=== PATIENT | female | born 1955 | race Caucasian/White ===

== ENCOUNTER 2019-07-09 10:30 | Outpatient (RCR) | payer OTHER, SELFPAY ==
[2019-06-11 14:01] VITALS: BMI 32.9
--- NOTE | 2019-06-24 12:50 | HP.PTEVAL ---
Patient's Visit Information SUNDAR DOWNEY is a 63 year old F referred to Physical Therapy by Galdino Angulo MD with a diagnosis of R achilles tendonitis. Date of Evaluation: 06/24/19 Physical Therapist: Dominik Frey DPT, OCS, CSCS - Visit Plan Frequency: 2x /Week Duration: 2 Months Plan: 2x/week for 4-8 weeks for. 1. US nonthermal to R achilles, rollout gastroc soelus and stretch same. 2. Eccentric strength R gastroc-soleus to tolerance. 3. strengthen R ankle. 4. pt using a heel lift so monitor this effectiveness for need to go to boot or crutch. 5. ES if needed for pain. - Subjective Findings: Achilles tendon bothering her since January vacationa dn worsening. Worse wehn on it. Was walking in sand at beach more than usual. Painful when got home. Pain is R achilles and swollen. Pain is to 4/10 after walking, lessens at rest but is constant. Tender to the touch. Went to family doctor recently and sent for PT. didnt think it was ruptured. No meds for this. No x ray. Sleep is sometimes interrupted by waking her up. 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 Drives up to [place] and it hurts ot drive. Morngings are tough as she has RA also. Basic ADLs are OK. Can't walk for fitness. Normally 30 minutes on TM and has stopped due to pain. - Pain R achilles Pain Intensity (Out of 10): 1 Pain Intensity Range: 1, 4 - Objective R antalgia slightly with gait today and more noticeable descending steps with initial plant. Trasnfers, walks and steps I today. Tender to palpation midsubstance of R achilles tendon2 inches above insertion. Palpable nodule medially on tendon. R ankle 0 DF knee straight and bent vs 5 degrees on L, tight is gastroc and soleus. Knee adn hip aROM WFL and withotu pain. Sensation LE WNL to gross light touch. Ankle strength 4 PF R, 4+ L and painful to walk on R toe. inv and ev and DF 4+ L and 4 R, No pain. - Goals Goal 1:: Sleep and walk at home without increased pain Goal Time Frame: 4-6 Weeks Goal 2:: Pt feel 90% better in achilles pain at 1/10 and intermittent. Goal Time Frame: 6-8 Weeks Goal 3:: I HEP to minimize future problems Goal Time Frame: 6-8 Weeks Goal 4:: LEFS <20% disability Goal Time Frame: 6-8 Weeks Goal 5:: Steps reciprocally without pain. Goal Time Frame: 6-8 Weeks - Rehabilitation Potential Physical Therapy Diagnosis: R achilles tendonitis Rehabilitation Potential: Fair - Anticipated Interventions Patient/Client Instruction: Educate patient on: Condition, Plan of Care For the Purpose of:: To decrease pain, To increase ROM, To improve muscle performance and motor function, To increase tolerance to activity/condition/position, To improve ability of physical actions for home/community/work/leisure, To improve gait and locomotor functions Therapeutic Exercise to Include: Strength training, Flexibilty training, Gait and locomotor training, Passive ROM, Active ROM For the Purpose of:: To decrease pain, To increase ROM, To improve muscle performance and motor function, To increase tolerance to activity/condition/position, To improve ability of physical actions for home/community/work/leisure Manual Therapy Techniques to Include: Passive ROM, Soft tissue mobilization For the Purpose of:: To decrease pain, To improve nutrient delivery to tissue, To increase tolerance to activity/condition/position Orthotics: Shoe insert Comment: heel lift For the Purpose of:: To improve ability of physical actions for home/community/work/leisure TENS: Yes Ultrasound (thermal/non thermal): Yes - nonthermal R achilles For the Purpose of:: To decrease pain, To decrease swelling/inflammation Thank you for the opportunity to evaluate your patient. For Medicare and Medicare HMO plans, please review the plan of care and approve it. It will need to be FAXED BACK to us at [phone] for Medicare purposes. For Medicare only, by signing this I certify the plan of care. Please let me know if there are questions or concerns regarding this plan of care. Physician Signature: Date:
--- NOTE | 2019-09-05 09:17 | HP.PT.NRP ---
HP - Discharge Summary (1) - Patient Information SUNDAR DOWNEY was seen in my office for initial evaluation on 06/24/19. The following Plan of Care was established for this patient: Initial Frequency: 2x /Week Initial Duration: 2 Months - Anticipated Interventions Patient/Client Instruction: Educate patient on: Condition, Plan of Care For the Purpose of:: To decrease pain, To increase ROM, To improve muscle performance and motor function, To increase tolerance to activity/condition/position, To improve ability of physical actions for home/community/work/leisure, To improve gait and locomotor functions Therapeutic Exercise to Include: Strength training, Flexibilty training, Gait and locomotor training, Passive ROM, Active ROM For the Purpose of:: To decrease pain, To increase ROM, To improve muscle performance and motor function, To increase tolerance to activity/condition/position, To improve ability of physical actions for home/community/work/leisure Manual Therapy Techniques to Include: Passive ROM, Soft tissue mobilization For the Purpose of:: To decrease pain, To improve nutrient delivery to tissue, To increase tolerance to activity/condition/position Orthotics: Shoe insert Comment: heel lift For the Purpose of:: To improve ability of physical actions for home/community/work/leisure TENS: Yes Ultrasound (thermal/non thermal): Yes - nonthermal R achilles For the Purpose of:: To decrease pain, To decrease swelling/inflammation This patient was last seen in our office 07/09/19. Pertinent comments regarding their Physical therapy will appear below: Pt seen four visits of POC adn was feelign much better. she cancelled the remaining visits including final recheck. at this point, it has been over 6 weeks adn I will discontinue her due to nonattendance. At this point I will be discontinuing this patient from physical therapy. I would be happy to see this patient again in the future if found appropriate by the physician. Thank you! Dominik Frey, DPT, OCS, CSCS
== END 2019-07-09 19:00 | disposition home or self-care (01) ==
LOC: PT 10:30
PROVIDERS: Family Provider Family Medicine; PCP Family Medicine; Referring Provider Family Medicine; Visit Provider Family Medicine
DX: M76.61 Achilles tendinitis, right leg (principal)
CPT/HCPCS: 97110; 97161; 97530

== ENCOUNTER → 2020-09-23 | Outpatient (CLI) | payer BC, SELFPAY ==
[2020-06-16 13:33] VITALS: BMI 32.6
== END | disposition home or self-care (01) ==
LOC: MFPLAB 14:29 → LABSPEC 14:30
PROVIDERS: PCP Family Medicine; Referring Provider Family Medicine; Visit Provider Family Medicine
DX: Z20.822 Contact with and (suspected) exposure to COVID-19 (principal)
CPT/HCPCS: 87635; U0005; U0003

== ENCOUNTER → 2021-01-03 13:46 | Outpatient (CLI) | payer MEDICARE, BC, SELFPAY ==
[2020-06-16 13:33] VITALS: BMI 32.6
--- NOTE | 2021-01-03 13:53 | RAD_ITS ---
STUDY: X-RAY CHEST REASON FOR EXAM: Female, 65 years old. NON CARDIAC CP TECHNIQUE: PA and lateral views of the chest. COMPARISON: Comparison is made with prior study dated 01/07/2012. FINDINGS: Stable elevation of the right hemidiaphragm. There is no demonstrated pleural abnormality. Normal size heart. Normal mediastinum and trino. Normal visualized pulmonary arteries. There is atherosclerotic calcification of the aortic arch with tortuosity. There is demineralization of the osseous structures. Normal visualized ribs, clavicles, and shoulders. There is no demonstrated abnormality of the visualized soft tissue structures of the upper abdomen. RAD/Chest PA and Lateral IMPRESSION: Stable examination. No acute abnormality is seen. Electronically Signed: Sachin Mensah MD at 13:57 EDT , Service support ,
== END ==
PROVIDERS: PCP Family Medicine; Referring Provider Family Medicine; Visit Provider Family Medicine
DX: R07.89 Other chest pain (principal)
CPT/HCPCS: 71046

== ENCOUNTER → 2021-02-18 09:43 | Outpatient (CLI) | payer MEDICARE, BC, SELFPAY ==
[2021-02-18 09:13] VITALS: BMI 32.9
[2021-02-18 12:42] LABS: AST(SGOT) 31 U/L (15-37); Alanine Aminotransfer ALT/SGPT 58 U/L (13-56); Albumin, Serum 3.9 g/dL (3.2-5.0); Alkaline Phosphatase 87 U/L (45-117); Bilirubin, Direct 0.09 mg/dL (0.00-0.30); Cholesterol 207 mg/dL (200); Globulin 3.9 g/dL (2.2-4.2); High Density Lipoprotein 74 mg/dL; Protein, Total 7.8 g/dL (6.4-8.2); Triglycerides 95 mg/dL; Very Low Density Lipoprotein 19 mg/dL (5-40)
[2021-02-18 14:10] LABS: Vitamin D,25 Hydroxy 37.6 ng/mL
== END ==
PROVIDERS: Nurse Practitioner Family; PCP Internal Medicine; Referring Provider Internal Medicine; Visit Provider Internal Medicine
DX: E78.2 Mixed hyperlipidemia (principal); E78.00 Pure hypercholesterolemia, unspecified; M85.80 Other specified disorders of bone density and structure, unspecified site
CPT/HCPCS: 36415; 80061; 80076; 82306

== ENCOUNTER → 2021-06-01 09:10 | Outpatient (CLI) | payer MEDICARE, BC, SELFPAY ==
[2021-06-01 12:41] LABS: AST(SGOT) 38 U/L (15-37); Alanine Aminotransfer ALT/SGPT 66 U/L (13-56); Albumin, Serum 3.6 g/dL (3.2-5.0); Alkaline Phosphatase 88 U/L (45-117); Bilirubin, Direct 0.16 mg/dL (0.00-0.30); Cholesterol 189 mg/dL (200); Globulin 3.9 g/dL (2.2-4.2); High Density Lipoprotein 66 mg/dL; Protein, Total 7.5 g/dL (6.4-8.2); Triglycerides 138 mg/dL; Very Low Density Lipoprotein 28 mg/dL (5-40)
== END ==
PROVIDERS: PCP Internal Medicine; Referring Provider Nurse Practitioner Family; Visit Provider Nurse Practitioner Family
DX: E78.2 Mixed hyperlipidemia (principal); I25.10 Atherosclerotic heart disease of native coronary artery without angina pectoris
CPT/HCPCS: 36415; 80061; 80076

== ENCOUNTER 2021-08-19 11:25 | Outpatient (CLI) | payer MEDICARE, BC, SELFPAY ==
[2021-08-19 12:25] LABS: Absolute Lymphocyte Count 1.42 X10^3/uL (0.83-4.51); Basophil# 0.06 X10^3/uL; Basophil% 0.8 % (0-1); Eosinophil# 0.09 X10^3/uL; Eosinophils% 1.2 % (0-5); Hematocrit 45.1 % (37-47); Hemoglobin 15.8 g/dL (12.0-15.0); Lymphocyte # 1.42 X10^3/ul (0.83-4.51); Lymphocyte % 19.7 % (19-41); Mean Corpuscular Hgb 32.5 pg (27.0-32.0); Mean Corpuscular Volume 92.8 fL (81-99); Mean Platelet Vol. 8.3 fl (6.2-12.0); Monocyte# 0.58 X10^3/uL; NRBC Flagged by Analyzer 0 % (0-5); Neutrophil # 5.03 X10^3/uL (2.7-7.7); Neutrophil % 69.9 % (47-70); Platelet Count 216 K/mm3 (150-450); RBC Distribution Width CV 12.2 % (11.6-14.6); RBC Distribution Width SD 41.6 fl (35.1-43.9); Red Blood Count 4.86 M/mm3 (4.2-5.4); White Blood Count 7.2 K/mm3 (4.4-11.0)
[2021-08-19 13:03] LABS: Anion Gap 5 (5-15); BUN 17 mg/dL (7-18); BUN/Creat Ratio 30.4 RATIO (10-20); Calcium,Total 9.3 mg/dL (8.5-10.1); Chloride 106 mmol/L (98-107); Creatinine, Serum 0.56 mg/dL (0.55-1.02); EST Glomerular Filtration Rate 115 mL/min (>60); Est Glom Filt Rate - Afr Amer 140 mL/min (>60); Glucose 101 mg/dL (74-106); Potassium 4.3 mmol/L (3.5-5.1); Sodium Level 137 mmol/L (136-145)
== END 2021-08-19 23:59 | disposition short-term general hospital (02) ==
LOC: BIMLAB 11:26
PROVIDERS: PCP Internal Medicine; Referring Provider Internal Medicine; Visit Provider Internal Medicine
DX: I10 Essential (primary) hypertension (principal); I25.10 Atherosclerotic heart disease of native coronary artery without angina pectoris
CPT/HCPCS: 36415; 80048; 85025

== ENCOUNTER → 2021-12-09 | Outpatient (CLI) | payer MEDICARE, BC, SELFPAY ==
[2021-12-09 12:33] LABS: AST(SGOT) 41 U/L (15-37); Alanine Aminotransfer ALT/SGPT 64 U/L (13-56); Albumin, Serum 3.9 g/dL (3.2-5.0); Alkaline Phosphatase 86 U/L (45-117); Cholesterol 202 mg/dL (200); Globulin 3.7 g/dL (2.2-4.2); High Density Lipoprotein 57 mg/dL; Protein, Total 7.6 g/dL (6.4-8.2); Triglycerides 167 mg/dL; Very Low Density Lipoprotein 33 mg/dL (5-40)
== END | disposition home or self-care (01) ==
LOC: BIMLAB 08:54
PROVIDERS: PCP Internal Medicine; Referring Provider Nurse Practitioner Family; Visit Provider Nurse Practitioner Family
DX: E78.00 Pure hypercholesterolemia, unspecified (principal); E78.2 Mixed hyperlipidemia
CPT/HCPCS: 36415; 80061; 80076

== ENCOUNTER → 2022-06-05 | Outpatient (CLI) | payer MEDICARE, BC, SELFPAY ==
[2022-06-05 12:23] LABS: Anion Gap 8 (5-15); BUN 15 mg/dL (7-18); BUN/Creat Ratio 25.6 RATIO (10-20); Calcium,Total 9.6 mg/dL (8.5-10.1); Chloride 103 mmol/L (98-107); Creatinine, Serum 0.59 mg/dL (0.55-1.02); EST Glomerular Filtration Rate 109 mL/min (>60); Est Glom Filt Rate - Afr Amer 132 mL/min (>60); Glucose 109 mg/dL (74-106); Potassium 4.6 mmol/L (3.5-5.1); Sodium Level 137 mmol/L (136-145)
[2022-06-05 12:33] LABS: AST(SGOT) 27 U/L (15-37); Alanine Aminotransfer ALT/SGPT 46 U/L (13-56); Albumin, Serum 3.4 g/dL (3.2-5.0); Alkaline Phosphatase 89 U/L (45-117); Bilirubin, Direct 0.14 mg/dL (0.00-0.30); Cholesterol 191 mg/dL (200); Globulin 3.5 g/dL (2.2-4.2); High Density Lipoprotein 66 mg/dL; Protein, Total 6.9 g/dL (6.4-8.2); Triglycerides 123 mg/dL; Very Low Density Lipoprotein 25 mg/dL (5-40)
[2022-06-06 14:35] LABS: Hemoglobin A1c 5.4 % (3.8-5.6)
== END | disposition home or self-care (01) ==
LOC: BIMLAB 08:36
PROVIDERS: Nurse Practitioner Family; PCP Internal Medicine; Referring Provider Nurse Practitioner Family; Visit Provider Nurse Practitioner Family
DX: R73.09 Other abnormal glucose (principal); E78.00 Pure hypercholesterolemia, unspecified; I10 Essential (primary) hypertension
CPT/HCPCS: 36415; 80048; 80061; 80076; 83036

== ENCOUNTER → 2022-07-18 | Outpatient (CLI) | payer MEDICARE, BC, SELFPAY ==
[2022-07-18 10:59] LABS: Bacteria 0 SEEN /hpf (None Seen); Mucous, Urine 0 SEEN /hpf (<or=2+); Red Blood Cells-Urine 0 SEEN /hpf (0-5)
[2022-07-18 12:33] LABS: Absolute Lymphocyte Count 1.67 X10^3/uL (0.83-4.51); Absolute Neutrophil Count 6.4 X10^3/uL (2.0-7.7); Basophil# 0.07 X10^3/uL; Basophil% 0.8 % (0-1); Eosinophils% 1.1 % (0-5); Hematocrit 46.8 % (37-47); Hemoglobin 16.5 g/dL (12.0-15.0); Lymphocyte # 1.67 X10^3/ul (0.83-4.51); Lymphocyte % 18.6 % (19-41); Mean Corp Hgb Conc 35.3 g/dL (32-36); Mean Corpuscular Hgb 33.5 pg (27.0-32.0); Mean Corpuscular Volume 94.9 fL (81-99); Mean Platelet Vol. 8.5 fl (6.2-12.0); Monocyte# 0.71 X10^3/uL; Monocyte% 7.9 % (0-10); NRBC Flagged by Analyzer 0 % (0-5); Neutrophil # 6.42 X10^3/uL (2.7-7.7); Neutrophil % 71.3 % (47-70); Platelet Count 231 K/mm3 (150-450); RBC Distribution Width CV 12.1 % (11.6-14.6); RBC Distribution Width SD 41.9 fl (35.1-43.9); Red Blood Count 4.93 M/mm3 (4.2-5.4)
[2022-07-18 12:52] LABS: ALB/GLOB Ratio 1.1 RATIO (0.9-2.4); AST(SGOT) 36 U/L (15-37); Alanine Aminotransfer ALT/SGPT 55 U/L (13-56); Albumin, Serum 3.8 g/dL (3.2-5.0); Alkaline Phosphatase 94 U/L (45-117); Anion Gap 6 (5-15); BUN 12 mg/dL (7-18); BUN/Creat Ratio 16.5 RATIO (10-20); Calcium,Total 9.5 mg/dL (8.5-10.1); Chloride 104 mmol/L (98-107); Creatinine, Serum 0.73 mg/dL (0.55-1.02); EST Glomerular Filtration Rate 85 mL/min (>60); Est Glom Filt Rate - Afr Amer 103 mL/min (>60); Globulin 3.4 g/dL (2.2-4.2); Glucose 116 mg/dL (74-106); Lipase 134 U/L (73-393); Potassium 4.7 mmol/L (3.5-5.1); Protein, Total 7.2 g/dL (6.4-8.2); Sodium Level 138 mmol/L (136-145)
[2022-07-18 13:01] LABS: Color, Urine Yellow (Yellow); Glucose, Dipstick Normal (Normal); Ketone-Dipstick 5 mg/dl (Negative); Leukocyte Esterase-Dipstick 25 /ul (Negative); Nitrite-Dipstick Negative (Negative); Occult Blood-Urine Negative /ul (Negative); Protein-Dipstick 15 mg/dl (Negative); Urine Bilirubin Dipstick Negative (Negative); Urine Clarity Sl. Cloudy (Clear); Urine Urobilinogen 1 mg/dl (Normal)
[2022-07-18 13:12] LABS: Squamous Epithelial Cells - UA 0-5 SEEN /hpf (5-10); White Blood Cells 0-5 SEEN /hpf (0-5)
== END | disposition home or self-care (01) ==
LOC: BIMLAB 10:58 → RAD 11:18 → BIMLAB 12:09
PROVIDERS: PCP Internal Medicine; Referring Provider Physician Assistant; Visit Provider Physician Assistant
DX: I10 Essential (primary) hypertension (principal); R10.9 Unspecified abdominal pain
CPT/HCPCS: 36415; 80053; 81001; 83690; 85025; 86140

== ENCOUNTER → 2022-12-12 | Outpatient (CLI) | payer MEDICARE, BC, SELFPAY | END | disposition home or self-care (01) | PROVIDERS: PCP Internal Medicine; Visit Provider Internal Medicine | DX: R10.9 Unspecified abdominal pain (principal); K57.92 Diverticulitis of intestine, part unspecified, without perforation or abscess without bleeding | CPT/HCPCS: 87086; 87088 ==

== ENCOUNTER → 2023-04-09 | Outpatient (CLI) | payer MEDICARE, BC, SELFPAY ==
[2023-04-09 13:03] LABS: AST(SGOT) 30 U/L (15-37); Alanine Aminotransfer ALT/SGPT 51 U/L (13-56); Albumin, Serum 3.5 g/dL (3.2-5.0); Alkaline Phosphatase 94 U/L (45-117); Bilirubin, Direct 0.11 mg/dL (0.00-0.30); Cholesterol 188 mg/dL (200); Globulin 3.6 g/dL (2.2-4.2); High Density Lipoprotein 62 mg/dL; Protein, Total 7.1 g/dL (6.4-8.2); Triglycerides 134 mg/dL; Very Low Density Lipoprotein 27 mg/dL (5-40)
== END | disposition home or self-care (01) ==
LOC: BIMLAB 09:41
PROVIDERS: PCP Internal Medicine; Referring Provider Physician Assistant Medical; Visit Provider Physician Assistant Medical
DX: E78.2 Mixed hyperlipidemia (principal); Z95.5 Presence of coronary angioplasty implant and graft
CPT/HCPCS: 36415; 80061; 80076

== ENCOUNTER → 2023-04-23 | Outpatient (CLI) | payer MEDICARE, BC, SELFPAY ==
--- NOTE | 2023-04-23 16:35 | STRESSREP_ITS ---
Stress Test Report Date: 04/23/2023 Procedure: Exercise tolerance test/imaging study Indications: Coronary artery disease Consent: Per the patient Procedure: The patient exercised on a Tang protocol for 3 minutes and 34 seconds achieving a peak heart rate of 171 bpm (111% predicted maximal heart rate) with a peak blood pressure 168/90 mmHg and a peak MET capacity of 5.9 METs. The baseline ECG demonstrated sinus rhythm. The peak exercise ECG demonstrated no ischemic changes. Rare PVC noted in recovery. The functional capacity was considered suboptimal. There was no complaint of chest discomfort during exercise or recovery. The examination was discontinued secondary to target heart rate being achieved. The patient was injected with 11 mCi of technetium 99m Cardiolite and subsequently rest SPECT Cardiolite nuclear imaging was obtained in the horizontal long, vertical long, and short axis views. Post-exercise, the patient was injected with 34.9 mCi of technetium 99m Cardiolite and subsequently stress SPECT Cardiolite nuclear imaging was obtained in the horizontal long, vertical long, and short axis views. A gated Cardiolite study at peak stress was obtained. Rest and stress SPECT Cardiolite nuclear imaging status post realignment, normalization, and attenuation correction, demonstrates the appearance of relative uniform tracer uptake and myocardial perfusion appearing within normal limits. There is end systolic thickening and brightening. The gated Cardiolite study demonstrates myocardial thickening and inward wall motion. The reported LVEF is 79%. Impression: 1. Technically adequate (percent predicted maximal heart rate greater than 85%) exercise tolerance test 2. Peak exercise ECG with no ischemic changes 3. Rare PVC noted during recovery 4. Rest and stress SPECT Cardiolite nuclear imaging demonstrate relative uniform tracer uptake and myocardial perfusion appearing within normal limits. 5. The gated Cardiolite study reports an LVEF of 79%. This note was generated with HeadCountation software. It may contain incorrect words, spelling, and punctuation that were not noted in checking the note before signing.
== END | disposition home or self-care (01) ==
LOC: CVS 07:14
PROVIDERS: PCP Internal Medicine; Referring Provider Physician Assistant Medical; Visit Provider Physician Assistant Medical
DX: I25.10 Atherosclerotic heart disease of native coronary artery without angina pectoris (principal); Z95.5 Presence of coronary angioplasty implant and graft
CPT/HCPCS: 78452; 93017; A9500; A4216

== ENCOUNTER → 2023-04-25 | Outpatient (CLI) | payer MEDICARE, BC, SELFPAY ==
[2023-04-25 14:18] LABS: Absolute Lymphocyte Count 1.99 X10^3/uL (0.83-4.51); Absolute Neutrophil Count 8.2 X10^3/uL (2.0-7.7); Basophil# 0.06 X10^3/uL; Basophil% 0.5 % (0-1); Eosinophil# 0.14 X10^3/uL; Eosinophils% 1.2 % (0-5); Hematocrit 45.6 % (37-47); Hemoglobin 15.7 g/dL (12.0-15.0); Lymphocyte # 1.99 X10^3/ul (0.83-4.51); Lymphocyte % 17.6 % (19-41); Mean Corp Hgb Conc 34.4 g/dL (32-36); Mean Corpuscular Hgb 32.4 pg (27.0-32.0); Mean Platelet Vol. 8.3 fl (6.2-12.0); Monocyte# 0.79 X10^3/uL; NRBC Flagged by Analyzer 0 % (0-5); Neutrophil # 8.24 X10^3/uL (2.7-7.7); Neutrophil % 73.2 % (47-70); Platelet Count 267 K/mm3 (150-450); RBC Distribution Width CV 12.5 % (11.6-14.6); RBC Distribution Width SD 42.8 fl (35.1-43.9); Red Blood Count 4.85 M/mm3 (4.2-5.4); White Blood Count 11.3 K/mm3 (4.4-11.0)
[2023-04-25 14:25] LABS: International Normalized Ratio 0.9; Prothrombin Time (Protime)PT. 12.6 SECONDS (11.7-14.9)
[2023-04-25 14:37] LABS: Ferritin 151 ng/mL (8-252); LDH 178 U/L (84-246)
[2023-04-25 14:42] LABS: Hemoglobin A1c 5.5 % (3.8-5.6)
[2023-04-27 16:09] LABS: AFP, Tumor Marker 5.1 ng/mL (0.0-9.2); Anti-Centromere B Ab <0.2 AI (0.0-0.9); Anti-Chromatin <0.2 AI (0.0-0.9); Anti-Jo <0.2 AI (0.0-0.9); Anti-Mitochondrial AB <20.0 Units (0.0-20.0); Anti-Scleroderma-70 AB <0.2 AI (0.0-0.9); Anti-Smooth Muscle ABS 7 Units (0-19); Anti-dsDNA Ab <1 IU/mL (0-9); Cytoplasmic Ab (C-ANCA) <1:20 titer (Neg:<1:20); HEPATITIS B SURFACE AG Negative (Negative); Hep C Antibodies Non Reactive (Non Reactive); Hepatitis A IgM Antibody Negative (Negative); Hepatitis B Core AB IgM Negative (Negative); Perinuclear Ab (P-ANCA) <1:20 titer (Neg:<1:20); RNP Ab <0.2 AI (0.0-0.9); SJOGREN'S Anti-SS-A test < 0.2 AI (0.0-0.9); SJOGREN'S Anti-SS-B test < 0.2 AI (0.0-0.9); Smith Ab <0.2 AI (0.0-0.9)
== END | disposition home or self-care (01) ==
LOC: LAB 13:43
PROVIDERS: PCP Internal Medicine; Referring Provider Internal Medicine Gastroenterology; Visit Provider Internal Medicine Gastroenterology
DX: K76.0 Fatty (change of) liver, not elsewhere classified (principal); E11.9 Type 2 diabetes mellitus without complications; K52.831 Collagenous colitis; K57.92 Diverticulitis of intestine, part unspecified, without perforation or abscess without bleeding; K75.9 Inflammatory liver disease, unspecified; E78.2 Mixed hyperlipidemia
CPT/HCPCS: 36415; 80074; 82105; 82728; 83036; 83516; 83615; 85025; 85610; 86140; 86225; 86235; 86256

== ENCOUNTER → 2023-05-12 | Outpatient (CLI) | payer MEDICARE, BC, SELFPAY ==
--- NOTE | 2023-05-12 08:49 | US_ITS ---
STUDY: ABDOMINAL ULTRASOUND - RIGHT UPPER QUADRANT REASON FOR VISIT: Female, 67 years old . Fatty infiltration of the liver. TECHNIQUE: Ultrasound evaluation of the right upper quadrant was performed with real-time and static means-scale imaging. TECHNICAL QUALITY: Adequate. COMPARISON: None. FINDINGS: Liver: The liver measures 16 cm. There is increased echogenicity consistent with fatty infiltration. The bile ducts are within normal limits. There is hepatic color flow. The direction of portal flow is hepatopetal. There is no demonstrated mass lesion. Gallbladder: Normal distended gallbladder. The gallbladder wall measures 2.2 mm. There is a negative sonographic Schroeder''s sign. There is no pericholecystic fluid. There are no gallstones. Common Bile Duct (C.B.D.): The common bile duct measures 8.1 mm. Pancreas: Normal size of the head, body and tail of the pancreas. There is normal echogenicity of the pancreas. There is no demonstrated pancreatic mass or cyst. Right Kidney: Normal size of the right kidney. The right kidney measures 10.8 cm x 4.8 cm x 4.4 cm. Normal renal cortex. The right cortex measures 1.8 cm. There is no demonstrated renal mass or cyst. There is no right hydronephrosis. IMPRESSION: Fatty infiltration of the liver. Electronically Signed: Sachin Mensah MD at 13:27 EDT , STUDY: ABDOMINAL ULTRASOUND - ELASTOGRAPHY REASON FOR VISIT: Female, 67 years old. Fatty infiltration of the liver. TECHNIQUE: Liver stiffness measurements were obtained on a [employer] 85 ultrasound machine using a CA 1-7 probe following the SRU guidelines. 3 measurements were obtained using a 2-D-SWE method. TheIQR/M was 14% suggesting a quality data set. TECHNICAL QUALITY: Adequate. COMPARISON: None. FINDINGS: Liver: There is no demonstrated mass lesion. Median liver stiffness measured 7.73 kPa. Abdomen: There is no demonstrated mass lesion. US/Abdomen Limited IMPRESSION: Liver stiffness measures 7.73 kPa compatible with F2-F3 (Mild to moderate liver fibrosis) Metavir score. Electronically Signed: Sachin Mensah MD at 13:28 EDT ,
== END | disposition home or self-care (01) ==
LOC: US 08:49
PROVIDERS: PCP Internal Medicine; Referring Provider Internal Medicine Gastroenterology; Visit Provider Internal Medicine Gastroenterology
DX: K76.0 Fatty (change of) liver, not elsewhere classified (principal); K52.831 Collagenous colitis; K57.92 Diverticulitis of intestine, part unspecified, without perforation or abscess without bleeding
CPT/HCPCS: 76705; 76981

== ENCOUNTER → 2023-07-25 | Outpatient (CLI) | payer MEDICARE, BC, SELFPAY ==
[2023-07-25 12:40] LABS: AST(SGOT) 27 U/L (15-37); Alanine Aminotransfer ALT/SGPT 47 U/L (13-56); Albumin, Serum 3.6 g/dL (3.2-5.0); Alkaline Phosphatase 79 U/L (45-117); Bilirubin, Direct 0.06 mg/dL (0.00-0.30); Globulin 3.6 g/dL (2.2-4.2); Protein, Total 7.2 g/dL (6.4-8.2)
== END | disposition home or self-care (01) ==
LOC: BIMLAB 09:30
PROVIDERS: PCP Internal Medicine; Referring Provider Internal Medicine Rheumatology; Visit Provider Internal Medicine Rheumatology
DX: R74.8 Abnormal levels of other serum enzymes (principal)
CPT/HCPCS: 36415; 80076

== ENCOUNTER → 2023-08-06 | Outpatient (CLI) | payer MEDICARE, BC, SELFPAY ==
[2023-08-06 12:28] LABS: Erythrocyte Sedimentation Rate 12 mm/hr (0-30)
== END | disposition home or self-care (01) ==
LOC: BIMLAB 11:31
PROVIDERS: PCP Internal Medicine
DX: H34.231 Retinal artery branch occlusion, right eye (principal)
CPT/HCPCS: 36415; 85652; 86140

== ENCOUNTER → 2023-08-23 | Outpatient (CLI) | payer MEDICARE, BC, SELFPAY ==
--- NOTE | 2023-08-23 09:50 | ECHOCS_ITS ---
Version 2 Reason For Study: ASHD/CAD Procedure This was a 2D Doppler, Color Flow transthoracic echocardiogram. The study was technically difficult. Contrast injection was performed. Exam performed in department. Left Ventricle Normal LV size. Left ventricular systolic function is normal. The estimated ejection fraction is 60 %. Stage 1 diastolic dysfunction. No regional wall motion abnormalities noted. Right Ventricle Normal RV size. Normal systolic function. Atria Normal left atrium. Normal right atrium. Bubble contrast study negative for right to left interatrial shunt. Mitral Valve Normal mitral valve. Mild focal mitral valve calcification. Tricuspid Valve Normal tricuspid valve. Mild tricuspid valve insufficiency. Pulmonary artery systolic pressure is 24 mmHg. Aortic Valve Trisinus/trileaflet aortic valve. Mild focal aortic valve calcification. Pulmonic Valve The pulmonic valve is not well visualized. Great Vessels Normal aortic root. The pulmonary artery is normal size. Inferior vena cava collapse with sniff. Pericardium/Pleural No pericardial effusion. Medication 20 gauge I.V. with prn adaptor inserted into right arm. Diluted definity 2ml given slow IV push to enhance endocardial definition. Performed a rapid injection of agitated mix of 9 cc saline and 1cc air to assess for atrial septal defect. MMode/2D Measurements & Calculations LVIDd: 4.8 cm IVSd: 1.0 cm Ao root diam: 3.1 cm LVIDs: 3.3 cm LVPWd: 0.94 cm LA dimension: 4.0 cm RVDd: 3.1 cm FS: 31.7 % LAV(MOD-bp): 45.1 ml LVAd ap4: 27.4 cm2 SV(MOD-sp4): 42.4 ml LAV(MOD-bp) Indexed: 21.9 ml/m2 LVLd ap4: 8.4 cm LAV(MOD-sp2): 37.4 ml EDV(MOD-sp4): 72.7 ml LAV(MOD-sp4): 48.8 ml EDV(sp4-el): 75.8 ml LVAs ap4: 15.7 cm2 LVLs ap4: 6.7 cm ESV(MOD-sp4): 30.3 ml ESV(sp4-el): 31.2 ml EF(MOD-sp4): 58.3 % EF(sp4-el): 58.9 % SV(sp4-el): 44.7 ml LA A4 area: 17.8 cm2 RA A4 area: 11.1 cm2 TAPSE: 1.1 cm Time Measurements MV dec time: 0.41 sec Doppler Measurements & Calculations MV E max peter: 46.0 cm/sec Lat Peak E' Peter: 6.0 cm/sec Med Peak E' Peter: 6.1 cm/sec MV A max peter: 88.3 cm/sec E/E' lat: 7.7 E/E' med: 7.5 MV E/A: 0.52 MV V2 max: 113.5 cm/sec MV P1/2t max peter: 68.2 cm/sec Ao V2 max: 111.3 cm/sec MV max P.2 mmHg MV P1/2t: 130.1 msec Ao max P.0 mmHg MV V2 mean: 51.0 cm/sec Ao V2 mean: 78.7 cm/sec MV mean P.3 mmHg MV dec slope: 153.7 cm/sec2 Ao mean P.8 mmHg MV V2 VTI: 28.6 cm MVA(P1/2t): 1.7 cm2 Ao V2 VTI: 26.0 cm AV (velocity ratio): 0.73 LV V1 max: 88.2 cm/sec PA V2 max: 67.7 cm/sec TR max peter: 229.5 cm/sec LV V1 max P.1 mmHg TR max P.1 mmHg LV V1 mean P.7 mmHg LV V1 mean: 61.8 cm/sec LV V1 VTI: 19.1 cm ECHO/Echo Complete W/ Contrast Interpretation Summary Normal LV size. Left ventricular systolic function is normal. The estimated ejection fraction is 60 %. Mild focal mitral valve calcification. Bubble contrast study negative for right to left interatrial shunt. Stage 1 diastolic dysfunction. Contrast injection was performed. Ordering Physician: Daisha Davis Referring Physician: Janis Lehman Performed By: Jamaal Cruz RCS
--- NOTE | 2023-08-23 09:50 | CDU_ITS ---
Reason For Study: retinal occlusion Rt. Velocities/BP Lt. Velocities/BP Prox CCA 71.1/12.6 cm/sec. Prox CCA 81.4/15.1 cm/sec. Mid CCA 73.0/15.4 cm/sec. Mid CCA 59.3/16.3 cm/sec. Dist CCA 50.4/13.5 cm/sec. Dist CCA 56.4/16.8 cm/sec. Prox ICA 265.1/83.7 cm/sec. Prox ICA 64.2/20.6 cm/sec. Mid ICA 226.3/60.4 cm/sec. Mid ICA 73.8/24.8 cm/sec. Dist ICA 66.4/20.1 cm/sec. Dist ICA 101.3/24.6 cm/sec. Rt. ICA/CCA = 3.6. Lt. ICA/CCA = 1.7. Prox ECA 84.4/10.7 cm/sec. Prox ECA 67.4/8.0 cm/sec. Rt. Vert. 43.7/14.5 cm/sec. Lt. Vert. 53.5/14.2 cm/sec. Right Extracranial There is heterogeneous, irregular atherosclerotic plaque noted in the right common carotid artery. There is heterogeneous, irregular atherosclerotic plaque noted in the right internal carotid artery. There is intimal thickening but no significant atherosclerotic plaque noted in the right external carotid artery. Antegrade flow is noted in the right vertebral artery. Left Extracranial There is homogeneous, smooth atherosclerotic plaque noted in the left common carotid artery. There is heterogeneous, irregular atherosclerotic plaque noted in the left internal carotid artery. There is heterogeneous, irregular atherosclerotic plaque noted in the left external carotid artery. Antegrade flow is noted in the left vertebral artery. Procedure Carotid Duplex [id number]. This is a Carotid Duplex examination using B-mode, color flow and specral Doppler. The exam was diagnostic. Prelim called to Margy BAHENA and to voicemail to Daisha SPEAR. Exam performed in department. VL/Carotid Duplex Ultrasound Interpretation Summary Severe (>70%) stenosis right extracranial internal carotid. Mild (<50%) stenosis left extracranial internal carotid. Patent and antegrade vertebrals bilaterally. Ordering Physician: Daisha Davis Performed By: Lucas Kelley RVT
--- OUTSIDE RECORDS SUMMARY | 2023-08-23 10:15 | XMS RPT_ITS | CCD ---
Author Name Unknown Address [address] [facility] [address] [place] [address] Organization [facility] Care Team Providers Care Naphthalene Operator Helper Name Role Phone Miguel GERMAN, Brad Christianson Unavailable Jenny Bueno Unavailable Unavailable Sage BAHENA, Daisha Cook Unavailable JEISON ANTUNEZ Unavailable Unavailable JEISON ANTUNEZ Unavailable Unavailable NO REFERRING DR Cutler Unavailable JEISON ANTUNEZ Unavailable Unavailable JEISON ANTUNEZ Unavailable Unavailab JEISON Lopes Unavailable Unavailab dannielle Antunez MD, Jeison Kelly Unavailable Sage BAHENA, Daisha Cook Unavailable [phone] Deepak Verduzco Unavailable Unavailable SHARRON MANSFIELD Primary Care Unavailable CAMILA DE PAZ Referring Unavailable SHYLA GERMAN, DR SHARRON Atwood Primary Care Physician [phone] SHYLA GERMAN, DR SHARRON Atwood Primary Care Unavailable KYLER GONCALVES Attending UnavailKYLER Gupta Referring UnavailDR DELROY Brown DO Attending Omayra MANSFIELD MD, DR SHARRON Atwood Primary Care Unavailable DR DELROY MOSQUEDA DO Attending Unavailable SHYLA GERMAN, DR SHARRON Atwood Primary Care Unavailable Sharron Mansfield MD Primary Care Provider Allergies Allergy Classification Reported Allergen(s) Allergy Type Date of Onset Reaction(s) Facility (1 source) adalimumab; Translations: [HUMIRA] Drug Allergy [facility] Repository (1 source) prasugrel; Translations: [EFFIENT] Drug Allergy [facility] Repository Medications Current Medications Medication Drug Class(es) Dates Sig (Normalized) Sig (Original) 1 ml abatacept 125 mg/ml prefilled syringe (13 sources) Selective T Cell Costimulation Modulator Start: 08-01-2018 Orencia Prefilled Syringe 125 mg/mL subcutaneous solution Dose : 125 mg =, Subcutaneous, , 0 Refill(s) Start Date: 08/01/18 Status: Ordered Completed/Discontinued Medications Medication Drug Class(es) Dates Sig (Normalized) Sig (Original) atorvastatin 80 mg oral tablet (6 sources) HMG-CoA Reductase Inhibitor Start: 09-19-2017 take 1 tablet by mouth once daily at bedtime atorvastatin (LIPITOR) 80 mg tablet Take 80 mg by mouth daily at bedtime. 3 02/19/2019 Active Problems Active Problems Problem Classification Problem Date Documented Date Episodic/Chronic Anxiety disorders (1 source) Anxiety disorder, unspecified; Translations: [ANXIETY DISORDER UNSPECI] Onset: 03-20-2017 Chronic Coronary atherosclerosis and other heart disease (9 sources) Atherosclerotic heart disease of [place] coronary artery without angina pectoris; Translations: [Coronary atherosclerosis] Onset: 03-30-2016 03-30-2016 Chronic Disorders of lipid metabolism (9 sources) Hyperlipidemia; Translations: [Hyperlipidemia, unspecified] Onset: 09-16-2014 09-16-2014 Chronic Esophageal disorders (1 source) Gastro-esophageal reflux disease without esophagitis; Translations: [GERD WITHOUT ESOPHAGITIS] Onset: 03-20-2017 Chronic Essential hypertension (9 sources) Hypertensive disorder; Translations: [Essential (primary) hypertension] Onset: 09-16-2014 09-16-2014 Chronic Mood disorders (1 source) Major depressive disorder, single episode, unspecified; Translations: [BART DEPRESS D/O SINGLE E] Onset: 03-20-2017 Osteoarthritis (1 source) Osteoarthritis of knee; Translations: [Unilateral primary osteoarthritis, right knee] Chronic Other acquired deformities (2 sources) Acquired genu varum; Translations: [Varus deformity, not elsewhere classified, right knee] Episodic Other aftercare (1 source) Aftercare following joint replacement surgery; Translations: [Aftercare following joint replacement surgery] Chronic Other circulatory disease (1 source) H/O: artificial organ/tissue; Translations: [Presence of other vascular implants and grafts] Chronic Other connective tissue disease (1 source) Artificial knee joint present; Translations: [Presence of right artificial knee joint] Chronic Other connective tissue disease (1 source) Disorder of soft tissue; Translations: [Other specified soft tissue disorders] Episodic Other connective tissue disease (1 source) Musculoskeletal symptom; Translations: [Other symptoms and signs involving the musculoskeletal system] Episodic Other nervous system disorders (1 source) Walking disability; Translations: [Difficulty in walking, not elsewhere classified] Chronic Other non-traumatic joint disorders (1 source) Pain in right knee; Translations: [Pain of right knee joint] Episodic Other nutritional; endocrine; and metabolic disorders (20 sources) Body mass index (BMI) 32.0-32.9, adult; Translations: [Body mass index (BMI) 30.0-30.9, adult] Onset: 09-17-2014 Resolved: 01-15-2017 03-31-2015 Chronic Other nutritional; endocrine; and metabolic disorders (8 sources) Body mass index (BMI) 31.0-31.9, adult; Translations: [Body mass index (BMI) 31.0-31.9, adult] Onset: 09-17-2014 Resolved: 01-15-2017 09-29-2015 Chronic Other nutritional; endocrine; and metabolic disorders (2 sources) Body mass index (BMI) 30.0-30.9, adult; Translations: [Body mass index (BMI) 30.0-30.9, adult] Onset: 01-15-2017 01-15-2017 Chronic Other screening for suspected conditions (not mental disorders or infectious disease) (3 sources) Encounter for screening mammogram for malignant neoplasm of breast; Translations: [Patient encounter status] Onset: 07-14-2022 07-14-2022 Episodic Rheumatoid arthritis and related disease (1 source) Rheumatoid arthritis, unspecified; Translations: [RHEUMATOID ARTHRITIS UNS] Onset: 03-20-2017 Chronic Unclassified (5 sources) Percutaneous transluminal coronary angioplasty ; Translations: [Coronary angioplasty status] Onset: 09-16-2014 09-16-2014 Unclassified (6 sources) Long-term drug therapy; Translations: [Other custodial (current) drug therapy] Onset: 09-18-2014 Resolved: 04-01-2015 04-01-2015 Past or Other Problems Problem Classification Problem Date Documented Da te Episodic/Chronic Coronary atherosclerosis and other heart disease (1 source) Presence of coronary angioplasty implant and graft; Translations: [PRESENCE COR ANGPLSTY IM] Onset: 03-20-2017 Episodic Nonmalignant breast conditions (5 sources) Hypertrophy of breast; Translations: [Fat necrosis of breast] Onset: 01-12-2017 11-07-2017 Episodic Nonspecific chest pain (7 sources) Chest pain, unspecified; Translations: [Chest pain, unspecified] Onset: 09-16-2014 09-16-2014 Episodic Other aftercare (15 sources) Long-term (current) use of other medications; Translations: [Other custodial (current) drug therapy] Onset: 09-18-2014 Resolved: 04-01-2015 04-01-2015 Episodic Other aftercare (1 source) Postoperative visit; Translations: [Encounter for other specified surgical aftercare] Onset: 09-19-2017 09-19-2017 Episodic Other bone disease and musculoskeletal deformities (2 sources) Osteopenia; Translations: [Other specified disorders of bone density and structure, unspecified site] Onset: 03-26-2018 03-26-2018 Episodic Residual codes; unclassified (2 sources) Family history of ischemic heart disease; Translations: [Family history of ischemic heart disease and other diseases of the circulatory system] Onset: 09-16-2014 09-16-2014 Episodic Screening or history of mental health and substance abuse (1 source) Personal history of nicotine dependence; Translations: [PERSONAL HISTORY OF SHAKIR] Onset: 03-20-2017 Episodic Unclassified (12 sources) FH: Raised blood lipids; Translations: [Family history of ischemic heart disease] Onset: 09-16-2014 11-05-2015 Episodic Unclassified (1 source) Problem Results Test Name Value Interpretation Reference Range Facil ity Vital Signs Date Time Vital Sign Value Performing Clinician Facility 01-18-2017 09:04-0400 Heart rate 72 /min Deepak Verduzco [facility] Work Phone: 01-15-2017 11:58-0400 BMI (Body Mass Index) 30.82 kg/m2 Brad Rivera MD [facility] Work Phone: 01-15-2017 11:58-0400 BP Diastolic 82 mm[Hg] Brad Rivera MD [facility] Work Phone: 01-15-2017 11:58-0400 BP Systolic 128 mm[Hg] Brad Rivera MD [facility] Work Phone: 01-15-2017 11:58-0400 Height 167.64 cm Brad Rivera MD [facility] Work Phone: 01-15-2017 11:58-0400 Pulse (Heart Rate) 64 /min [facility] Work Phone: 01-15-2017 11:58-0400 Respiratory Rate 16 /min Brad Rivera MD [facility] Work Phone: 01-15-2017 11:58-0400 Weight 86.64 kg Brad Rivera MD [facility] Work Phone: 03-30-2016 15:50-0400 BSA (Body Surface Area) 1.98 m2 Brad Rivera MD [facility] Work Phone: 11-05-2015 16:14-0400 Heart rate 68 /min Daisha Cazares RN [facility] Work Phone: 09-17-2014 14:58-0500 Height 167.64 cm Brad Rivera MD [facility] Work Phone: NEGATED: Highlighted [id number] 11:30-0500 BMI (Body Mass Index) 32.72 kg/m2 Kristen Arevalo RN [facility] Work Phone: NEGATED: Highlighted [id number] 11:30-0500 BP Diastolic 81 mm[Hg] Kristen Arevalo RN [facility] Work Phone: NEGATED: Highlighted [id number] 11:30-0500 BP Systolic 123 mm[Hg] Kristen Arevalo RN [facility] Work Phone: NEGATED: Highlighted [id number] 11:30-0500 Height 167.64 cm Kristen Arevalo RN [facility] Work Phone: NEGATED: Highlighted [id number] 11:30-0500 Height 168 cm Kristen Arevalo RN [facility] Work Phone: NEGATED: Highlighted [id number] 11:30-0500 Pulse (Heart Rate) 80 /min Kristen Arevalo RN [facility] Work Phone: NEGATED: Highlighted [id number] 11:30-0500 Weight 91.63 kg Kristen Arevalo RN [facility] Work Phone: NEGATED: Highlighted [id number] 11:30-0500 Weight 92 kg Kristen Arevalo RN [facility] Work Phone: Encounters Encounter Date Encounter Type Care Provider Facility Start: 07-04-2023 Orders Only Camila higgins MD Work Phone: Appointment Center Procedures Date Procedure Procedure Detail Performing Clinician Start: 07-14-2022 Screening mammograph y bi 2-view breast inc cad Camila De Paz MD Work Phone: Start: 08-06-2018 Acquired trigger fin carolin (disorder) DR DELROY MOSQUEDA DO Plan of Treatment Date Care Activity Detail Author Start: 07-14-2023 Mammography Mammogram Screening [facility] Start: 07-14-2023 Screening for malignant neoplasm of breast Mammogram Screening [facility] Start: 03-30-2023 Covid-19 Vaccine ( season) Covid-19 Vaccine ( season) [facility] Start: 03-30-2023 Influenza vaccination Influenza Vaccine (#1) [facility] Start: 07-30-2022 Advance Directive Discussion Advance Directive Discussion [facility] Start: 07-30-2022 Depression Assessment Depression Assessment [facility] Start: 08-25-2021 Lipid 1996 panel - Serum or Plasma Lipid Screening [facility] Start: 08-25-2021 Lipid panel Lipid Screening [facility] Start: 09-11-2018 End: 09-11-2018 Appointment Appointment [facility] Work Phone: Start: 08-17-2017 End: 02-27-2017 *Hepatic Function Panel *Hepatic Function Panel [facility] Work Phone: Start: 08-17-2017 End: 02-27-2017 Lipid 1996 panel *Lipid Profile CC PCP [facility] Work Phone: Start: 01-18-2017 End: 01-18-2017 Appointment Appointment [facility] Work Phone: Start: 01-18-2017 End: 01-19-2017 Echocardiography Echocardiogram (complete) [facility] Work Phone: Start: 01-18-2017 End: 01-18-2017 Electrocardiogram, complete EKG (In office) [facility] Work Phone: Start: 01-18-2017 End: 01-19-2017 Nuclear stress test -exercise Nuclear stress test -exercise [facility] Work Phone: Start: 01-15-2017 End: 01-15-2017 Follow Up Appt 6 months Follow Up Appt 6 months [employer] [facility] [facility] Work Phone: Start: 01-15-2017 End: 01-19-2017 Follow Up Appt Other Follow Up Appt Other [facility] Work Phone: Start: 01-15-2017 End: 01-15-2017 MMM MMM [facility] Work Phone: Start: 08-25-2016 End: 02-14-2017 *Hepatic Function Panel *Hepatic Function Panel [facility] Work Phone: Start: 08-25-2016 End: 02-14-2017 Lipid panel [AGGREGATE] *Lipid Profile CC PCP [facility] Work Phone: Start: 03-30-2016 End: 03-30-2016 Follow Up Appt 6 months Follow Up Appt 6 months [facility] Work Phone: Start: 03-30-2016 End: 03-30-2016 PFM PFM [facility] Work Phone: Start: 01-27-2016 End: 02-23-2016 *Hepatic Function Panel *Hepatic Function Panel [facility] Work Phone: Start: 01-27-2016 End: 02-23-2016 Lipid panel [AGGREGATE] *Lipid Profile CC PCP [facility] Work Phone: Start: 11-05-2015 End: 11-08-2015 Follow Up Appt 6 months Follow Up Appt 6 months [facility] Work Phone: Start: 11-05-2015 End: 11-08-2015 Nuclear stress test -exercise Nuclear stress test -exercise [facility] Work Phone: Start: 11-05-2015 End: 11-08-2015 PFM PFM [facility] Work Phone: Start: 2015 RSV Vaccine (1 - 1-dose 60+ series) RSV Vaccine (1 - 1-dose 60+ series) [facility] Start: 09-29-2015 End: 10-27-2015 *Hepatic Function Panel *Hepatic Function Panel [facility] Work Phone: Start: 09-29-2015 End: 11-08-2015 Follow Up Appt 6 months Follow Up Appt 6 months [facility] Work Phone: Start: 09-29-2015 End: 10-27-2015 Lipid panel [AGGREGATE] *Lipid Profile CC PCP [facility] Work Phone: Start: 09-29-2015 End: 11-08-2015 MMM MMM [facility] Work Phone: Start: 03-31-2015 End: 03-31-2015 Follow Up Appt 6 months Follow Up Appt 6 months [facility] Work Phone: Start: 03-31-2015 End: 03-31-2015 PFM PFM [facility] Work Phone: Start: 03-18-2015 End: 04-01-2015 *Hepatic Function Panel *Hepatic Function Panel [facility] Work Phone: Start: 03-18-2015 End: 04-01-2015 Lipid panel [AGGREGATE] *Lipid Profile CC PCP [facility] Work Phone: Start: 09-17-2014 End: 09-17-2014 Electrocardiogram, complete EKG (In office) [facility] Work Phone: Start: 09-17-2014 End: 09-17-2014 Follow Up Appt 6 months Follow Up Appt 6 months [facility] Work Phone: Start: 09-17-2014 End: 09-17-2014 PFM PFM [facility] Work Phone: Start: 02-27-2010 Diabetes Screening Diabetes Screening [facility] Start: 10-30-2000 Cologuard (FIT-DNA) Cologuard (FIT-DNA) [facility] Start: 10-30-2000 Colonoscopy Colonoscopy [facility] Start: 10-30-2000 Colorectal Cancer Screening Colorectal Cancer Screening [facility] Start: 10-30-[address] Colonography [facility] Start: 10-30-2000 Fecal Occult Blood Fecal Occult Blood [facility] Start: 10-30-2000 Screening for malignant neoplasm of colon [facility] Start: 10-30-2000 Sigmoidoscopy Sigmoidoscopy [facility] Start: 10-30-1974 Shingrix Vaccine (1 of 2) Shingrix Vaccine (1 of 2) [facility] Start: 10-30-1974 Urine microalbumin profile DTaP,Tdap,Td Vaccine (1 - Tdap) [facility] Start: 10-30-1973 Hepatitis C Screening Hepatitis C Screening [facility] Start: 10-30-1973 Hepatitis C screening Hepatitis C Screening [facility] Start: 10-30-1961 Pneumococcal Vaccine: 65+ (1 - PCV) Pneumococcal Vaccine: 65+ (1 - PCV) [facility] End: 08-02-2024 MARILYN SCREENING MARILYN SCREENING Radiology Routine Encounter for screening mammogram for malignant neoplasm of breast 1 Occurrences starting 07/10/2023 until 08/02/2024 [facility] Work Phone: Immunizations Immunization Date Immunization Notes Care Provider Fa cility 05-31-2022 influenza virus vaccine, unspecified formulation Screen [facility] 11-03-2020 COVID-19, mRNA, LNP- S, PF, 100 mcg or 50 mcg dose; Translations: [Moderna COVID-19 Vaccine] DR DELROY MOSQUEDA DO [facility] 10-06-2020 COVID-19, mRNA, LNP- S, PF, 100 mcg or 50 mcg dose; Translations: [Moderna COVID-19 Vaccine] DR DELROY MOSQUEDA DO [facility] 04-15-2019 influenza, injectabl e, quadrivalent, contains preservative Screen [facility] No information available. Kristen Arevalo RN [facility] Work Phone: Payers Date Payer Category Payer Medicare [id number] 2020 Medicare [id number] 2020 Medicare MEDICARE MEDICAR E A AND B [id number] 2020-Present [phone] [address] [address] [place] [address] Medicare [id number] 2020 Unknown YURYEM ANTHEM ME DICARE SUPPLEMENT [id number] 2020-Present [phone] [address] [place] [address] Indemnity [id number] 1955 Unknown [id number] 1955 Unknown [id number] 1955 Unknown [id number] Unknown [id number] Social History Date Type Detail Facility Start: 09-11-2018 End: 09-11-2018 Assertion Unknown if ever smoked [facility] Work Phone: Start: 01-05-2012 End: 08-01-2018 Tobacco smoking status Ex-smoker (finding) [facility] Sex Assigned At Sex [facility] End: 01-28-2008 History of tobacco use Current smoker [facility] Work Phone: End: 01-28-2008 History of tobacco use Cigarette Smoker [facility] Work Phone: Start: 01-05-2012 End: 07-05-2020 Cigarettes smoked current (pack per day) - Reported 0.5 [facility] Start: 01-05-2012 Tobacco use and exposure Smokeless tobacco non-user [facility] Work Phone: Start: 07-13-2021 Alcohol intake Current drinke r of alcohol (finding) [facility] Start: 07-05-2020 End: 07-13-2021 Tobacco use panel [facility] National Score (1-10 0), lower number is lower risk Not on file [facility] Start: 1955 Sex Assigned At Not on file [facility] Functional Status Date Assessment Result Facility 11-15-2022 Functional Status Objective: Observation: Pt with dressing over incision with no abnormal signs present. Palpation: Pt with slight tenderness globally surrounding R knee. Swelling: R knee: 2 in. above mid patella: 48 cm, mid-patella: 46.5 cm, 2 in. below mid patella: 40.5; L knee: 2 in. above mid patella: 44 cm, mid-patella: 40 cm, 2 in. below mid patella:41 cm AROM right knee flexion [68 deg], extension [-15 deg] PROM right knee flexion [71 deg], extension [-13 deg] Right hip strength flexion [2+/5], abduction [4-/5], adduction [4+/5], extension [4+/5], knee flexion [2+/5], knee extension [2+/5], ankle DF [4+/5], PF [2/5] Left hip strength flexion [5/5], abduction [5/5], adduction [5/5], extension [5/5], knee flexion [5/5], knee extension [5/5], ankle DF [5/5], PF [5/5] Tandem stance on left [0 seconds], right [8 seconds] SLS on left [2 seconds], right [NT due to pain] Transfers: Pt requiring increased height of chair in order to safely perform transfer independently. Pt performing transfers with FWW. Gait- Pt ambulating with FWW at eval with antalgic gait pattern with decreased R knee flexion throughout swing phase. Stairs- Pt requiring SBA with stairs with step-to pattern. Pt currently using FWW with 2 steps to enter home. [facility] Progress note 07-14-2022 Note Date & Type Note Facility 07-14-2022 Note HNO ID: [id number] Author: RT Marty(R) Service: ? Author Type: Technologist Type: Progress Notes Filed: 07/14/2022 1:06 PM Note Text: Radiology Service Progress Note PATIENT NAME: Stacey Wylie DATE OF SERVICE: July 14, 2022 TIME: 1:06 PM PATIENT IDENTITY VERIFICATION COMPLETED USING TWO (2) IDENTIFIERS: Name and Date of confirmed by patient verbally. FALL SCREENING: Has the patient had 2 falls in the last year or 1 fall with injury or currently using an Ambulatory Assistive Device (Walker, Cane, Wheelchair, Crutches, etc.)? No PATIENT GENDER DATA: Female. status: : No status: NO. PATIENT RELEVANT IMPLANT DATA REVIEWED: Not Applicable RADIOLOGY DEPARTMENT: Mammography PERIPHERAL IV DATA: Not applicable SIGNED BY: RT Marty(R) July 14, 2022 1:06 PM [facility] History of Present illness Narrative 07-14-2022 Maritza Hankins RT(R) - 07/14/2022 12:50 PM EST Note Date & Type Note Facility 07-14-2022 History of Presen t illness Narrative Radiology Service Progress Note PATIENT NAME: Stacey Wylie DATE OF SERVICE: July 14, 2022 TIME: 1:06 PM PATIENT IDENTITY VERIFICATION COMPLETED USING TWO (2) IDENTIFIERS: Name and Date of confirmed by patient verbally. FALL SCREENING: Has the patient had 2 falls in the last year or 1 fall with injury or currently using an Ambulatory Assistive Device (Walker, Cane, Wheelchair, Crutches, etc.)? No PATIENT GENDER DATA: Female. status: : No status: NO. PATIENT RELEVANT IMPLANT DATA REVIEWED: Not Applicable RADIOLOGY DEPARTMENT: Mammography PERIPHERAL IV DATA: Not applicable SIGNED BY: Maritza Hankins RT(R) July 14, 2022 1:06 PM documented in this encounter [facility] Evaluation + Plan note Note Date & Type Note Facility Evaluation + Plan note No data available for this section [facility] Evaluation note Note Date & Type Note Facility documented in this encounter [facility] Evaluation note Note Date & Type Note Facility documented in this encounter [facility] Hospital Discharge instructions Note Date & Type Note Facility Hospital Discharge instructions No data available for this section [facility] Progress note Note Date & Type Note Facility Progress note No data available for this section [facility] Reason for referral (narrative) Diagnostic Procedure Only (Routine) - Closed Note Date & Type Note Facility Referral ID Status Reason Start Date Expiration Date V isits Requested Visits Authorized [id number] Closed Auto-Generate d Referral 07/13/2021 08/12/2022 1 1 [facility] Reason for referral (narrative) Diagnostic Procedure Only (Routine) - Pending Review Note Date & Type Note Facility Referral ID Status Reason Start Date Expiration Date Visits Requested Visits Authorized [id number] Pending Review Auto-Generat ed Referral 08/02/2024 1 1 [facility] Reason for visit Narrative Diagnostic Procedure Only (Routine) - Closed Note Date & Type Note Facility Referral ID Status Reason Start Date Expiration Date V isits Requested Visits Authorized [id number] Closed Auto-Generate d Referral 07/13/2021 08/12/2022 1 1 [facility] Summary Purpose Family History No Family History Records FoundNo Family History Records FoundThere may be information available, but it has not been provided by the sender.No Family History Records FoundNo Family History Records Found Advance Directives No Advanced Directives Records FoundNo Advanced Directives Records FoundThere may be information available, but it has not been provided by the sender.No Advanced Directives Records FoundNo Advanced Directives Records Found Chief Complaint Chief Complaint Description Start Date p/o post excision fat necros is right nipple areola on 11/01/2017 Preliminary chief co mplaint data, not yet signed by the author as of Instructions Instruction Description Start Date CompletedPatient advised to follow-up with Primary Care Physician for BMI management. Assessments There may be information available, but it has not been provided by the sender. Review of System There may be information available, but it has not been provided by the sender. History of Present Illness There may be information available, but it has not been provided by the sender. Additional Source Comments INFORMATION SOURCE (unrecogn ized section and content) DATE CREATED AUTHOR AUTHOR'S ORGANIZ ATION 01/23/2018 [facility] DATE CREATED AUTHOR AUTHOR'S ORGANIZ ATION 07/21/2022 [facility] DATE CREATED AUTHOR AUTHOR'S ORGANIZ ATION 01/05/2023 [facility] ([place]) Reason for Visit (unrecogniz ed section and content) Patient Care team informatio n (unrecognized section and content) Source Comments (unrecognize d section and content) In the event this informatio n is protected by the Federal Confidentiality of Alcohol and Drug Abuse Patient Records regulations: The Federal rules restrict any use of the information to criminally investigate or prosecute any alcohol or drug abuse patient.[facility] the event this information is protected by the Federal Confidentiality of Alcohol and Drug Abuse Patient Records regulations: The Federal rules restrict any use of the information to criminally investigate or prosecute any alcohol or drug abuse patient.[facility] FOR RECORDS PERTAINING TO PATIENTS WHO ARE OR HAVE BEEN ENROLLED IN A CHEMICAL DEPENDENCY/SUBSTANCEABUSE PROGRAM, SOME INFORMATION MAY BE OMITTED. This clinical summary was aggregated from multiple sources. Caution should be exercised in using it in the provision of clinical care. This summary normalizes information from multiple sources, and as a consequence, information in this document may materially change the coding, format and clinical context of patient data. In addition, data may be omitted in some cases. CLINICAL DECISIONS SHOULD BE BASED ON THE PRIMARY CLINICAL RECORDS. [facility]. provides no warranty or guarantee of the accuracy or completeness of information in this document.
== END | disposition home or self-care (01) ==
LOC: CVS 09:49
PROVIDERS: PCP Internal Medicine; Referring Provider Physician Assistant Medical; Visit Provider Physician Assistant Medical
DX: H34.231 Retinal artery branch occlusion, right eye (principal); I25.10 Atherosclerotic heart disease of native coronary artery without angina pectoris
CPT/HCPCS: 93306; 93880; Q9957; A4216; C8929

== ENCOUNTER → 2023-09-05 | Outpatient (CLI) | payer MEDICARE, BC, SELFPAY ==
--- NOTE | 2023-09-05 12:46 | CT_ITS ---
INDICATION: R ICA stenosis, R eye vision changes EXAMINATION: CT BRAIN WITHOUT CONTRAST, CTA HEAD, AND CTA NECK TECHNIQUE: Noncontrast axial images were obtained of the brain. Subsequently, routine carotid CT angiogram protocol was performed without and with IV contrast. In addition, images were obtained of the [place]. NASCET criteria using the distal ICAs for comparison were used for evaluation of stenoses. 3D reconstructions were reviewed. A radiation dose optimization technique was used for this scan. IV Contrast dosage and agent: 100 cc of Isovue-370. COMPARISON: No relevant prior comparison study available FINDINGS: --CT BRAIN WITHOUT CONTRAST: BRAIN PARENCHYMA: No intra- or extra-axial hemorrhage. No evidence of acute infarct. No intracranial mass or mass effect. There is preservation of the means/white matter interface. Periventricular deep white matter changes likely due to chronic microvascular disease. Posterior fossa structures are unremarkable. CSF SPACES: Appropriate for age. No hydrocephalus. Basal cisterns are patent. CALVARIUM, SKULL BASE, PARANASAL SINUSES AND MASTOID AIR CELLS: Clear. No discrete lytic or blastic abnormalities. ASPECTS Score for Acute Strokes: 10 --CTA NECK: AORTIC ARCH AND BRANCHES: Aberrant right subclavian artery. Mild atherosclerotic calcifications of the aortic arch. RIGHT CCA: There are sclerotic calcifications and soft plaques in the right bulb region extending to the origin of the right internal carotid artery RIGHT ICA: Atherosclerotic calcifications with soft plaques is approximately 60% stenosis of the origin of the right internal carotid artery. The distal right internal carotid arteries are unremarkable. The right external carotid artery is unremarkable. LEFT CCA: [The left bulb region and proximal to the bifurcation with approximately 50% stenosis. LEFT ICA: Minimal narrowing at the origin of the left internal carotid artery. The distal left internal carotid arteries are unremarkable. The left external carotid artery is patent. RIGHT VERTEBRAL ARTERY: No occlusion, significant stenosis or dissection. LEFT VERTEBRAL ARTERY: No occlusion, significant stenosis or dissection. NECK SOFT TISSUES: Unremarkable. --CTA HEAD: --Anterior circulation: ICAs: No significant stenosis at the intracranial/visualized segments. ACAs: No significant stenosis at the visualized segments. ACOM: Not visualized. MCAs: No significant stenosis at the visualized segments. --Posterior circulation: PCOMs: Not visualized bilaterally. test facility engineer: No significant stenosis at the visualized segments. BASILAR ARTERY: No significant stenosis. VERTEBRAL ARTERIES: Atherosclerotic calcifications of the V4 segments of the vertebral arteries with mild stenosis. No evidence of intracranial aneurysm or vascular malformation. CT/CTA Head AND Neck W/ Contrast IMPRESSION: 1. No intracranial great vessel significant stenosis. 2. Atherosclerotic calcifications in the right bulb region extending to the proximal right internal carotid artery associated with approximately 60% stenosis. 3. Mild stenosis approximately 50% of the left bulb region. 4. Patent bilateral vertebral arteries with atherosclerotic calcifications in the intracranial portions. Electronically Signed: Mario Rolon MD at 14:08 EST ,
[2023-09-05 13:12] LABS: CREATININE FINGERSTICK < 1.0 mg/dL (0.55-1.02); EGFR FINGERSTICK > 60.0000 mL/min (>60)
== END | disposition home or self-care (01) ==
LOC: CT 12:46
PROVIDERS: PCP Internal Medicine; Referring Provider Physician Assistant; Visit Provider Physician Assistant
DX: I65.21 Occlusion and stenosis of right carotid artery (principal)
CPT/HCPCS: 70496; 70498; Q9967

== ENCOUNTER 2023-10-02 05:23 | Inpatient (IN) | payer MEDICARE, BC, SELFPAY ==
--- NOTE | 2023-09-27 11:54 | EKG12_ITS ---
Test Reason : PRE OP Blood Pressure : / mmHG Vent. Rate : 064 BPM Atrial Rate : 064 BPM P-R Int : 156 ms QRS Dur : 068 ms QT Int : 402 ms P-R-T Axes : 018 013 034 degrees QTc Int : 414 ms Normal sinus rhythm Septal infarct , age undetermined Abnormal ECG is now Confirmed by LJ GERMAN, SHENG ([id number]), newspaper or periodical editor DELIO ALLEN ([id number]) on 10/01/2023 6:52:45 AM Referred By: Dominik Sparrow Confirmed By:LAMINE CALHOUN MD
[2023-09-27 13:17] LABS: Absolute Lymphocyte Count 1.74 X10^3/uL (0.83-4.51); Absolute Neutrophil Count 7.9 X10^3/uL (2.0-7.7); Basophil# 0.07 X10^3/uL; Basophil% 0.7 % (0-1); Eosinophil# 0.16 X10^3/uL; Eosinophils% 1.5 % (0-5); Hematocrit 44.3 % (37-47); Hemoglobin 15.2 g/dL (12.0-15.0); Lymphocyte # 1.74 X10^3/ul (0.83-4.51); Lymphocyte % 16.4 % (19-41); Mean Corp Hgb Conc 34.3 g/dL (32-36); Mean Corpuscular Hgb 32.8 pg (27.0-32.0); Mean Corpuscular Volume 95.7 fL (81-99); Mean Platelet Vol. 8.7 fl (6.2-12.0); Monocyte# 0.74 X10^3/uL; NRBC Flagged by Analyzer 0 % (0-5); Neutrophil % 74.1 % (47-70); Platelet Count 228 K/mm3 (150-450); RBC Distribution Width CV 11.9 % (11.6-14.6); RBC Distribution Width SD 40.8 fl (35.1-43.9); Red Blood Count 4.63 M/mm3 (4.2-5.4); White Blood Count 10.6 K/mm3 (4.4-11.0)
[2023-09-27 13:48] LABS: AST(SGOT) 29 U/L (15-37); Alanine Aminotransfer ALT/SGPT 44 U/L (13-56); Albumin, Serum 3.7 g/dL (3.2-5.0); Alkaline Phosphatase 94 U/L (45-117); Anion Gap 3 (5-15); BUN 16 mg/dL (7-18); Calcium,Total 10.1 mg/dL (8.5-10.1); Chloride 106 mmol/L (98-107); Creatinine, Serum 0.67 mg/dL (0.55-1.02); EST Glomerular Filtration Rate 94 mL/min (>60); Est Glom Filt Rate - Afr Amer 113 mL/min (>60); Globulin 3.8 g/dL (2.2-4.2); Glucose 86 mg/dL (74-106); Potassium 4.3 mmol/L (3.5-5.1); Protein, Total 7.5 g/dL (6.4-8.2); Sodium Level 137 mmol/L (136-145)
[2023-10-02] VITALS (21 sets, daily range): BP systolic 82–137; BP diastolic 35–64; PULSE 52–88; RESP 16–20; TEMP 36.2–36.8; O2SAT 91–100; BMI 34.4; BMI 34.3
--- OUTSIDE RECORDS SUMMARY | 2023-10-02 05:27 | XMS RPT_ITS | CCD ---
Author Name Unknown Address [address] [place] [place] [address] Organization [facility] Care Team Providers Care Airplane Pilot Name Role Phone Miguel GERMAN, Brad Christianson Unavailable Jenny Bueno Unavailable Unavailable Sage BAHENA, Daisha Cook Unavailable [phone] JEISON ANTUNEZ Unavailable Unavailable JEISON ANTUNEZ Unavailable Unavailable NO REFERRING DR Cutler Unavailable JEISON ANTUNEZ Unavailable Unavailable JEISON ANTUNEZ Unavailable Unavailab JEISON Lopes Unavailable Unavailab dannielle Antunez MD, Jeison Kelly Unavailable Sage BAHENA, Daisha Cook Unavailable Deepak Verduzco Unavailable Unavailable SHARRON MANSFIELD Primary Care Unavailable CAMILA DE PAZ Referring Unavailable SHYLA GERMAN, DR SHARRON Atwood Primary Care Physician SHYLA GERMAN, DR SHARRON Atwood Primary Care Unavailable KYLER GONCALVES Attending UnavailKYLER Gupta Referring UnavailDR DELROY Brown DO Attending Omayra MANSFIELD MD, DR SHARRON Atwood Primary Care Unavailable DR DELROY MOSQUEDA DO Attending Unavailable SHYLA GERMAN, DR SHARRON Atwood Primary Care Unavailable Sharron Mansfield MD Primary Care Provider [phone] Allergies Allergy Classification Reported Allergen(s) Allergy Type Date of Onset Reaction(s) Facility (1 source) adalimumab; Translations: [HUMIRA] Drug Allergy [facility] Repository (1 source) prasugrel; Translations: [EFFIENT] Drug Allergy [facility] Repository Medications Current Medications Medication Drug [...] disease (9 sources) Atherosclerotic heart disease of [place] coronary artery without angina pectoris; Translations: [Coronary [...] (6 sources) Long-term drug therapy; Translations: [Other intermediate (current) drug therapy] Onset: 09-18-2014 Resolved: 04-01-2015 [...] (current) use of other medications; Translations: [Other intermediate (current) drug therapy] Onset: 09-18-2014 Resolved: 04-01-2015 [...] 09:04-0400 Heart rate 72 /min Deepak Verduzco [facility] Work Phone: 01-15-2017 11:58-0400 BMI (Body Mass Index) 30.82 kg/m2 Brad Rivera MD [employer] Work Phone: 01-15-2017 11:58-0400 BP Diastolic 82 mm[Hg] Brad Rivera MD [facility] Work Phone: 01-15-2017 11:58-0400 BP Systolic 128 mm[Hg] Brad Rivera MD [facility] [employer] [facility] Work Phone: 01-15-2017 11:58-0400 Height 167.64 cm Brad Rivera MD [facility] [employer] [facility] Work Phone: 01-15-2017 11:58-0400 Pulse (Heart Rate) 64 /min [facility] Work Phone: 01-15-2017 11:58-0400 Respiratory Rate 16 /min Brad Rivera MD [facility] Work Phone: 01-15-2017 11:58-0400 Weight 86.64 kg Brad Rivera MD [facility] Work Phone: 03-30-2016 15:50-0400 BSA (Body Surface Area) 1.98 m2 Brad Rivera MD [facility] Work Phone: 11-05-2015 16:14-0400 Heart rate 68 /min Daisha Cazares RN [facility] Work Phone: 09-17-2014 14:58-0500 Height 167.64 cm Brad Rivera MD [facility] Work Phone: NEGATED: Highlighted [id number] 11:30-0500 BMI (Body Mass Index) 32.72 kg/m2 Kristen Arevalo RN [facility] Work Phone: NEGATED: Highlighted [id number] 11:30-0500 BP Diastolic 81 mm[Hg] Kristen Arevalo RN [facility] Work Phone: NEGATED: Highlighted [id number] 11:30-0500 BP Systolic 123 mm[Hg] Kristen Arevalo RN [facility] Work Phone: NEGATED: Highlighted [id number] 11:30-0500 Height 167.64 cm Kristen Arevalo RN [facility] Work Phone: NEGATED: Highlighted [id number] 11:30-0500 Height 168 cm Kristen Arevalo RN [facility] Work Phone: NEGATED: Highlighted [id number] 11:30-0500 Pulse (Heart Rate) 80 /min Kristen Arevalo RN [facility] Work Phone: NEGATED: Highlighted [id number] 11:30-0500 Weight 91.63 kg Kristen Arevalo RN [facility] Work Phone: NEGATED: Highlighted [id number] 11:30-0500 Weight 92 kg Kristen Arevalo RN [facility] Work Phone: Encounters Encounter Date Encounter [...] Detail Author Start: 07-14-2023 Mammography Mammogram Screening [facility] Start: 07-14-2023 Screening for malignant neoplasm of breast Mammogram Screening [facility] Start: 03-30-2023 Covid-19 Vaccine ( season) Covid-19 Vaccine ( season) [facility] Start: 03-30-2023 Influenza vaccination Influenza Vaccine (#1) [facility] Start: 07-30-2022 Advance Directive Discussion Advance Directive Discussion [facility] Start: 07-30-2022 Depression Assessment Depression Assessment [facility] Start: 08-25-2021 Lipid 1996 panel - Serum or Plasma Lipid Screening [facility] Start: 08-25-2021 Lipid panel Lipid Screening [facility] Start: 09-11-2018 End: 09-11-2018 Appointment Appointment [facility] Work Phone: Start: 08-17-2017 End: 02-27-2017 *Hepatic Function Panel *Hepatic Function Panel [facility] Work Phone: Start: 08-17-2017 End: 02-27-2017 Lipid 1996 panel *Lipid Profile CC PCP [facility] Work Phone: Start: 01-18-2017 End: 01-18-2017 Appointment Appointment [facility] Work Phone: Start: 01-18-2017 End: 01-19-2017 Echocardiography Echocardiogram (complete) [facility] Work Phone: Start: 01-18-2017 End: 01-18-2017 Electrocardiogram, complete EKG (In office) [facility] Work Phone: Start: 01-18-2017 End: 01-19-2017 Nuclear stress test -exercise Nuclear stress test -exercise [facility] Work Phone: Start: 01-15-2017 End: 01-15-2017 Follow Up Appt 6 months Follow Up Appt 6 months [facility] Work Phone: Start: 01-15-2017 End: 01-19-2017 Follow Up Appt Other Follow Up Appt Other [employer] [facility] Work Phone: Start: 01-15-2017 End: 01-15-2017 MMM MMM [facility] Work Phone: Start: 08-25-2016 End: 02-14-2017 *Hepatic Function Panel *Hepatic Function Panel [employer] Work Phone: Start: 08-25-2016 End: 02-14-2017 Lipid panel [AGGREGATE] *Lipid Profile CC PCP [facility] Work Phone: Start: 03-30-2016 End: 03-30-2016 Follow Up Appt 6 months Follow Up Appt 6 months [facility] Work Phone: Start: 03-30-2016 End: 03-30-2016 PFM PFM [facility] Work Phone: Start: 01-27-2016 End: 02-23-2016 *Hepatic Function Panel *Hepatic Function Panel [facility] Work Phone: Start: 01-27-2016 End: 02-23-2016 Lipid panel [AGGREGATE] *Lipid Profile CC PCP [facility] Work Phone: Start: 11-05-2015 End: 11-08-2015 Follow Up Appt 6 months Follow Up Appt 6 months [facility] Work Phone: Start: 11-05-2015 End: 11-08-2015 Nuclear stress test -exercise Nuclear stress test -exercise [facility] Work Phone: Start: 11-05-2015 End: 11-08-2015 PFM PFM [facility] Work Phone: Start: 2015 RSV Vaccine (1 - 1-dose 60+ series) RSV Vaccine (1 - 1-dose 60+ series) [facility] Start: 09-29-2015 End: 10-27-2015 *Hepatic Function Panel *Hepatic Function Panel [facility] [employer] Work Phone: Start: 09-29-2015 End: 11-08-2015 Follow Up Appt 6 months Follow Up Appt 6 months [facility] Work Phone: Start: 09-29-2015 End: 10-27-2015 Lipid panel [AGGREGATE] *Lipid Profile CC PCP [facility] Work Phone: Start: 09-29-2015 End: 11-08-2015 MMM MMM [facility] Work Phone: Start: 03-31-2015 End: 03-31-2015 Follow Up Appt 6 months Follow Up Appt 6 months [facility] Work Phone: Start: 03-31-2015 End: 03-31-2015 PFM PFM [facility] Work Phone: Start: 03-18-2015 End: 04-01-2015 *Hepatic Function Panel *Hepatic Function Panel [facility] [employer] Work Phone: Start: 03-18-2015 End: 04-01-2015 Lipid panel [AGGREGATE] *Lipid Profile CC PCP [facility] Work Phone: Start: 09-17-2014 End: 09-17-2014 Electrocardiogram, complete EKG (In office) [facility] Work Phone: Start: 09-17-2014 End: 09-17-2014 Follow Up Appt 6 months Follow Up Appt 6 months [facility] [employer] Work Phone: Start: 09-17-2014 End: 09-17-2014 PFM PFM [facility] [employer] Work Phone: Start: 02-27-2010 Diabetes Screening Diabetes Screening [facility] Start: 10-30-2000 Cologuard (FIT-DNA) Cologuard (FIT-DNA) [facility] Start: 10-30-2000 Colonoscopy Colonoscopy [facility] Start: 10-30-2000 Colorectal Cancer Screening Colorectal Cancer Screening [facility] Start: 10-30-[address] Colonography [facility] Start: 10-30-2000 Fecal Occult Blood Fecal Occult Blood [facility] Start: 10-30-2000 Screening for malignant neoplasm of colon [facility] Start: 10-30-2000 Sigmoidoscopy Sigmoidoscopy [facility] Start: 10-30-1974 Shingrix Vaccine (1 of 2) Shingrix Vaccine (1 of 2) [facility] Start: 10-30-1974 Urine microalbumin profile DTaP,Tdap,Td Vaccine (1 - Tdap) [facility] Start: 10-30-1973 Hepatitis C Screening Hepatitis C Screening [facility] Start: 10-30-1973 Hepatitis C screening Hepatitis C Screening [facility] Start: 10-30-1961 Pneumococcal Vaccine: 65+ (1 - PCV) Pneumococcal Vaccine: 65+ (1 - PCV) [facility] End: 08-02-2024 MARILYN SCREENING MARILYN SCREENING Radiology Routine Encounter for screening mammogram for malignant neoplasm of breast 1 Occurrences starting 07/10/2023 until 08/02/2024 [facility] Work Phone: Immunizations Immunization Date Immunization Notes Care Provider Fa cility 05-31-2022 influenza virus vaccine, unspecified formulation Screen Wstr [facility] 11-03-2020 COVID-19, mRNA, LNP- S, PF, 100 mcg or 50 mcg dose; Translations: [Moderna COVID-19 Vaccine] DR DELROY MOSQUEDA DO [facility] 10-06-2020 COVID-19, mRNA, LNP- S, PF, 100 mcg or 50 mcg dose; Translations: [Moderna COVID-19 Vaccine] DR DELROY MOSQUEDA DO [facility] 04-15-2019 influenza, injectabl e, quadrivalent, contains preservative Screen Wstr [facility] No information available. Kristen Arevalo RN [facility] Work Phone: Payers Date Payer Category Payer Medicare [id number] 2020 Medicare [id number] 2020 Medicare MEDICARE MEDICAR E A AND B [id number] 2020-Present [phone] [address] [address] [place] [address] Medicare [id number] 2020 Unknown YURYEM ANTHEM ME DICARE SUPPLEMENT [id number] 2020-Present [phone] [address] [place] [address] Indemnity [id number] 1955 Unknown [id number] 1955 Unknown [id number] 1955 Unknown [id number] Unknown [id number] Social History Date Type Detail Facility Start: 09-11-2018 End: 09-11-2018 Assertion Unknown if ever smoked [facility] Work Phone: Start: 01-05-2012 End: 08-01-2018 Tobacco smoking status Ex-smoker (finding) [facility] Sex Assigned At Sex [facility] End: 01-28-2008 History of tobacco use Current smoker [facility] Work Phone: End: 01-28-2008 History of tobacco use Cigarette Smoker [facility] Work Phone: Start: 01-05-2012 End: 07-05-2020 Cigarettes smoked current (pack per day) - Reported 0.5 [facility] Start: 01-05-2012 Tobacco use and exposure Smokeless tobacco non-user [facility] Work Phone: Start: 07-13-2021 Alcohol intake Current drinke r of alcohol (finding) [facility] Start: 07-05-2020 End: 07-13-2021 Tobacco use panel [facility] National Score (1-10 0), lower number is lower risk Not on file [facility] Start: 1955 Sex Assigned At Not on file [facility] Functional Status Date Assessment Result Facility [...] FWW with 2 steps to enter home. [facility] Progress note 07-14-2022 Note Date & Type Note Facility 07-14-2022 Note HNO ID: [id number] Author: RT Marty(R) Service: ? Author Type: [...] RT Marty(R) July 14, 2022 1:[address] [facility] History of Present illness Narrative 07-14-2022 Maritza [...] 2022 1:06 PM documented in this encounter [facility] Evaluation + Plan note Note Date & Type Note Facility Evaluation + Plan note No data available for this section [facility] Evaluation note Note Date & Type Note Facility documented in this encounter [facility] Evaluation note Note Date & Type Note Facility documented in this encounter [facility] Hospital Discharge instructions Note Date & Type Note Facility Hospital Discharge instructions No data available for this section [facility] Progress note Note Date & Type Note Facility Progress note No data available for this section [facility] Reason for referral (narrative) Diagnostic Procedure Only (Routine) - Closed Note Date & Type Note Facility Referral ID Status Reason Start Date Expiration Date V isits Requested Visits Authorized [id number] Closed Auto-Generate d Referral 07/13/2021 08/12/2022 1 1 [facility] Reason for referral (narrative) Diagnostic Procedure Only (Routine) - Pending Review Note Date & Type Note Facility Referral ID Status Reason Start Date Expiration Date Visits Requested Visits Authorized [id number] Pending Review Auto-Generat ed Referral 08/02/2024 1 1 [facility] Reason for visit Narrative Diagnostic Procedure Only (Routine) - Closed Note Date & Type Note Facility Referral ID Status Reason Start Date Expiration Date V isits Requested Visits Authorized [id number] Closed Auto-Generate d Referral 07/13/2021 08/12/2022 1 1 [facility] Summary Purpose Family History No Family History [...] DATE CREATED AUTHOR AUTHOR'S ORGANIZ ATION 01/23/2018 [facility] DATE CREATED AUTHOR AUTHOR'S ORGANIZ ATION 07/21/2022 [facility] DATE CREATED AUTHOR AUTHOR'S ORGANIZ ATION 01/05/2023 [facility] ([place]) Reason for Visit (unrecogniz [...] or prosecute any alcohol or drug abuse patient.[facility] the event this information is protected by the Federal Confidentiality of Alcohol and Drug Abuse Patient Records regulations: The Federal rules restrict any use of the information to criminally investigate or prosecute any alcohol or drug abuse patient.[facility] FOR RECORDS PERTAINING TO PATIENTS WHO ARE [...] BE BASED ON THE PRIMARY CLINICAL RECORDS. [facility]. provides no warranty or guarantee of the accuracy or completeness of information in this document.
[2023-10-02] MEDS: Lactated Ringers 1,000 ML 15 ML IV (06:10)
--- NOTE | 2023-10-02 07:24 | PCM.HP.BLA ---
History and Physical Allergies No Known Allergies Allergy (Verified 09/13/23 15:59) Medications aspirin 81 mg chewable tablet 81 mg PO DAILY@0800 03/22/15 [History Confirmed 09/13/23] lactobacillus combination no.8 3 billion cell capsule (Adult Probiotic) 3,000 mmu cells PO QDAY 08/01/17 [History Confirmed 09/13/23] multivitamin (Daily Multi-Vitamin tablet) 1 tab PO QDAY 08/01/17 [History Confirmed 09/13/23] cholecalciferol (vitamin D3) 25 mcg (1,000 unit) tablet 25 mcg PO DAILY 06/15/21 [History Confirmed 09/13/23] abatacept (with maltose) 250 mg intravenous solution (Orencia (with maltose)) ml .Route 12/14/21 [History Confirmed 09/13/23] calcium citrate 315 mg-vitamin D3 5 mcg (200 unit) tablet (Calcium Citrate + D) 1 tab PO BID 12/14/21 [History Confirmed 09/13/23] nitroglycerin 0.4 mg sublingual tablet (Nitrostat) 0.4 mg sublingual Q5-15M PRN chest pain #25 tabs 03/23/22 [Rx Confirmed 09/13/23] lisinopril 2.5 mg tablet 2.5 mg PO DAILY #90 tabs 12/26/22 [Rx Confirmed 09/13/23] metoprolol tartrate 25 mg tablet 25 mg PO BID #180 tabs 12/26/22 [Rx Confirmed 09/13/23] blood pressure monitor #1 ea 04/27/23 [Rx Confirmed 09/13/23] blood pressure monitor #1 ea 04/27/23 [Rx Confirmed 09/13/23] atorvastatin 80 mg tablet 80 mg PO DAILY #90 tabs 08/23/23 [Rx Confirmed 09/13/23] citalopram 20 mg tablet 20 mg PO DAILY #90 tabs 08/23/23 [Rx Confirmed 09/13/23] clopidogrel 75 mg tablet 75 mg PO DAILY #90 tabs 08/23/23 [Rx Confirmed 09/13/23] ursodiol 300 mg capsule 300 mg PO BID #60 caps 09/13/23 [Rx Confirmed 09/13/23] vitamin E succinate 268 mg (400 unit) tablet 268 mg PO BID #60 tabs 09/13/23 [Rx Confirmed 09/13/23] [facility] Medical History BMI 33.0-33.9,adult Flu vaccine need GERD (gastroesophageal reflux disease) History of echocardiogram Osteoarthritis Preoperative evaluation to rule out surgical contraindication Right knee pain Surgical History History of left heart catheterization History of percutaneous transluminal coronary angioplasty (~01/08/12) History of total right knee replacement (~2022) Status post trigger finger release Family History Father CAD (coronary artery disease) Hx of CABGSister Hyperlipemia, mixed Social History Smoking Status: Former smoker quit date: 07/30/05 Tobacco: How many years used: 20 alcohol intake: current alcohol intake frequency: holidays/special occasions only Alcohol type: wine substance use type: does not use caffeine: Yes Type: coffee and tea what type of physical activity do you participate in: walking frequency: daily duration: 15-30 minutes/day seatbelt use: always do you feel safe at home: Yes HPI HPI HPI: SUNDAR DOWNEY, is a 67 F who presents to the office today for follow up of right ICA stenosis identified after 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 She had a duplex that revealed >70% stenosis and has now had CTA. She was on asa and statin prior to vision event, plavix was added and she is tolerating it without issues. ROS General General: Yes weight change; No appetite, fatigue, colon cancer, breast cancer or weakness HEENT HEENT: Yes eye surgery; No difficulty swallowing, eye injury, swollen glands or hoarseness Endo Endocrine: No thyroid disease, diabetes mellitus, thyroid cancer, Hair loss, heat intolerance or cold intolerance Skin Skin: No rash or changing moles Musc Musculoskeletal: Yes rheumatoid arthritis; No back problems, arthritis, gout or joint pain Cardio Cardiovascular: Yes heart disease; No murmur, pacemaker, atrial fibrillation, high blood pressure, heart attack, heart stent, palpitations, shortness of breat with exertion or chest pain Psych Psychiatric: Yes anxiety; No depression or hearing voices Resp Respiratory: No shortness of breath, No sleep apnea, No cough, No COPD, No asthma, No emphysema and No wheezing Gastro Gastrointestinal: No abdominal pain, No nausea or vomiting, Yes diarrhea, No constipation, No blood in stool, No acid reflux, No hemorrhoids, No ulcers, No gallbladder problem and No black,tarry stools Ankur Hematologic: Yes blood thinners, No blood disorders, No bleeding, No anemia and No blood clots Neuro Neurologic: No system reviewed and no additional complaints, except as documented, No as per HPI, No abnormal gait, No abnormal hearing, No abnormal movements, No abnormal speech, No behavioral changes, No burning sensations, No confusion, No convulsions, No disequilibrium, No dizziness, No localized weakness, No frequent falls, No headache(s), No lack of coordination, No loss of vision, No memory loss, No numbness, No other visual disturbances, No radicular pain, No restless legs, No sensory deficit, No syncope, No tingling, No tremor(s), No weakness and No other Exam Const General: cooperative, healthy appearing, comfortable, no acute distress and well developed Nutritional Appearance: well nourished Orientation: alert, awake and oriented x3 HENMT Head: normocephalic and atraumatic Ears: hearing grossly normal bilaterally Nose: external nose normal Eyes General: appearance normal, both eyes and all related structures EOM: EOM intact bilaterally Neck Neck: normal visual inspection, full ROM, no lymphadenopathy and trachea midline Thyroid: thyroid normal Lymphatic: no lymphadenopathy noted Resp Effort & Inspection: normal respiratory effort, able to speak in complete sentences, symmetric chest movement, no audible wheezes, not labored, no stridor and no use of accessory muscles Cardio Rate: regular rate Rhythm: regular rhythm Pulses: brachial pulses present and radial pulses present Skin General: no rashes or lesions noted and no erythema Wounds: no wounds Neuro Cranial Nerves: CN's II-XI intact bilaterally and EOM intact bilaterally Speech: speech normal Gait: normal gait Motor: strength 5/5 throughout Sensory Exam: no sensory deficits noted Psych Appearance: grossly normal and well kempt Mental Status: mental status grossly normal Mood: congruent mood Speech and Movement: speech and movement normal Thought Content: normal Judgment: judgment good Coding Level of Care Code Off vis,est,level 3 Diagnoses Stenosis of right internal carotid artery I65.21 Assessment and Plan Assessment and Plan (1) 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
--- NOTE | 2023-10-02 07:30 | PLAQ_PTH ---
PATHOLOGY RESULTS PATIENT: SUNDAR DOWNEY LOC: [facility] U#:[id number] AGE/SX: 67/F ROOM: [place] [id number] RE10/02/[address]: Dr. Dominik Sparrow MD : 1955 BED: 1 DIS: 10/03/2023 SPEC #: [id number] RECD: 10/02/23 13:12 STATUS: ZAIRA ZEB #: [id number] SARATH: 10/02/23 07:[address]: Dominik Sparrow DEPT: SURGICAL PATHOLOGY RECD BY: Cary Farrar ENTERED: 10/02/23 13:13 SP TYPE: PLAQUE OTHR DR: Dr. Janis Lehman MD Tissues: PLAQUE Procedures: Decalcification bone/plaque Surgery Specimen Level III HEADER OPERATION: Carotid endarterectomy PRE-OP DIAGNOSIS: Stenosis of right internal carotid artery TISSUE SUBMITTED: Plaque right carotid MICROSCOPIC DIAGNOSIS Plaque right carotid, endarterectomy: Atherosclerotic tissue with moderate to marked calcifications (plaque). JOSELINE:ronald 10/05/2023 GROSS DESCRIPTION Received in fixative is one container labeled with the patient's name and designated plaque right carotid. The specimen consists of a previously opened tubular piece of almaraz, indurated tissue measuring 2.0 cm in length and 1.0 cm in diameter. The lumen appears to be markedly narrow. The specimen cuts with gritty sensation. Also present in the container is a piece of almaraz, indurated tissue measuring 0.5 x 0.2 x 0.1 cm. The entire specimen is submitted in one cassette after decalcification. / JOSELINE:ronald 10/02/2023 TC:5 CPT: 00373, 73356
[2023-10-02] MEDS: Cefazolin 2 GM in 0.9% Normal Saline (100mL Bag) 100 ML IV (07:35)
[2023-10-02] MEDS: Bupivacaine Mpf 0.5% 30 ML VIAL (10:17)
--- NOTE | 2023-10-02 10:18 | OP.PCM_ITS ---
Report of Operation Date of Procedure: 10/02/23 Pre-Operative Diagnosis: right carotid stenosis Post-Operative Diagnosis: same Surgery/Procedure Performed:: right carotid endarterectomy Surgeon: Dominik Sparrow Type of Anesthesia: General Drains: 19 Fr LUKAS Estimated Blood Loss (mL): 25 Description of Procedure: HPI: Patient is a 67-year-old female with right carotid artery stenosis identified after visual changes prompted ophthalmology examination which revealed retinal artery occlusion. She presents now for right carotid endarterectomy. Description of procedure: Upon obtaining informed consent and verification correct patient procedure site patient to the operating where she was placed under general anesthesia. She was then positioned prepped and draped in usual fashion timeout was performed. Oblique incision made anterior to the sternocleidomastoid but electrocautery was dissect down through subcutaneous tissue to level the platysma. The platysma was then divided and self-retaining retractors put in position after which further dissection carried down to the sternocleidomastoid. This was then dissected free along the anterior border and retracted laterally exposing the jugular vein. Sharp dissection then used to dissect free the anterior border the jugular vein and the facial vein identified, ligated, and divided. The jugular vein was then retracted laterally exposing the carotid vessels and sharp dissection used dissect free the proximal common carotid artery with care taken to identify and protect the vagus nerve. Of note the vagus nerve was in the aberrant anterior position and had to be mobilized and retracted anterior medially. Sharp dissection was then used to dissect free distally onto the internal carotid artery beyond the palpable and visible plaque. This was then dissected free circumferentially and a right angle was placed vessel loop. Patient was in heparinized allowed circulate 3 minutes during which time sharp dissection used to dissect free the external carotid artery and a right angle used to place a vessel loop. Vessels were then occluded first the internal followed by the common and external after which an 11 blade was used to create an arteriotomy on the distal common carotid artery. Parker scissors were then used to extend this onto the internal carotid artery beyond the area of plaque and a 12 Belgian Sherwood shunt was placed first distally and allowed to backbleed before placing proximally in the common carotid artery. The shunt was then interrogated Doppler from the panel there was a signal. This point we performed her endarterectomy with a freer elevator with satisfactory endpoint distally on the internal carotid artery and eversion endarterectomy of the external carotid artery. The limb was then flushed with heparinized saline to clear debris in the distal endpoint was tacked with 7-0 Prolene interrupted sutures. A bovine pericardial patch was brought in field and secured in position using 6-0 Prolene in running fashion. Prior to completing suture line the shunt was removed and the vessel was backbled. After completing suture line clamps removed first from the internal carotid artery allowing it to backbleed and bifurcation then briefly as origin. Clamps were then removed from the external and common carotid artery allowing 10 heartbeats of antegrade flow to flush before reestablishing a treated flow into the internal carotid artery. After clamps removed satisfactory stasis was noted and the vessels were interrogated with Doppler. The internal carotid artery was patent with low resistance signal in the external carotid was patent. The patient was then reversed with protamine and the incision inspected hemostasis. There was generalized oozing from the some of the services the suture line so Marco A topical hemostatic was applied. A 19 Belgian channel LUKAS was then placed to be stable stab incision and the incision closed with 2-0 Vicryl, 3-0 Vicryl, 4 Monocryl and Dermabond for the skin. At the conclusion of the case patient was awake anesthesia moving all extremities to command cranial nerves intact. She was then taken to the recovery room with anticipated admission to intensive care unit for hemodynamic and neurologic monitoring.
[2023-10-02] MEDS: 0.45% Normal Saline 1,000 ML 100 ML IV ×2 (12:23→20:59)
[2023-10-02] MEDS: Acetaminophen 500 MG Tablet 1000 MG PO ×2 (12:34→20:57)
[2023-10-02] MEDS: oxyCODONE 5 MG Tablet PO ×3 (12:34→23:13)
[2023-10-02] MEDS: Cefazolin 1 GM/50 ML BAG IV ×2 (14:28→23:13)
[2023-10-02 15:30] LABS: ACT Activated Clotting Time 379 sec (74-137)
[2023-10-02 15:31] LABS: ACT Activated Clotting Time 179 sec (74-137)
[2023-10-02 15:31] LABS: ACT Activated Clotting Time 304 sec (74-137)
[2023-10-02] MEDS: 0.9% Normal Saline (500mL Bag) 500 ML 999 ML IV (16:23)
[2023-10-02] MEDS: Albumin Human 25% (100 mL) 25 GM/100 ML BAG IV (17:06)
[2023-10-02] MEDS: Calcium Carb/Vitamin D 1 TABLET Tablet PO (17:06)
[2023-10-02] MEDS: Ursodiol 250 MG Tablet PO (20:57)
[2023-10-02] MEDS: Atorvastatin Calcium 80 MG Tablet PO (20:58)
[2023-10-03] VITALS (17 sets, daily range): BP systolic 103–148; BP diastolic 40–96; PULSE 61–80; RESP 11–18; TEMP 36.1–36.4; O2SAT 91–95; BMI 35.4
[2023-10-03] MEDS: 0.45% Normal Saline 1,000 ML 100 ML IV (05:20)
[2023-10-03] MEDS: oxyCODONE 5 MG Tablet PO ×2 (05:20→13:46)
[2023-10-03] MEDS: Acetaminophen 500 MG Tablet 1000 MG PO ×2 (05:20→13:46)
[2023-10-03 05:45] LABS: Absolute Lymphocyte Count 1.31 X10^3/uL (0.83-4.51); Absolute Neutrophil Count 10.2 X10^3/uL (2.0-7.7); Basophil# 0.04 X10^3/uL; Basophil% 0.3 % (0-1); Eosinophil# 0.01 X10^3/uL; Eosinophils% 0.1 % (0-5); Hematocrit 35.2 % (37-47); Hemoglobin 11.9 g/dL (12.0-15.0); Lymphocyte # 1.31 X10^3/ul (0.83-4.51); Lymphocyte % 10.4 % (19-41); Mean Corp Hgb Conc 33.8 g/dL (32-36); Mean Corpuscular Hgb 32.7 pg (27.0-32.0); Mean Corpuscular Volume 96.7 fL (81-99); Mean Platelet Vol. 8.4 fl (6.2-12.0); Monocyte# 0.93 X10^3/uL; Monocyte% 7.4 % (0-10); NRBC Flagged by Analyzer 0 % (0-5); Neutrophil # 10.23 X10^3/uL (2.7-7.7); Neutrophil % 81.4 % (47-70); Platelet Count 176 K/mm3 (150-450); RBC Distribution Width CV 11.9 % (11.6-14.6); RBC Distribution Width SD 42.2 fl (35.1-43.9); Red Blood Count 3.64 M/mm3 (4.2-5.4); White Blood Count 12.6 K/mm3 (4.4-11.0)
[2023-10-03] MEDS: Ursodiol 250 MG Tablet PO (08:35)
[2023-10-03] MEDS: Vitamin E 400 UNITS Capsule PO (08:36)
[2023-10-03] MEDS: Aspirin 81 MG TAB.CHEW PO (08:36)
[2023-10-03] MEDS: Multivitamins,Therapeutic Tablet 1 TABLET PO (08:36)
[2023-10-03] MEDS: Cholecalciferol (VIT D3) 25 MCG TABLET (1,000 UNITS) PO (08:37)
[2023-10-03] MEDS: Citalopram 20 MG Tablet PO (08:37)
[2023-10-03] MEDS: Clopidogrel Bisulfate 75 MG Tablet PO (08:37)
[2023-10-03] MEDS: Calcium Carb/Vitamin D 1 TABLET Tablet PO (08:37)
[2023-10-03] MEDS: Enoxaparin 40 MG/0.4 ML Syringe SC (08:38)
--- NOTE | 2023-10-03 09:14 | CASEMGMT ---
JOSEF GRACE Assessment Face to Face with patient for initial transition planning/care coordination assessment. JOSEF GRACE introduced self and role at [facility], pt voices understanding. Pt is A&Ox4 and is resting comfortably in bed and is calm. Care providers, pharmacy, and demographics verified. Admitting dx: Rt Carotid Endarterectomy LACE Strata: 2 PCP: [place] Specialists: Uday Pang (Director Biostatistics), Dr. Eda SO (GI), [facility] Preferred Pharmacy: [facility] and [facility] Insurance: MCR A B, Secondary is ANTHEM Prescription Benefit: Yes LNOK: Britton Wylie (H) Living Arrangements: Pt lives with her in a two story home with a BM with HR throughout and 2 steps to enter the home without HR and no difficulties. ADLs/IADLs: Ind Transportation: Pt drives. Pt will drive the pt home from [facility] DME: Cane and walker at home but does not use. Walk-in shower. Raised toilet seat. Denies all other DME uses or needs. HHC/SNF: Denies history or needs. Pt?s goal: Home today with no additional needs. Plan: Pt 6-Click is 22. Therapy eval is pending. Pt states that she is independent at home and does not require further/ additional therapy. Pt denies the need for OP therapy or HHC at this time. Pt states that she feels safe and comfortable DC today with no additional needs. Pt states that the MD stated that the pt will be able to DC later today. Will follow therapy recommendations. Verito Moralez RN, CM
--- NOTE | 2023-10-03 11:57 | PCM.PN.SRG ---
Subjective Subjective Patient is seen resting comfortably in bed this morning. She tolerated a normal dinner yesterday evening. She has been voiding without difficulty. Reports some discomfort, but well controlled with oral pain medication. No significant hoarseness. She reports a mildly sore throat. She denies CHESTER. Her BP were low following surgery, they have improved but remain 120-130 systolic so have continued to hold BP medications this morning. LUKAS drain had about 40 cc out yesterday and overnight. Only about 10 cc was drained this morning. Objective Data Objective Data Vital Signs: Vital Signs Temp Pulse Resp BP Pulse Ox O2 Del Method O2 Flow Rate 97.0 F L 71 11 L 123/96 H 94 Room Air 2 10/03/23 08:00 10/03/23 10:00 10/03/23 10:00 10/03/23 10:00 10/03/23 10:00 10/03/23 10:00 10/02/23 17:00 FiO2 3 10/02/23 11:30 Oxygen Flow Rate (L/min) 2 Oxygen Delivery Method Room Air Weight: 220 lb 3.869 oz Body Mass Index (BMI) 35.4 Intake & Output: Intake and Output for Last 24 Hours 10/01/23 10/02/23 10/03/23 23:59 23:59 23:59 Intake Total 3715 / 3715 1218.33 / 1218.33 Output Total 553 / 553 600 / 600 Balance 3162 / 3162 618.33 / 618.33 Lab / Micro Data 10/03/23 05:30 09/27/23 12:17 Labs: Laboratory Results - last 24 hr 10/02/23 07:47: Activated Clotting Time 179 H 10/02/23 09:03: Activated Clotting Time 379 H 10/02/23 09:42: Activated Clotting Time 304 H 10/03/23 05:30: WBC 12.6 H, RBC 3.64 L, Hgb 11.9 L, Hct 35.2 L, MCV 96.7, MCH 32.7 H, MCHC 33.8, RDW Std Deviation 42.2, RDW Coeff of Shabbir 11.9, Plt Count 176, MPV 8.4, Immature Gran % (Auto) 0.400, Neut % (Auto) 81.4 H, Lymph % (Auto) 10.4 L, Sargent % (Auto) 7.4, Eos % (Auto) 0.1, Baso % (Auto) 0.3, Absolute Neuts (auto) 10.2 H, Absolute Lymphs (auto) 1.31, Nucleated RBC % 0 Physical Exam Const oriented x3 and no apparent distress HEENT HEENT Narrative: R neck incision site with surgical glue intact, no dehiscence. There is mild swelling around the incision site, soft to palpation with expected tenderness. There is mild ecchymosis. No significant erythema/warmth. Eyes EOMs intact bilaterally General Eye: normal appearance of both eyes Neck General: normal visual inspection and trachea midline Resp normal respiratory effort Cardio regular rate and regular rhythm Extremity normal to inspection and no calf tenderness Neuro oriented x3, CN's II-XII intact bilaterally, moves all extremities and no focal motor deficits Speech: speech normal Psych mental status grossly normal Appearance: grossly normal Attitude: calm and engaged Activity / Motor Behavior: appropriate eye contact Speech: normal speech Mood & Affect: euthymic mood Judgement: judgement good Assessment & Plan Assessment/Plan (1) Stenosis of right internal carotid artery: PLAN: Plan Patient is s/p R CEA on 10/02/2023. She was hypotensive following surgery but did not require any vasopressor support. Her BPs have improved to the 120-130s systolic and have been stable here. Continue to hold home BP medications and monitor BP. LUKAS drain was removed without issue. Incision site is satisfactory without evidence of hematoma. Will plan for her to get up to the chair and ambulate later this morning/early afternoon and then anticipate d/c home late this afternoon.
--- NOTE | 2023-10-03 14:21 | DS.PCM_ITS ---
Providers Date of Admission: 10/02/23 Primary Care Physician: Dr. Janis Lehman MD Reason For Visit: Carotid Endarterectomy (rt) Diagnosis Discharge Diagnosis (1) Stenosis of right internal carotid artery: Status: Chronic Code(s): I65.21 - Occlusion and stenosis of right carotid artery Medications at Discharge Home Medications aspirin 81 mg chewable tablet 81 mg PO DAILY@0800 BLOOD THINNER 03/22/15 lactobacillus combination no.8 3 billion cell capsule (Adult Probiotic) 3,000 mmu cells PO QDAY SUPPLEMENT 08/01/17 multivitamin (Daily Multi-Vitamin tablet) 1 tab PO QDAY SUPPLEMENT 08/01/17 cholecalciferol (vitamin D3) 25 mcg (1,000 unit) tablet 25 mcg PO DAILY SUPPLEMENT 06/15/21 abatacept (with maltose) 250 mg intravenous solution (Orencia (with maltose)) ml .Route RA 12/14/21 calcium citrate 315 mg-vitamin D3 5 mcg (200 unit) tablet (Calcium Citrate + D) 1 tab PO BID SUPPLEMENT 12/14/21 nitroglycerin 0.4 mg sublingual tablet (Nitrostat) 0.4 mg sublingual Q5-15M PRN chest pain #25 tabs 03/23/22 lisinopril 2.5 mg tablet 2.5 mg PO DAILY BP #90 tabs 12/26/22 metoprolol tartrate 25 mg tablet 25 mg PO BID BP #180 tabs 12/26/22 blood pressure monitor #1 ea 04/27/23 blood pressure monitor #1 ea 04/27/23 atorvastatin 80 mg tablet 80 mg PO DAILY CHOLESTEROL #90 tabs 08/23/23 citalopram 20 mg tablet 20 mg PO DAILY ANTIDEPRESSANT #90 tabs 08/23/23 clopidogrel 75 mg tablet 75 mg PO DAILY BLOOD THINNER #90 tabs 08/23/23 ursodiol 300 mg capsule 300 mg PO BID SUPPLEMENT #60 caps 09/13/23 vitamin E succinate 268 mg (400 unit) tablet 268 mg PO DAILY SUPPLEMENT 09/21/23 oxycodone 5 mg tablet 5 mg PO Q8H PRN PRN Pain Score 4-10 5 days #15 tabs 10/03/23 Hospital Course Summary of Care Provided Hospital Course: Stacey Wylie is a 67 y/o female who underwent R CEA on 10/02/2023. Postoperatively, she was routinely admitted to the ICU for hemodynamic and neurologic monitoring. She has remained neurologically stable. She was hypotensive following surgery though not requiring vasopressor support. Her home BP medications had been held secondary to this. Her BP has been stable today and systolic in the 140s this afternoon. Will plan to have her restart metoprolol this evening and then restart lisinopril on Sunday as long as no low BPs at home. The surgical site is satisfactory in appearance with expected swelling. Her pain is well-controlled on oral regimen. She is tolerating a normal diet, voiding without difficulty, and ambulating well. She is medically stable for discharge home today. She will continue ASA, Plavix, and statin at home. She will return to the office in 1-2 weeks for follow-up. Physical Exam Const oriented x3 and no apparent distress HEENT HEENT Narrative: R neck incision site with surgical glue intact, no dehiscence. There is mild swelling around the incision site, soft to palpation with expected tenderness. There is mild ecchymosis. No significant erythema/warmth. Eyes EOMs intact bilaterally General Eye: normal appearance of both eyes Neck General: normal visual inspection and trachea midline Resp normal respiratory effort Cardio regular rate and regular rhythm Extremity normal to inspection and no calf tenderness Neuro oriented x3, CN's II-XII intact bilaterally, moves all extremities and no focal motor deficits Speech: speech normal Psych mental status grossly normal Appearance: grossly normal Attitude: calm and engaged Activity / Motor Behavior: appropriate eye contact Speech: normal speech Mood & Affect: euthymic mood Judgement: judgement good Weight / BMI Weight Weight: 220 lb 3.869 oz Body Mass Index (BMI) 35.4 ABG / Lab / Microbiology Data 10/03/23 05:30 09/27/23 12:17 Laboratory: Laboratory Results - last 24 hr 10/02/23 07:47: Activated Clotting Time 179 H 10/02/23 09:03: Activated Clotting Time 379 H 10/02/23 09:42: Activated Clotting Time 304 H 10/03/23 05:30: WBC 12.6 H, RBC 3.64 L, Hgb 11.9 L, Hct 35.2 L, MCV 96.7, MCH 32.7 H, MCHC 33.8, RDW Std Deviation 42.2, RDW Coeff of Shabbir 11.9, Plt Count 176, MPV 8.4, Immature Gran % (Auto) 0.400, Neut % (Auto) 81.4 H, Lymph % (Auto) 10.4 L, [place] % (Auto) 7.4, Eos % (Auto) 0.1, Baso % (Auto) 0.3, Absolute Neuts (auto) 10.2 H, Absolute Lymphs (auto) 1.31, Nucleated RBC % 0 D/C Instructions Discharge Diet: No restrictions May shower in (days): 1 Weight Bearing Status: Weight bearing as tolerated Lifting Restricted to (Lbs): 20 Call your doctor if your incision/area has: Sudden Increased Bleeding, Increased Pain/ Swelling and Foul Smelling Discharge Call your doctor if you observe: Fever of 101 or Higher and Uncontrolled pain Remove Dressing in: 1 day Additional Instructions: You have a small bandage over the site from which the surgical drain was removed. You may remove this bandage tomorrow. As long as there is no residual drainage, you may leave this open to air. If you do notice some continued drainage, you may re-cover with a Band-Aid. Your incision site is covered with surgical glue which will continue to protect it. The surgical glue will peel/flake off on its own over the next few weeks. Please do not pick at it. You may shower tomorrow. It is okay for soap and water to rinse over the incisi on site, pat to dry. Do not submerge the incision site in water such as to take a bath or go swimming etc. for 3 weeks. Do not lift greater than 20 pounds for 3 weeks. Otherwise, please continue with activity as tolerated. Do not drive until you can turn your head well enough to safely check your blind spots. Please restart your Metoprolol 25mg tablet tonight and continue to take as usual twice daily starting tomorrow. Please continue to hold your Lisinopril. Check your blood pressures 1-2 times a day. When the systolic pressure (top number) is >140, then please restart your Lisinopril 2.5mg daily. If you have any questions about this, please call the office. I have prescribed a prescription pain medication oxycodone 5 mg tablets to be taken by mouth every 8 hours as needed for pain. This is an opioid pain medication and is to be taken only as directed and as needed. Do not take in combination with any other prescription pain medications. You may take this in addition to Tylenol or ibuprofen as allowed. If you have any questions or concerns please contact the office at [phone]. Please Follow Up With: Cally Johnson PA When: 1-2 weeks Meaningful Use Info Meaningful Use Diagnoses (Choose all that apply): None applicable Discharge Plan Admission Admit Date/Time: 10/02/23 05:23 Primary Reason for Your Visit: Right carotid endarterectomy Attending Provider: Dominik Sparrow Primary Care Provider: Janis Lehman Consulting Providers: KIRK ROSE Instructions Additional Instructions / Restrictions: You have a small bandage over the site from which the surgical drain was removed. You may remove this bandage tomorrow. As long as there is no residual drainage, you may leave this open to air. If you do notice some continued drainage, you may re-cover with a Band-Aid. Your incision site is covered with surgical glue which will continue to protect it. The surgical glue will peel/flake off on its own over the next few weeks. Please do not pick at it. You may shower tomorrow. It is okay for soap and water to rinse over the inci heber site, pat to dry. Do not submerge the incision site in water such as to take a bath or go swimming etc. for 3 weeks. Do not lift greater than 20 pounds for 3 weeks. Otherwise, please continue with activity as tolerated. Do not drive until you can turn your head well enough to safely check your blind spots. Please restart your Metoprolol 25mg tablet tonight and continue to take as usual twice daily starting tomorrow. Please continue to hold your Lisinopril. Check your blood pressures 1-2 times a day. When the systolic pressure (top number) is >140, then please restart your Lisinopril 2.5mg daily. If you have any questions about this, please call the office. I have prescribed a prescription pain medication oxycodone 5 mg tablets to be taken by mouth every 8 hours as needed for pain. This is an opioid pain medication and is to be taken only as directed and as needed. Do not take in combination with any other prescription pain medications. You may take this in addition to Tylenol or ibuprofen as allowed. If you have any questions or concerns please contact the office at [phone]. Discharge Orders/Prescriptions Prescriptions: New oxycodone 5 mg Tablet 5 mg PO Q8H PRN PRN (Reason: Pain Score 4-10) 5 Days Qty: 15 0RF Continued multivitamin [Daily Multi-Vitamin] tablet 1 tab PO QDAY Adult Probiotic 3 billion cell capsule 3,000 mmu cells PO QDAY calcium citrate-vitamin D3 [Calcium Citrate + D] 315 mg-5 mcg (200 unit) tablet 1 tab PO BID cholecalciferol (vitamin D3) 25 mcg (1,000 unit) tablet 25 mcg PO DAILY Orencia (with maltose) 250 mg recon soln .Route Rx Instructions: IV infusion monthly ursodiol 300 mg capsule 300 mg PO BID Qty: 60 6RF aspirin 81 MG tablet,chewable 81 mg PO DAILY@0800 vitamin E succinate 268 mg (400 unit) tablet 268 mg PO DAILY nitroglycerin [Nitrostat] 0.4 mg tablet, sublingual 0.4 mg SUBLINGUAL Q5-15M PRN (Reason: chest pain) Qty: 25 3RF lisinopril 2.5 mg tablet 2.5 mg PO DAILY Qty: 90 3RF metoprolol tartrate 25 mg tablet 25 mg PO BID Qty: 180 3RF atorvastatin 80 mg tablet 80 mg PO DAILY Qty: 90 3RF citalopram 20 mg tablet 20 mg PO DAILY Qty: 90 3RF clopidogrel 75 mg tablet 75 mg PO DAILY Qty: 90 3RF No Action (DME) blood pressure monitor Kit See Rx Instructions .MEDSUPPLY Qty: 1 0RF Rx Instructions: Check blood pressure daily for hypertension I10 (DME) blood pressure monitor Kit See Rx Instructions .MEDSUPPLY Qty: 1 0RF Rx Instructions: Check blood pressure daily for hypertension I10 Referrals / Follow Up: Janis Lehman MD [Primary Care Provider] - Disposition Disposition (needs filled in before D/C Order can be placed): Home, Self Care
== END 2023-10-03 15:48 | disposition home or self-care (01) | DRG 38 ==
LOC: ACINP 05:25 → ICU 08:57
PROVIDERS: Internal Medicine Gastroenterology; Admitting Provider Surgery Trauma Surgery; PCP Internal Medicine; Referring Provider Surgery Trauma Surgery; Visit Provider Surgery Trauma Surgery
PROC: 03CK0ZZ Extirpation of Matter from Right Internal Carotid Artery, Open Approach (ICD-10-PCS; CPT 35301; principal; 2023-10-02 07:10)
DX: I65.21 Occlusion and stenosis of right carotid artery (principal); H34.231 Retinal artery branch occlusion, right eye; Z79.02 Long term (current) use of antithrombotics/antiplatelets; Z79.82 Long term (current) use of aspirin; Z87.891 Personal history of nicotine dependence; Z79.899 Other long term (current) drug therapy
CPT/HCPCS: 36415; 80053; 85025; 85347; 86850; 86900; 86901; 88304; 88311; 93005; 94668; 97802; 99252; A4648; J7030; J7040; J7120; P9047; G0463; J2405; J3490

== ENCOUNTER → 2023-11-19 | Outpatient (CLI) | payer MEDICARE, BC, SELFPAY ==
--- NOTE | 2023-11-19 10:01 | US_ITS ---
STUDY: ABDOMINAL ULTRASOUND - RIGHT UPPER QUADRANT; ELASTOGRAPHY REASON FOR VISIT: Female, 68 years old. Fatty infiltration of the liver. TECHNIQUE: Ultrasound evaluation of the right upper quadrant was performed with real-time and static means-scale imaging. Point quantification shear wave elastography was performed ([employer]). TECHNICAL QUALITY: Adequate. COMPARISON: Comparison is made with prior study dated May 12, 2023. FINDINGS: Liver: The liver measures 16.9 cm. There is increased echogenicity consistent with fatty infiltration. The bile ducts are within normal limits. There is hepatic color flow. The direction of portal flow is hepatopetal. There is no demonstrated mass lesion. Median liver stiffness measured 6.8 kPa. Gallbladder: Normal distended gallbladder. The gallbladder wall measures 2.3 mm. There is a negative sonographic Schroeder''s sign. There is no pericholecystic fluid. There are no gallstones. Common Bile Duct (C.B.D.): The common bile duct measures 4.5 mm. Pancreas: The pancreas was not visualized due to overlying bowel gas. Right Kidney: Normal size of the right kidney. The right kidney measures 11.2 cm x 4.1 cm x 4.4 cm. Normal renal cortex. The right cortex measures 1.1 cm. There is no demonstrated renal mass or cyst. There is no right hydronephrosis. US/ABD Limited w/ Elastography IMPRESSION: 1. Liver stiffness measures 6.8 kPa compatible with F2-F3 (Mild to moderate liver fibrosis) Metavir score. Electronically Signed: Sachin Mensah MD at 11:22 EDT ,
== END | disposition home or self-care (01) ==
LOC: US 10:00
PROVIDERS: PCP Internal Medicine; Referring Provider Internal Medicine Gastroenterology; Visit Provider Internal Medicine Gastroenterology
DX: K76.0 Fatty (change of) liver, not elsewhere classified (principal)
CPT/HCPCS: 76705; 76981

== ENCOUNTER 2023-12-26 05:17 | Day surgery (SDC) | payer MEDICARE, BC, SELFPAY ==
[2023-12-26 05:57] VITALS: BP 113/78; PULSE 67; RESP 16; TEMP 36.6; O2SAT 93; BMI 33.9
[2023-12-26] MEDS: Lactated Ringers 1,000 ML 15 ML IV (06:15)
--- NOTE | 2023-12-26 06:30 | EGD_PTH ---
PATIENT: SUNDAR DOWNEY LOC: EN U#:[id number] AGE/SX: 68/F ROOM: RE12/26/[address]: Dr. Beto Veras DO : 1955 BED: DIS: 12/26/2023 SPEC #: [id number] RECD: 12/26/23 08:50 STATUS: ZAIRA RENadeem #: [id number] SARATH: 12/26/23 06:[address]: Beto Veras DEPT: SURGICAL PATHOLOGY RECD BY: Liz Hanks ENTERED: 12/26/23 10:45 SP TYPE: EGD BIOPSY OT DR: Dr. Janis Lehman MD Tissues: A - Gastric mucous membrane B - Duodenum, NOS C - Esophagus, NOS D - Cecum, NOS Procedures: Surgery Specimen Level IV HEADER OPERATION: EGD, colonoscopy with biopsy PRE-OP DIAGNOSIS: Diverticulitis TISSUE SUBMITTED: A- Gastric antrum biopsy, B- Duodenum biopsy, C- Distal esophagus biopsy, D- Cecal polyp MICROSCOPIC DIAGNOSIS A. Gastric antrum, biopsy: Chronic gastritis. See comment. B. Duodenum, biopsy: Mild non-specific chronic inflammation. Focal gastric metaplasia. C. Distal esophagus, biopsy: Gastroesophageal junctional mucosa with chronic inflammation. Focal changes of reflux. No evidence of goblet cell metaplasia. See comment. D. Cecal polyp, biopsy: Fragments of hyperplastic polyp. Fragment of tubular adenoma. AM/ 12/27/2023 COMMENT A. The results of immunohistochemistry for Helicobacter pylori will be reported separately ([id number]). C. Immunohistochemistry ([id number]) supports the above diagnosis. MICROSCOPIC DESCRIPTION Slides are reviewed. GROSS DESCRIPTION A. Received in fixative is one container labeled with the patient's name and designated gastric antrum. The specimen consists of two irregular fragments of light almaraz soft tissue that in aggregate measure 0.6 x 0.3 x 0.1 cm. The specimen is totally submitted in one cassette. B. Received in fixative is one container labeled with the patient's name and designated Duodenum biopsy. The specimen consists of two irregular fragments of light almaraz soft tissue that in aggregate measure 0.5 x 0.5 x 0.1 cm. The specimen is totally submitted in one cassette. C. Received in fixative is one container labeled with the patient's name and designated Distal esophagus biopsy. The specimen consists of two irregular fragments of light almaraz soft tissue that in aggregate measure 0.5 x 0.5 x 0.1 cm. The specimen is totally submitted in one cassette. D. Received in fixative is one container labeled with the patient's name and designated Pylorus cecal polyp. The specimen consists of multiple irregular fragments of light almaraz soft tissue that in aggregate measure 1.0 x 0.7 x 0.1 cm. The specimen is totally submitted in one cassette. EUNICE/ 12/26/2023 TC:3 CPT:82295s8
--- NOTE | 2023-12-26 06:30 | IMM_PTH ---
PATIENT: SUNDAR DOWNEY LOC: EN U#:[id number] AGE/SX: 68/F ROOM: RE12/26/[address]: Dr. Beto Veras DO : 1955 BED: DIS: 12/26/2023 SPEC #: [id number] RECD: 12/26/23 11:28 STATUS: ZAIRA REQ #: [id number] SARATH: 12/26/23 06:[address]: Beto Veras DEPT: IMMUNOHISTOCHEMISTRY RECD BY: Jorge Truong ENTERED: 12/26/23 11:28 SP TYPE: IMMUNO OT DR: Dr. Janis Lehman MD Tissues: A - Gastrointestinal mucous membrane, NOS C - Esophagus, NOS Procedures: H Pylori (initial) CD20 (add) CD45 (add) CD5 (add) CD79A (add) CD3 (initial) PHYSICIAN & INSTITUTION [place] [id number] SPECIMEN INFORMATION: Tissue Source: A- Gastric antrum biopsy, C- Distal esophagus biopsy Clinical Info: Diverticulitis Specimen Number: [id number] A, C CPT code: [id number] METHODOLOGY: Deparaffinized sections of prefer/formalin-fixed tissue or PAP/DQ stained slides are incubated with monoclonal/polyclonal antibodies/oligonucleotide probes. Localization is made via biotin free immunoperoxidase method. Appropriate controls are performed and reacted as expected. Results on target cell population are indicated in the following table: RESULTS: ANTIBODY / CLONE RESULT Block A H Pylori (polyclonal) negative Block C CD3 (PS1) positive CD5 (SP10) positive CD20 (L26) positive CD79a (11E3) positive CD45 (RP2/18) positive These tests were developed and their performance characteristics determined by [facility]. They may not have been cleared or approved by the [place]. Food and Drug Administration. The FDA has determined that such clearance or approval is not necessary. The above immunohistochemical/dualISH markers are ordered and reviewed by the Pathologist. INTERPRETATION: A. Gastric antrum, biopsy: Negative for Helicobacter pylori organisms. C. Distal esophagus, biopsy: Polytypic lymphoid aggregates. EUNICE/ 12/28/2023
--- NOTE | 2023-12-26 06:51 | PCM.HP.BLA ---
History and Physical Date of Admission: 12/26/23 Establish Fatty Liver Details: PCP OV 12.12.22 with diverticulitis concern. Originally diagnosed with diverticulosis 2013 during screening colonoscopy with subsequent three episodes of diverticulitis with 2 being in the last 6 months. Concern this visit with additional episode. Treated with Augmentin. *BGI established 04.25.23 previously seen by GI in [place]. Reports diverticulitis several times a year. BM vary between normal consistency without difficulty and looser stools 2-3 times a week, feels these are food triggered. Does not take anything for bowel management. Rx Sulfasalazine US abd/ elastography 05.12.23 Fatty infiltration of liver ? Liver measures 16cm ?7.73 kPa Contact 05.30.23 with results: focus on management of contributing factors, particularly diet and exercise; will repeat bloodwork/imaging just prior to next appointment in October. SUNDAR DOWNEY, is a 67 F who presents to the office today for fatty liver follow up. Updates upcoming carotid endarterectomy with Dr. Sparrow Vascular surgeon. About 2-3 times loose BM/day, usually first BM is formed but later may be sudden out, liquid BM, not incontinent with no blood or mucus. No fever. Continues to attempt to eat healthy most. Still working on increasing exercise. Hx knee right knee replacement in 10/2022. Fell 03/2023. Discomfort has improved, but continued stiffness. Plans to increase daily walking. 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 ROS Const Constitutional: No fatigue, fever(s), frequent falls, headache(s), weakness or weight change ENT ENT: No headache(s) or difficulty swallowing Cardio Cardiology: No leg pain with exertion Gastro GI: Positive for diarrhea; No abdominal pain, bloating, change in bowel habits, constipation, heartburn, difficulty swallowing, excessive flatus, Vomiting blood/hematemesis, Blood in stool, nausea/dyspepsia or vomiting Musc Musculoskeletal: Positive for stiffness and Arthritis; No joint pain, back pain, joint swelling, muscle cramps, muscle weakness, numbness, tingling, sciatica, restless legs, leg pain at night or leg pain with exertion Skin Skin: No dry skin, lesions, itchy eyes or rash Neuro Neurology: No behavioral changes, unsteady gait/balance, weakness, frequent falls, headache(s), numbness, tingling, restless legs, tremor(s), Increased tone in limbs, paralysis or seizures Psych Psychiatric: No anxiety, No behavioral changes, No depression, No paranoia, No Compulsive Behavior, No hyperactivity, No inattentiveness, No obsessions/compulsions, No Temper Tantrums and No suicidal ideation Endo Endocrine: No fatigue or weight change Aller/Imm Allergy/Immunologic: No itchy eyes Ankur/Lymp Hematologic/Lymphatic: No easy bleeding or easy bruising Exam Const General: cooperative, no acute distress and well developed Nutritional Appearance: average body habitus Orientation: alert, awake and oriented x3 [facility] Head: normocephalic and atraumatic Nose: external nose normal Face and sinus: normal facial exam Mouth: moist mucous membranes Eyes Pupils: PERRL EOM: EOM intact bilaterally Neck Neck: normal visual inspection, no meningeal signs and trachea midline Carotids: no bruits Chest Chest palpation & inspection: normal inspection of the chest Resp Effort & Inspection: normal respiratory effort and symmetric chest movement Auscultation: Bilateral: Clear to Auscultation Cardio Palpation: normal PMI Rate: regular rate Rhythm: regular rhythm Heart Sounds: S1 normal and S2 normal GI Auscultation: normal bowel sounds Percussion: normal to percussion Palpation: soft, no hepatosplenomegaly and no guarding Other: No tenderness guarding or rigidity. Percussion note not tympanic but dull. Fat abdomen. General: bimanual renal exam normal bilaterally, bladder normal to inspection and bladder normal to palpation Bimanual Exam- Vagina & Uterus: bladder normal to palpation Musc Musculoskeletal: No joint tenderness, joint redness, joint warmth or decreased range of motion Thoracic/Lumbar Spine: thor and lumb spine abnorm to inspection Skin General: rashes and/or lesions noted, turgor normal and no erythema Wounds: wound noted Neuro General: patient alert, patient awake, patient oriented x3 and no focal motor deficits Speech: speech normal Motor: muscle tone normal throughout Extrem General: normal exam except as noted Other: No pedal edema. Psych Appearance: grossly normal Mood: congruent mood Affect: normal affect Attitude: cooperative Quality Reporting Tobacco Screening ([facility] 138) Smoking Status: Former smoker Assessment and Plan Assessment and Plan (1) Diverticulitis: Status: Chronic Plan: Acute recurrent diverticulitis. She had CT abdomen done outside. It was sigmoid colitis associated with diverticulosis. She had tried mesalamine and butyrin site last time and was given prescription for sulfasalazine 500 mg twice daily which she completed. Inflammatory markers in April 21 shows elevated CRP 12.9, LDH 178 normal and ferritin 151. CRP was still elevated at 16.9 in July 2023. Autoimmune markers were negative. She is on abatacept monthly IV infusion and her diarrhea is much controlled with probiotics. She stated if she needs sulfasalazine she will call us. Will schedule EGD and colonoscopy as she had colonoscopy 10 years ago. (2) Collagenous colitis: Status: Chronic Plan: Her diarrhea is well-controlled and about 2-3 times in 1 week therefore does not seem collagenous colitis but when she gets colonoscopy she will have biopsy. (3) NAFLD (nonalcoholic fatty liver disease): Status: Chronic Plan: She had liver ultrasound with FibroScan in April 2023 which shows liver normal in size. Elastography shows median liver stiffness 7.73 consistent with F1 F2 Metabet score. No demonstrated mass lesion. CBD 8.1 mm, GB normal with no gallstones. Fib 4 score shows 0.99 advanced fibrosis excluded. Approximate fibrosis stage Sami 0-1. She had a liver biopsy in the past due to elevated liver enzymes and she said there was just fatty liver disease but she did not know if there is any fibrosis on the liver biopsy. In my opinion she does not need liver biopsy. I discussed the risk factors, pathogenesis, natural history complications including cirrhosis and HCC of metabolic dysfunction associated steatotic liver disease, (MASLD) and patient affirmed understanding. There is no approved FDA medication for NAFLD but medications used for diabetes mellitus and weight loss mainly to metformin, pioglitazone and GLP-1 agonist have been found to decrease fatty content and improve fibrosis score found in the research literature. Last A1c 5.5 on 04/25/2023. She does not have prediabetes or diabetes mellitus. I advised healthy lifestyle including low-carb low-fat, low-salt diet with avoiding frozen fried and red meat. Increase exercise. She agreed to take vitamin E 400 units twice daily and ursodiol 300 mg once daily. She wants to try once daily and later on increased to twice daily if her bowel tolerates. 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 angina pectoris, K52.831 - Collagenous colitis, K57.92 - Diverticulitis of intestine, part unspecified, without perforation or abscess without bleeding, K76.0 - Fatty (change of) liver, not elsewhere classified Comprehensive Metabolic Profil 3 Months K52.831 - Collagenous colitis, K57.92 - Diverticulitis of intestine, part unspecified, without perforation or abscess without bleeding, K76.0 - Fatty (change of) liver, not elsewhere classified CRP 3 Months K52.831 - Collagenous colitis, K57.92 - Diverticulitis of intestine, part unspecified, without perforation or abscess without bleeding, K76.0 - Fatty (change of) liver, not elsewhere classified CBC W/Diff, Automated 3 Months K52.831 - Collagenous colitis, K57.92 - Diverticulitis of intestine, part unspecified, without perforation or abscess without bleeding, K76.0 - Fatty (change of) liver, not elsewhere classified LDH 3 Months K52.831 - Collagenous colitis, K57.92 - Diverticulitis of intestine, part unspecified, without perforation or abscess without bleeding, K76.0 - Fatty (change of) liver, not elsewhere classified Lipid Profile 3 Months I10 - Essential (primary) hypertension, K52.831 - Collagenous colitis, K57.92 - Diverticulitis of intestine, part unspecified, without perforation or abscess without bleeding, K76.0 - Fatty (change of) liver, not elsewhere classified ABD Limited w/ Elastography 3 Months K52.831 - Collagenous colitis, K57.92 - Diverticulitis of intestine, part unspecified, without perforation or abscess without bleeding, K76.0 - Fatty (change of) liver, not elsewhere classified Medications: New vitamin E succinate 268 mg PO BID 60 tabs 6RF ursodiol 300 mg PO BID 60 caps 6RF I have examined the patient and the H&P has been reviewed. There are no clinical changes since date of exam.
[2023-12-26 07:17] VITALS: BP 113/78; BP 155/90; PULSE 66; RESP 18; TEMP 36.2; O2SAT 95
--- NOTE | 2023-12-26 07:18 | OP.COLON_ITS ---
Patient Name: Stacey Wylie Procedure Date: 12/26/2023 6:59 AM Date of : 1955 Age: 68 Procedure: Colonoscopy Indications: Screening for colorectal malignant neoplasm Providers: Beto Veras DO Medicines: Monitored Anesthesia Care Patient Profile: This is a 68 year old female. Refer to note in patient chart for documentation of history and physical. Last Colonoscopy: date unknown. Unable to locate last colonoscopy report. Complications: No immediate complications. Procedure: Pre-Anesthesia Assessment: - Prior to the procedure, a History and Physical was performed, and patient medications and allergies were reviewed. The patient is competent. The risks and benefits of the procedure and the sedation options and risks were discussed with the patient. All questions were answered and informed consent was obtained. Patient identification and proposed procedure were verified by the physician in the pre-procedure area. Mental Status Examination: alert and oriented. Airway Examination: normal oropharyngeal airway and neck mobility. Respiratory Examination: clear to auscultation. CV Examination: normal. Prophylactic Antibiotics: The patient does not require prophylactic antibiotics. Prior Anticoagulants: The patient has taken no anticoagulant or antiplatelet agents. ASA Grade Assessment: II - A patient with mild systemic disease. After reviewing the risks and benefits, the patient was deemed in satisfactory condition to undergo the procedure. The anesthesia plan was to use monitored anesthesia care (MAC). Immediately prior to administration of medications, the patient was re-assessed for adequacy to receive sedatives. The heart rate, respiratory rate, oxygen saturations, blood pressure, adequacy of pulmonary ventilation, and response to care were monitored throughout the procedure. The physical status of the patient was re-assessed after the procedure. After I obtained informed consent, the scope was passed under direct vision. Throughout the procedure, the patient's blood pressure, pulse, and oxygen saturations were monitored continuously. The colonoscope was introduced through the anus and advanced to the cecum, identified by the appendiceal orifice. The colonoscopy was performed without difficulty. The patient tolerated the procedure well. The quality of the bowel preparation was adequate. The ileocecal valve, appendiceal orifice, and rectum were photographed. Scope In: 7:04:00 AM Scope Withdrawal Time 0 hours 7 minutes 16 seconds Scope Out: 7:11:19 AM Total Procedure Duration Time 0 hours 7 minutes 19 seconds Findings: The perianal and digital rectal examinations were normal. Multiple small and large-mouthed diverticula were found in the entire colon. Two sessile polyps were found in the cecum. The polyps were 1 to 2 mm in size. These polyps were removed with a cold snare. Resection and retrieval were complete. Verification of patient identification for the specimen was done. Estimated blood loss was minimal. The exam was otherwise without abnormality on direct and retroflexion views. Impression: - Diverticulosis in the entire examined colon. - Two 1 to 2 mm polyps in the cecum, removed with a cold snare. Resected and retrieved. - The examination was otherwise normal on direct and retroflexion views. Recommendation: - Discharge patient to home. - Resume previous diet. - Continue present medications. - Await pathology results. - Repeat colonoscopy in 5 years for surveillance. - Return to GI office. Procedure Code(s): --- Professional --- 02620, Colonoscopy, flexible; with removal of tumor(s), polyp(s), or other lesion(s) by snare technique CPT copyright 2021 [employer]. All rights reserved. The codes documented in this report are preliminary and upon professional fee coder review may be revised to meet current compliance requirements. Beto Veras DO 12/26/2023 7:17:39 AM This report has been signed electronically. Number of Addenda: 0 Note Initiated On: 12/26/2023 6:59 AM
--- NOTE | 2023-12-26 07:18 | OP.CCLET_ITS ---
12/26/2023 Janis Lehman MD [address] [place] [address] [place] [address] Re : Colonoscopy procedure for Stacey Reynajon Dear Dr. Lehman This procedure was performed on Tuesday, December 26, 2023. My impressions and recommendations are as follows: Impressions : - Diverticulosis in the entire examined colon. - Two 1 to 2 mm polyps in the cecum, removed with a cold snare. Resected and retrieved. - The examination was otherwise normal on direct and retroflexion views. Recommendations : - Discharge patient to home. - Resume previous diet. - Continue present medications. - Await pathology results. - Repeat colonoscopy in 5 years for surveillance. - Return to GI office. My findings are described in the full procedure note, which is enclosed. If I can be of further assistance, please feel free to contact me at . Sincerely, Beto Friend, 12/26/2023 7:17:39 AM This report has been signed electronically.
[2023-12-26 07:20] VITALS: BP 113/78; BP 131/79; PULSE 66; RESP 18; O2SAT 93
--- NOTE | 2023-12-26 07:22 | OP.EGD_ITS ---
Patient Name: Stacey Wylie Procedure Date: 12/26/2023 6:21 AM Date of : 1955 Age: 68 Procedure: Upper GI endoscopy Indications: Epigastric abdominal pain, Heartburn Providers: Beto Veras DO Medicines: Monitored Anesthesia Care Patient Profile: This is a 68 year old female. Refer to note in patient chart for documentation of history and physical. Patient has symptoms of chronic epigastric abdominal pain. Complications: No immediate complications. Procedure: Pre-Anesthesia Assessment: - Prior to the procedure, a History and Physical was performed, and patient medications and allergies were reviewed. The patient is competent. The risks and benefits of the procedure and the sedation options and risks were discussed with the patient. All questions were answered and informed consent was obtained. Patient identification and proposed procedure were verified by the physician in the pre-procedure area. Mental Status Examination: alert and oriented. Airway Examination: normal oropharyngeal airway and neck mobility. Respiratory Examination: clear to auscultation. CV Examination: normal. Prophylactic Antibiotics: The patient does not require prophylactic antibiotics. Prior Anticoagulants: The patient has taken no anticoagulant or antiplatelet agents. ASA Grade Assessment: II - A patient with mild systemic disease. After reviewing the risks and benefits, the patient was deemed in satisfactory condition to undergo the procedure. The anesthesia plan was to use monitored anesthesia care (MAC). Immediately prior to administration of medications, the patient was re-assessed for adequacy to receive sedatives. The heart rate, respiratory rate, oxygen saturations, blood pressure, adequacy of pulmonary ventilation, and response to care were monitored throughout the procedure. The physical status of the patient was re-assessed after the procedure. After obtaining informed consent, the endoscope was passed under direct vision. Throughout the procedure, the patient's blood pressure, pulse, and oxygen saturations were monitored continuously. The colonoscope was introduced through the mouth, and advanced to the second part of duodenum. The upper GI endoscopy was accomplished without difficulty. The patient tolerated the procedure well. Scope In: 6:55:26 AM Scope Out: 6:59:38 AM Total Procedure Duration Time 0 hours 4 minutes 12 seconds Findings: LA Grade A (one or more mucosal breaks less than 5 mm, not extending between tops of 2 mucosal folds) esophagitis with no bleeding was found 38 to 40 cm from the incisors. Biopsies were taken with a cold forceps for histology. Verification of patient identification for the specimen was done. Estimated blood loss was minimal. Patchy mildly erythematous mucosa without bleeding was found in the gastric body. Biopsies were taken with a cold forceps for histology. Verification of patient identification for the specimen was done. Estimated blood loss was minimal. Biopsies were taken with a cold forceps for Helicobacter pylori testing. Verification of patient identification for the specimen was done. Estimated blood loss was minimal. Patchy mildly erythematous mucosa without active bleeding and with no stigmata of bleeding was found in the duodenal bulb. Biopsies were taken with a cold forceps for histology. Verification of patient identification for the specimen was done. Estimated blood loss was minimal. Impression: - LA Grade A reflux esophagitis with no bleeding. Biopsied. - Erythematous mucosa in the gastric body. Biopsied. - Erythematous duodenopathy. Biopsied. Recommendation: - Discharge patient to home. - Resume previous diet. - Continue present medications. - Await pathology results. Procedure Code(s): --- Professional --- 84719, Esophagogastroduodenoscopy, flexible, transoral; with biopsy, single or multiple CPT copyright 2021 [employer]. All rights reserved. The codes documented in this report are preliminary and upon fur dry cleaner hand review may be revised to meet current compliance requirements. Beto Veras DO 12/26/2023 7:21:53 AM This report has been signed electronically. Number of Addenda: 0 Note Initiated On: 12/26/2023 6:21 AM
--- NOTE | 2023-12-26 07:22 | OP.CCLET_ITS ---
12/26/2023 Janis Lehman MD [address] [place] [address] [place] [address] Re : Upper GI endoscopy procedure for Stacey Wylie Dear Dr. Lehman This procedure was performed on Tuesday, December 26, 2023. My impressions and recommendations are as follows: Impressions : - LA Grade A reflux esophagitis with no bleeding. Biopsied. - Erythematous mucosa in the gastric body. Biopsied. - Erythematous duodenopathy. Biopsied. Recommendations : - Discharge patient to home. - Resume previous diet. - Continue present medications. - Await pathology results. My findings are described in the full procedure note, which is enclosed. If I can be of further assistance, please feel free to contact me at . Sincerely, Beto Veras, 12/26/2023 7:21:53 AM This report has been signed electronically.
[2023-12-26 07:30] VITALS: BP 113/78; BP 135/75; PULSE 66; RESP 18; O2SAT 93
[2023-12-26 07:34] VITALS: BP 113/78; BP 131/61; PULSE 65; RESP 18; TEMP 37; O2SAT 94
[2023-12-26 08:00] VITALS: BP 113/78
== END 2023-12-26 08:07 | disposition home or self-care (01) ==
LOC: EN 05:18 → AC 05:32
PROVIDERS: PCP Internal Medicine; Referring Provider Internal Medicine; Visit Provider Internal Medicine Gastroenterology
PROC: 0DJD8ZZ Inspection of Lower Intestinal Tract, Via Natural or Artificial Opening Endoscopic (ICD-10-PCS; CPT 45378; principal; 2023-12-26 06:25)
DX: Z12.11 Encounter for screening for malignant neoplasm of colon (principal); K21.00 Gastro-esophageal reflux disease with esophagitis, without bleeding; K57.30 Diverticulosis of large intestine without perforation or abscess without bleeding; F41.9 Anxiety disorder, unspecified; F32.A Depression, unspecified; I25.10 Atherosclerotic heart disease of native coronary artery without angina pectoris; I10 Essential (primary) hypertension; D12.0 Benign neoplasm of cecum; K76.0 Fatty (change of) liver, not elsewhere classified; K31.89 Other diseases of stomach and duodenum; Z95.5 Presence of coronary angioplasty implant and graft; Z87.891 Personal history of nicotine dependence; Z79.899 Other long term (current) drug therapy; Z79.82 Long term (current) use of aspirin
CPT/HCPCS: 45385; 43239; 88305; 88341; 88342; J2405

== ENCOUNTER → 2024-02-07 | Outpatient (CLI) | payer MEDICARE, BC, SELFPAY ==
[2024-02-07 12:11] LABS: Prothrombin Time (Protime)PT. 13.5 SECONDS (11.7-14.9)
[2024-02-07 12:23] LABS: Absolute Lymphocyte Count 1.74 X10^3/uL (0.83-4.51); Absolute Neutrophil Count 6.8 X10^3/uL (2.0-7.7); Basophil# 0.07 X10^3/uL; Basophil% 0.7 % (0-1); Eosinophil# 0.12 X10^3/uL; Eosinophils% 1.3 % (0-5); Hematocrit 44.9 % (37-47); Hemoglobin 15.4 g/dL (12.0-15.0); Lymphocyte # 1.74 X10^3/ul (0.83-4.51); Lymphocyte % 18.6 % (19-41); Mean Corp Hgb Conc 34.3 g/dL (32-36); Mean Corpuscular Hgb 31.6 pg (27.0-32.0); Mean Corpuscular Volume 92.2 fL (81-99); Mean Platelet Vol. 8.9 fl (6.2-12.0); Monocyte# 0.59 X10^3/uL; Monocyte% 6.3 % (0-10); NRBC Flagged by Analyzer 0 % (0-5); Neutrophil # 6.79 X10^3/uL (2.7-7.7); Neutrophil % 72.6 % (47-70); Platelet Count 227 K/mm3 (150-450); RBC Distribution Width CV 11.9 % (11.6-14.6); RBC Distribution Width SD 40.6 fl (35.1-43.9); Red Blood Count 4.87 M/mm3 (4.2-5.4); White Blood Count 9.4 K/mm3 (4.4-11.0)
[2024-02-07 12:25] LABS: Vitamin D,25 Hydroxy 55.1 ng/mL
[2024-02-07 12:48] LABS: ALB/GLOB Ratio 0.9 RATIO (0.9-2.4); AST(SGOT) 47 U/L (15-37); Alanine Aminotransfer ALT/SGPT 70 U/L (13-56); Albumin, Serum 3.5 g/dL (3.2-5.0); Alkaline Phosphatase 100 U/L (45-117); Anion Gap 5 (5-15); BUN 20 mg/dL (7-18); BUN/Creat Ratio 28.2 RATIO (10-20); Bilirubin, Direct 0.15 mg/dL (0.00-0.30); Calcium,Total 9.8 mg/dL (8.5-10.1); Chloride 105 mmol/L (98-107); Cholesterol 194 mg/dL (200); Creatinine, Serum 0.71 mg/dL (0.55-1.02); EST Glomerular Filtration Rate 87 mL/min (>60); Est Glom Filt Rate - Afr Amer 105 mL/min (>60); Glucose 125 mg/dL (74-106); High Density Lipoprotein 62 mg/dL; LDH 185 U/L (84-246); Potassium 4.5 mmol/L (3.5-5.1); Protein, Total 7.5 g/dL (6.4-8.2); Sodium Level 138 mmol/L (136-145); Triglycerides 126 mg/dL; Very Low Density Lipoprotein 25 mg/dL (5-40)
[2024-02-08 14:10] LABS: ANTINUCLEAR ANTIBODIES DIRECT Negative (Negative)
== END | disposition home or self-care (01) ==
LOC: BIMLAB 09:23
PROVIDERS: Internal Medicine; PCP Internal Medicine; Referring Provider Physician Assistant Medical; Visit Provider Physician Assistant Medical
DX: K76.0 Fatty (change of) liver, not elsewhere classified (principal); K52.831 Collagenous colitis; K57.92 Diverticulitis of intestine, part unspecified, without perforation or abscess without bleeding; M85.80 Other specified disorders of bone density and structure, unspecified site; I25.10 Atherosclerotic heart disease of native coronary artery without angina pectoris; I10 Essential (primary) hypertension; E78.00 Pure hypercholesterolemia, unspecified
CPT/HCPCS: 36415; 80053; 80061; 82248; 82306; 83615; 85025; 85610; 86038; 86140; 86225; 86235

== ENCOUNTER → 2024-04-23 | Outpatient (CLI) | payer MEDICARE, BC, SELFPAY ==
--- NOTE | 2024-04-23 13:52 | CDU_ITS ---
Reason For Study: S/P Rt CEA Rt. Velocities/BP Lt. Velocities/BP Prox CCA 76.5/13.8 cm/sec. Prox CCA 76.1/10.8 cm/sec. Mid CCA 75.4/16.0 cm/sec. Mid CCA 87.5/14.4 cm/sec. Dist CCA 60.1/13.8 cm/sec. Dist CCA 65.6/14.4 cm/sec. Prox ICA 41.5/11.5 cm/sec. Prox ICA 81.0/23.7 cm/sec. Mid ICA 85.1/24.8 cm/sec. Mid ICA 111.2/29.0 cm/sec. Dist ICA 84.5/27.5 cm/sec. Dist ICA 69.1/21.9 cm/sec. Rt. ICA/CCA = 1.1. Lt. ICA/CCA = 1.3. Prox ECA 139.2/21.7 cm/sec. Prox ECA 82.0/16.3 cm/sec. Rt. Vert. 40.6/10.9 cm/sec. Lt. Vert. 45.3/8.6 cm/sec. Right Extracranial There is homogeneous, smooth atherosclerotic plaque noted in the right common carotid artery. There is heterogeneous, smooth atherosclerotic plaque noted in the right internal carotid artery. There is homogeneous, smooth atherosclerotic plaque noted in the right external carotid artery. Antegrade flow is noted in the right vertebral artery. Left Extracranial There is homogeneous, smooth atherosclerotic plaque noted in the left common carotid artery. There is heterogeneous, irregular atherosclerotic plaque noted in the left internal carotid artery. The left external carotid artery is not well visualized. Antegrade flow is noted in the left vertebral artery. VL/Carotid Duplex Ultrasound Interpretation Summary Mild (<50%) stenosis right extracranial internal carotid. Mild (<50%) stenosis left extracranial internal carotid. Patent and antegrade vertebrals bilaterally. Ordering Physician: Cally Johnson Referring Physician: Janis Lehman Performed By: Alexander Darby RVT
== END | disposition home or self-care (01) ==
LOC: CVS 13:52
PROVIDERS: PCP Internal Medicine; Referring Provider Physician Assistant; Visit Provider Physician Assistant
DX: Z48.812 Encounter for surgical aftercare following surgery on the circulatory system (principal)
CPT/HCPCS: 93880

== ENCOUNTER → 2024-06-11 | Outpatient (CLI) | payer MEDICARE, BC, SELFPAY ==
[2024-06-11 17:05] LABS: Absolute Neutrophil Count 7.9 X10^3/uL (2.0-7.7); Basophil# 0.08 X10^3/uL; Basophil% 0.8 % (0-1); Eosinophil# 0.13 X10^3/uL; Eosinophils% 1.2 % (0-5); Hematocrit 43.5 % (37-47); Hemoglobin 15.4 g/dL (12.0-15.0); Lymphocyte % 15.3 % (19-41); Mean Corp Hgb Conc 35.4 g/dL (32-36); Mean Corpuscular Volume 93.1 fL (81-99); Mean Platelet Vol. 8.8 fl (6.2-12.0); Monocyte# 0.69 X10^3/uL; Monocyte% 6.6 % (0-10); NRBC Flagged by Analyzer 0 % (0-5); Neutrophil % 75.6 % (47-70); Platelet Count 229 K/mm3 (150-450); RBC Distribution Width CV 12.2 % (11.6-14.6); Red Blood Count 4.67 M/mm3 (4.2-5.4); White Blood Count 10.5 K/mm3 (4.4-11.0)
[2024-06-11 17:11] LABS: Prothrombin Time (Protime)PT. 13.5 SECONDS (11.7-14.9); Vitamin D,25 Hydroxy 52.1 ng/mL
[2024-06-11 17:13] LABS: ALB/GLOB Ratio 1.1 RATIO (0.9-2.4); AST(SGOT) 54 U/L (15-37); Alanine Aminotransfer ALT/SGPT 92 U/L (13-56); Albumin, Serum 3.7 g/dL (3.2-5.0); Alkaline Phosphatase 96 U/L (45-117); Anion Gap 6 (5-15); BUN 20 mg/dL (7-18); BUN/Creat Ratio 34.4 RATIO (10-20); Calcium,Total 9.8 mg/dL (8.5-10.1); Chloride 106 mmol/L (98-107); Cholesterol 184 mg/dL (200); Creatinine, Serum 0.58 mg/dL (0.55-1.02); EST Glomerular Filtration Rate 110 mL/min (>60); Est Glom Filt Rate - Afr Amer 133 mL/min (>60); Globulin 3.5 g/dL (2.2-4.2); Glucose 109 mg/dL (74-106); High Density Lipoprotein 63 mg/dL; Potassium 3.8 mmol/L (3.5-5.1); Protein, Total 7.2 g/dL (6.4-8.2); Sodium Level 137 mmol/L (136-145); Triglycerides 184 mg/dL; Very Low Density Lipoprotein 37 mg/dL (5-40)
[2024-06-11 18:12] LABS: Hemoglobin A1c 5.6 % (3.8-5.6)
== END | disposition home or self-care (01) ==
LOC: BIMLAB 14:39
PROVIDERS: PCP Internal Medicine; Referring Provider Internal Medicine; Visit Provider Internal Medicine
DX: M06.9 Rheumatoid arthritis, unspecified (principal); K76.0 Fatty (change of) liver, not elsewhere classified; K52.831 Collagenous colitis; K57.92 Diverticulitis of intestine, part unspecified, without perforation or abscess without bleeding
CPT/HCPCS: 36415; 80053; 80061; 82105; 82306; 83036; 85025; 85610; 86140

== ENCOUNTER 2024-07-07 08:52 | Day surgery (SDC) | payer MEDICARE, BC, SELFPAY ==
[2024-07-07] VITALS (9 sets, daily range): BP systolic 110–166; BP diastolic 67–95; PULSE 80–120; RESP 14–16; TEMP 36.3–36.8; O2SAT 92–97; BMI 35.8
--- NOTE | 2024-07-07 09:03 | HP.PCM_ITS ---
History and Physical Date of Admission: 07/07/24 KESHIA DOWNEY, is a 68 F who presents to the office today for follow up.PCP OV 5.16. with diverticulitis concern. Originally diagnosed with diverticulosis 2013 during screening colonoscopy with subsequent three episodes of diverticulitis with 2 being in the last 6 months. Concern this visit with additional episode. Treated with Augmentin. *[facility] established 04.25.23 previously seen by GI in [place]. Reports diverticulitis several times a year. BM vary between normal consistency without difficulty and looser stools 2-3 times a week, feels these are food triggered. Does not take anything for bowel management. Rx Sulfasalazine US abd/ elastography 05.12.23 Fatty infiltration of liver Liver measures 16cm 7.73 kPa OV 2.15.24- Updates upcoming carotid endarterectomy with Dr. Sparrow Vascular surgeon. About 2-3 times loose BM/day, usually first BM is formed but later may be sudden out, liquid BM, not incontinent with no blood or mucus. No fever. Continues to attempt to eat healthy most. Still working on increasing exercise. Hx knee right knee replacement in 10/2022. Fell 03/2023. Discomfort has improved, but continued stiffness. Plans to increase daily walking. She has appointment with Dr. Sparrow and insurance risk analyst in [place] today. US abd/ elastography 11.19.23- Liver measures 16.9cm Stiffness 6.8 kPa EGD 12.26.23- LA grade A reflux esophagitis with no bleeding, erythematous mucosa in gastric body and duodenum. Colon- Diverticulosis, two polyps in the cecum hyperplastic and TA, Path: chronic gastritis, mild non-specific chronic inflammation in the duodenum OV 6.12.24- Pt well since last visit. Reports her stools aren't as loose as they were. Decreased in urgency. No other GI concerns. 06.11.24- Fib-4 1.6 OV 11.24- Patient well since last visit. Denies abdominal pain. BM are normal 1-2 times a day. No other concerns. ROS Const Constitutional: No fatigue, fever(s) or weight change ENT ENT: No difficulty swallowing Gastro GI: No abdominal pain, belching, bloating, change in bowel habits, change in stool character, coffee ground emesis, constipation, cramping, diarrhea, heartburn, difficulty swallowing, feeling full early, excessive flatus, inc ontinent of stools, Vomiting blood/hematemesis, Blood in stool, loose stools, Black,tarry stools, nausea/dyspepsia, pain with swallowing, vomiting or other Musc Musculoskeletal: No joint pain Skin Skin: No yellowing of the eye or itchy eyes Psych Psychiatric: No anxiety and No depression Endo Endocrine: No fatigue or weight change Aller/Imm Allergy/Immunologic: No itchy eyes Ankur/Lymp Hematologic/Lymphatic: No easy bleeding or easy bruising Exam Const General: cooperative, no acute distress and well developed Orientation: alert, awake and oriented x3 HENMT Head: normal to inspection, normocephalic and atraumatic Ears: hearing grossly normal bilaterally Neck Neck: normal visual inspection, full ROM, no lymphadenopathy and supple Neck mass: No Thyroid: thyroid normal Resp Effort & Inspection: normal respiratory effort and able to speak in complete sentences Auscultation: Bilateral: Clear to Auscultation Cardio Rate: regular rate Rhythm: regular rhythm Heart Sounds: S1 normal and S2 normal GI Palpation: soft (Nontender, no palpable organomegaly) Neuro General: patient alert, patient awake, patient oriented x3, moves all extremities and CN's II-XI intact bilaterally Extrem General: no clubbing, cyanosis or edema Psych Appearance: grossly normal Mental Status: mental status grossly normal Mood: congruent mood Affect: normal affect Assessment and Plan Assessment and Plan (1) 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 Recently completed antibiotic for UTI about 3 to 4 weeks ago She does not have prediabetes or diabetes mellitus. Last A1c 5.6 g%. Last labs, May 2024 reviewed with the patient. She has elevated transaminases AST 54, ALT 92 slightly more than January 2024 Lab work from August and September 2023 reviewed. Liver ultrasound with elastography shows liver size 16.9 cm, fatty infiltration otherwise bile ducts and gallbladder in normal limit. Liver stiffness 6.8 kPa compatible F2 F3 mild to moderate liver fibrosis Metavir score I discussed the risk factors, pathogenesis, natural history complications including cirrhosis and HCC of metabolic dysfunction associated steatotic liver disease, (MASLD) and patient affirmed understanding. There is recently 1 approved FDA medication for NAFLD, Resmitrom (Rezduffra) but medications used for diabetes mellitus and weight loss mainly to metformin, pioglitazone, empagliflozin and GLP-1 agonist like semaglutide, dulaglutide/Trulicity have been found to decrease fatty content and improve fibrosis score found in the research literature. Indication, response rate, benefits, side effects/adverse effects and drug drug interaction of Resmitrom first FDA approved medication for F2 F3 liver fibrosis, MASLD was discussed with the patient with booklet. Questions encouraged and answered. She had agreed to take Rezdiffra proceeded with the paperwork and consent. Follow-up in 3 months (2) Collagenous colitis: Status: Chronic Plan: EGD and colonoscopy on December 26, 2023 impressions : - LA Grade A reflux esophagitis with no bleeding. Distal esophagus biopsy shows polytypic lymphoid aggregates and no evidence of goblet cell metaplasia with focal changes of reflux and GE junction mucosa with chronic inflammation - Erythematous mucosa in the gastric body. Gastric antrum biopsy negative for H. pylori and Biopsy shows chronic gastritis, chronic inflammation - Erythematous duodenopathy. Duodenal biopsy shows nonspecific chronic inflammation and focal gastric metaplasia. Impression: - Diverticulosis in the entire examined colon. - Two 1 to 2 mm polyps in the cecum, removed with a cold snare. Resected and retrieved. - The examination was otherwise normal on direct and retroflexion views. Recommendation: - Repeat colonoscopy in 5 years for surveillance. -Cecal biopsy shows hyperplastic polyp and fragments of tubular adenoma. Patient gets loose bowel movement once in 2 weeks patient does not meet definition criteria of diarrhea. Continue PPI and Carafate. Carafate was given for 1 month. Orders: Orders ABD Limited w/ Elastography 3 Months E66.9 - Obesity, unspecified, K21.9 - Gastro-esophageal reflux disease without esophagitis, K75.81 - Nonalcoholic steatohepatitis (GOYAL) Lipid Profile 3 Months E66.9 - Obesity, unspecified, K21.9 - Gastro-esophageal reflux disease without esophagitis, K75.81 - Nonalcoholic steatohepatitis (GOYAL), K76.0 - Fatty (change of) liver, not elsewhere classified Comprehensive Metabolic Profil 3 Months E66.9 - Obesity, unspecified, K21.9 - Gastro-esophageal reflux disease without esophagitis, K75.81 - Nonalcoholic steatohepatitis (GOYAL) CBC W/Diff, Automated 3 Months D64.9 - Anemia, unspecified, E66.9 - Obesity, unspecified, K21.9 - Gastro-esophageal reflux disease without esophagitis, K75.81 - Nonalcoholic steatohepatitis (GOYAL) I have examined the patient and the H&P has been reviewed. There are no clinical changes since date of exam.
--- NOTE | 2024-07-07 09:17 | PRE.ANES_ITS ---
ASA Classification* ASA Classification ASA Classification: 3 Assessment & Plan Anesthesia* Anesthesia Assessment Anesthesia Assessment: Discussed sedation and/or anesthesia options, risks, benefits, and alternatives with patient/parents/legal guardian/POA. Questions invited. The patient/parents/legal guardian/POA seems to understand and agrees to proceed with anesthesia plan. Reviewed the physical assessment, medical history, allergy history and patient home medications list prior to surgery/procedure/anesthetic and documented any changes. Performed airway and anesthesia risk assessments. Anesthesia Type Anesthesia Type: MAC Anesthesia Focused Assessment* Temperature: 97.5 F Pulse Rate: 120 Blood Pressure: 166/95 Respiratory Rate: 16 Pulse Ox: 96 Airway Assessment Mouth opens: >3 cm Mallampati Score: II Focused Labs Anesthesia Preop lab: CBC WBC 10.5 K/mm3 (4.4-11.0) 06/11/24 14:39 RBC 4.67 M/mm3 (4.2-5.4) 06/11/24 14:39 Hgb 15.4 g/dL (12.0-15.0) H 06/11/24 14:39 Hct 43.5 % (37-47) 06/11/24 14:39 Plt Count 229 K/mm3 (150-450) 06/11/24 14:39 CHEMISTRY Potassium 3.8 mmol/L (3.5-5.1) 06/11/24 14:39 Sodium 137 mmol/L (136-145) 06/11/24 14:39 BUN 20 mg/dL (7-18) H 06/11/24 14:39 Creatinine 0.58 mg/dL (0.55-1.02) 06/11/24 14:39 Glucose 109 mg/dL (74-106) H 06/11/24 14:39 COAG PT 13.5 SECONDS (11.7-14.9) 06/11/24 14:39 Pre-Assessment Diagnosis/Proposed Procedure Planned Operative Procedure(s): egd Anesthesia History Anesthesia History - programmer operator numerical control: Anesthesia History - programmer operator numerical control Hx Hospitalization 09/2023 cartoid artery 07/02/24 14:55 surgery Any Problems With Anesthesia No 07/02/24 14:55 Cholinesterase deficiency No 07/02/24 14:55 You/Your Family Experience No 07/02/24 14:55 fever (hyperthermia) with Relationship Recent Exposure to Contagious No 07/07/24 09:05 Disease Does patient have nerve No 07/02/24 14:55 stimulator Patient instructed to have device shut off --Does patient have Pacemaker No 07/07/24 09:05 or ICD? When Was Last Pacemaker Check QUESTION #4 FULL TEXT: You/Your Family Experience fever (hyperthermia) with Anesthesia Last Oral Intake Last Oral intake: Last Oral Intake NPO since 00:00 07/07/24 09:05 Meds taken in AM with sips of No 07/07/24 09:05 water? Meds patient instructed to take am of surgery PONV PONV - programmer operator numerical control: PONV - programmer operator numerical control Female Yes 07/02/24 14:55 HX of Motion Sickness No 07/02/24 14:55 HX of N/V After Surgery No 07/02/24 14:55 Non-Smoker Yes 07/02/24 14:55 Duration of Surgery greater No 07/02/24 14:55 than 60 minutes Number of Risk Factors 2 07/02/24 14:55 PONV Score Moderate Risk 07/02/24 14:55 Height & Weight Height & Weight: Anesthesia: Height & Weight Height 5 ft 6 in 07/07/24 09:05 Weight: 100.607 kg 07/07/24 09:05 Body Mass Index (BMI) 35.8 07/07/24 09:05 Respiratory Assessment Respiratory Assessment - programmer operator numerical control: Respiratory Tract Infection Hx - programmer operator numerical control Hx Respiratory Tract Infection No 07/02/24 14:55 STOP Sleep Apnea STOP Sleep Apnea - programmer operator numerical control: STOP Sleep Apnea - programmer operator numerical control Hx Hypertension Yes: CONTROLLED WITH MED 07/02/24 14:55 Hx Sleep Apnea No 07/02/24 14:55 CPAP BIPAP Do you snore loudly (louder No 07/02/24 14:55 than talking or can be heard Do you often feel tired/ No 07/02/24 14:55 fatigued/ sleepy during daytime? Has anyone observed you stop No 07/02/24 14:55 breathing during sleep? STOP Results Negative 07/02/24 14:55 QUESTION #5 FULL TEXT : Do you snore loudly (louder than talking or can be heard through closed doors)? 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 Specify any problems Hx of Preganancy in last 3 N/A 07/02/24 14:55 Months Nurse Filling Out Transfusion NBUCHER 07/02/24 14:55 & Questions: Date: 07/02/24 07/02/24 14:55 Time: 14:56 07/02/24 14:55 Patient unable to answer at this time (ie. confused, unrespo /Reproduction History /Reproductive History - programmer operator numerical control: /Reproductive Hx- programmer operator numerical control Hx Now Gestational Age (in weeks): EDC: Hx Hx Para Hx Section SAB No 07/02/24 14:55 PFSH Medical History Obesity (BMI 30-39.9) Mixed incontinence urge and stress History of CVA (cerebrovascular accident) Depression Rheumatoid arthritis Fatty liver Easy bruising Restless legs Heartburn Wears glasses Post-menopausal Alcohol use History of IBS Former smoker Chronic cough Hypertension History of echocardiogram History of stress test Cardiology follow-up encounter BMI 33.0-33.9,adult Right knee pain Preoperative evaluation to rule out surgical contraindication Osteoarthritis Flu vaccine need GERD (gastroesophageal reflux disease) History of echocardiogram Home Medications ?Medication ?Instructions ?Recorded ?Last Taken ?Type aspirin 81 mg chewable tablet 81 mg PO DAILY@0800 BLOOD THINNER 03/22/15 07/04/24 History lactobacillus combination no.8 3 3,000 mmu cells PO QDAY SUPPLEMENT 08/01/17 07/06/24 History billion cell capsule (Adult Probiotic) multivitamin (Daily Multi-Vitamin 1 tab PO QDAY SUPPLEMENT 08/01/17 07/06/24 History tablet) cholecalciferol (vitamin D3) 25 25 mcg PO DAILY SUPPLEMENT 06/15/21 07/06/24 History mcg (1,000 unit) tablet abatacept (with maltose) 250 mg 250 ml IV QMONTH RA 12/14/21 09/12/23 History intravenous solution (Orencia (with maltose)) calcium 315 mg (as 1 tab PO BID SUPPLEMENT 12/14/21 07/06/24 History citrate)-vitamin D3 5 mcg (200 unit) tablet (Calcium Citrate + D) nitroglycerin 0.4 mg sublingual 0.4 mg sublingual Q5-15M PRN chest 03/23/22 Unknown Rx tablet (Nitrostat) pain #25 tabs blood pressure monitor #1 ea 04/27/23 Unknown Rx blood pressure monitor #1 ea 04/27/23 Unknown Rx citalopram 20 mg tablet 20 mg PO DAILY ANTIDEPRESSANT #90 08/23/23 07/06/24 Rx tabs vitamin E succinate 268 mg (400 268 mg PO DAILY SUPPLEMENT 09/21/23 07/06/24 History unit) tablet lisinopril 2.5 mg tablet 2.5 mg PO QHS BP #90 tabs 01/01/24 07/06/24 Rx metoprolol tartrate 25 mg tablet 25 mg PO BID BP #180 tabs 01/01/24 07/04/24 Rx pantoprazole 40 mg tablet,delayed 40 mg PO DAILY #90 tabs 06/24/24 07/04/24 Rx release resmetirom 100 mg tablet 100 mg PO QDAY #30 tabs 06/30/24 Unknown Rx (Rezdiffra) atorvastatin 80 mg tablet 80 mg PO DAILY CHOLESTEROL 07/02/24 07/06/24 History Allergy/AdvReac Type Severity Reaction Status Date / Time No Known Allergies Allergy Verified 07/07/24 09:03 Family History Father CAD (coronary artery disease) Hx of CABG Sister Hyperlipemia, mixed Surgical History History of colonoscopy History of esophagogastroduodenoscopy (EGD) History of carotid endarterectomy History of coronary artery stent placement Hx of breast reduction, elective History of total right knee replacement (~2022) Status post trigger finger release History of percutaneous transluminal coronary angioplasty (~01/08/12) History of left heart catheterization Social History Smoking Status: Former smoker quit date: 07/30/05 Tobacco: How many years used: 20 alcohol intake: current alcohol intake frequency: holidays/special occasions only Alcohol type: wine substance use type: does not use caffeine: Yes Type: coffee and tea what type of physical activity do you participate in: walking frequency: daily duration: 15-30 minutes/day seatbelt use: always do you feel safe at home: Yes Review of Systems (Anesthesia) ROS Narrative System reviewed and no additional complaints, except as documented.
--- NOTE | 2024-07-07 10:00 | EGD_PTH ---
PATIENT: SUNDAR DOWNEY LOC: EN U#:[id number] AGE/SX: 68/F ROOM: RE07/07/[address]: Dr. Beto Veras DO : 1955 BED: DIS: 07/07/2024 SPEC #: [id number] RECD: 07/07/24 12:29 STATUS: ZAIRA RENadeem #: [id number] SARATH: 07/07/24 10:[address]: Beto Veras DEPT: SURGICAL PATHOLOGY RECD BY: Bernard Suarez ENTERED: 07/07/24 12:56 SP TYPE: EGD BIOPSY HERNANDEZ DR: Dr. Janis Lehman MD Tissues: A - Esophagus, NOS B - Gastric mucous membrane Procedures: Special Stain Group I Surgery Specimen Level IV Alcian Blue/PAS (control) HEADER OPERATION: EGD with biopsy and gold probe PRE-OP DIAGNOSIS: Abdominal pain TISSUE SUBMITTED: A- Distal esophagus biopsy, B- Gastric ulcer biopsy MICROSCOPIC DIAGNOSIS A. Distal esophagus, biopsy: Gastroesophageal junction mucosa with mild chronic inflammation. Focal changes of reflux. No evidence of goblet cell metaplasia. See comment. B. Gastric ulcer, biopsy: Chronic gastritis. Focal mucosal denudation suggestive of ulcer. See comment. 07/08/2024 COMMENT A. Alcian blue/PAS stain with matched control supports the above diagnosis. B. The results of immunohistochemistry for Helicobacter pylori will be reported separately ([id number]). MICROSCOPIC DESCRIPTION Slides are reviewed. GROSS DESCRIPTION A. Received in fixative is one container labeled with the patient's name and designated Distal esophagus biopsy. The specimen consists of two irregular fragments of light almaraz soft tissue that in aggregate measure 0.7 x 0.5 x 0.1 cm. The specimen is totally submitted in one cassette. B. Received in fixative is one container labeled with the patient's name and designated Gastric ulcer. The specimen consists of two irregular fragments of light almaraz soft tissue that in aggregate measure 0.8 x 0.3 x 0.1 cm. The specimen is totally submitted in one cassette. 07/07/2024 TC:3 CPT:99150x4,48231
--- NOTE | 2024-07-07 10:00 | IMM_PTH ---
PATIENT: SUNDAR DOWNEY LOC: EN U#:[id number] AGE/SX: 68/F ROOM: RE07/07/[address]: Dr. Beto Veras DO : 1955 BED: DIS: 07/07/2024 SPEC #: [id number] RECD: 07/07/24 13:43 STATUS: ZAIRA REQ #: [id number] SARATH: 07/07/24 10:[address]: Beto Veras DEPT: IMMUNOHISTOCHEMISTRY RECD BY: Jorge Truong ENTERED: 07/07/24 13:43 SP TYPE: IMMUNO OTHR DR: Dr. Janis Lehman MD Tissues: B - Gastric mucous membrane Procedures: H Pylori (initial) PHYSICIAN & [place] [id number] SPECIMEN INFORMATION: Tissue Source: B- Gastric ulcer biopsy Clinical Info: Abdominal pain Specimen Number: [id number] CPT code: 34683 METHODOLOGY: Deparaffinized sections of prefer/formalin-fixed tissue or PAP/DQ stained slides are incubated with monoclonal/polyclonal antibodies/oligonucleotide probes. Localization is made via biotin free immunoperoxidase method. Appropriate controls are performed and reacted as expected. Results on target cell population are indicated in the following table: RESULTS: ANTIBODY / CLONE RESULT Block B H Pylori (polyclonal) negative These tests were developed and their performance characteristics determined by [facility]. They may not have been cleared or approved by the U.S. Food and Drug Administration. The FDA has determined that such clearance or approval is not necessary. The above immunohistochemical/dualISH markers are ordered and reviewed by the Pathologist. INTERPRETATION: B. Gastric ulcer, biopsy: Negative for Helicobacter pylori organisms. 07/08/2024
--- NOTE | 2024-07-07 10:32 | OP.CCLET_ITS ---
07/07/2024 Janis Lehman MD [address] [place] [address] [place] [address] Re : Upper GI endoscopy procedure for Stacey Wylie Dear Dr. Lehman This procedure was performed on Sunday, July 07, 2024. My impressions and recommendations are as follows: Impressions : - Z-line irregular, 40 cm from the incisors. Biopsied. - Oozing gastric ulcer with a visible vessel. Treated with a heater probe. Biopsied. - Normal second portion of the duodenum. Recommendations : - Discharge patient to home. - Resume previous diet. - The patient is not currently taking anticoagulant or antiplatelet agents x 2 weeks - Carafate 1 g p.o. twice daily x 1 month My findings are described in the full procedure note, which is enclosed. If I can be of further assistance, please feel free to contact me at . Sincerely, Beto Veras, 07/07/2024 10:31:34 AM This report has been signed electronically.
--- NOTE | 2024-07-07 10:32 | OP.EGD_ITS ---
Patient Name: Stacey Wylie Procedure Date: 07/07/2024 10:14 AM Date of : 1955 Age: 68 Procedure: Upper GI endoscopy Indications: Epigastric abdominal pain, Functional Dyspepsia, Heartburn Providers: Beto Veras DO Referring MD: Janis Lehman MD Medicines: Monitored Anesthesia Care Patient Profile: This is a 68 year old female. Refer to note in patient chart for documentation of history and physical. Patient has symptoms of acute abdominal cramping, acute epigastric abdominal pain, acute dyspepsia and chronic heartburn. Complications: No immediate complications. Procedure: Pre-Anesthesia Assessment: - Prior to the procedure, a History and Physical was performed, and patient medications and allergies were reviewed. The patient is competent. The risks and benefits of the procedure and the sedation options and risks were discussed with the patient. All questions were answered and informed consent was obtained. Patient identification and proposed procedure were verified by the physician in the pre-procedure area. Mental Status Examination: alert and oriented. Airway Examination: normal oropharyngeal airway and neck mobility. Respiratory Examination: clear to auscultation. CV Examination: normal. Prophylactic Antibiotics: The patient does not require prophylactic antibiotics. Prior Anticoagulants: The patient has taken no anticoagulant or antiplatelet agents except for NSAID medication. ASA Grade Assessment: II - A patient with mild systemic disease. After reviewing the risks and benefits, the patient was deemed in satisfactory condition to undergo the procedure. The anesthesia plan was to use monitored anesthesia care (MAC). Immediately prior to administration of medications, the patient was re-assessed for adequacy to receive sedatives. The heart rate, respiratory rate, oxygen saturations, blood pressure, adequacy of pulmonary ventilation, and response to care were monitored throughout the procedure. The physical status of the patient was re-assessed after the procedure. After obtaining informed consent, the endoscope was passed under direct vision. Throughout the procedure, the patient's blood pressure, pulse, and oxygen saturations were monitored continuously. The gastroscope was introduced through the mouth, and advanced to the second part of duodenum. The upper GI endoscopy was accomplished without difficulty. The patient tolerated the procedure well. Scope In: Scope Out: 10:24:13 AM Findings: The Z-line was irregular and was found 40 cm from the incisors. Biopsies were taken with a cold forceps for histology. One oozing cratered gastric ulcer with a visible vessel was found in the gastric body. The lesion was 9 mm in largest dimension. Coagulation for hemostasis using heater probe was successful. Biopsies were taken with a cold forceps for histology. Verification of patient identification for the specimen was done. Estimated blood loss was minimal. The second portion of the duodenum was normal. Impression: - Z-line irregular, 40 cm from the incisors. Biopsied. - Oozing gastric ulcer with a visible vessel. Treated with a heater probe. Biopsied. - Normal second portion of the duodenum. Recommendation: - Discharge patient to home. - Resume previous diet. - The patient is not currently taking anticoagulant or antiplatelet agents x 2 weeks - Carafate 1 g p.o. twice daily x 1 month Procedure Code(s): --- Professional --- 62381, 59, Esophagogastroduodenoscopy, flexible, transoral; with control of bleeding, any method 50770, 51, Esophagogastroduodenoscopy, flexible, transoral; with biopsy, single or multiple CPT copyright 2021 [employer]. All rights reserved. The codes documented in this report are preliminary and upon commercial diver review may be revised to meet current compliance requirements. Beto Veras DO 07/07/2024 10:31:34 AM This report has been signed electronically. Number of Addenda: 0 Note Initiated On: 07/07/2024 10:14 AM
--- NOTE | 2024-07-07 10:36 | PCM.POST.ANE ---
Anesthesia: Postop Eval I Current Vital Signs Temperature: 98.2 F Pulse Rate: 82 Blood Pressure: 114/67 Respiratory Rate: 16 Pulse Ox: 93 Oxygen Delivery Method: Room Air Assessment Airway patent: Yes Spontaneous unlabored respirations: Yes Mental status: Asleep nausea: No Vomiting: No Anesthesia Complication: No Fluid Hydration Crystalloid volume administer (ml): 40 Total IV fluid infused: 40 Progress Note Anesthesia document: Postop Eval 1 completed: Yes
[2024-07-07] MEDS: Pantoprazole Sodium 40 MG in 0.9% Normal Saline (100mL MB+) 100 ML 330 MG IV (11:08)
--- NOTE | 2024-07-07 17:47 | PCM.POSTANE2 ---
Anesthesia Postop Eval I Sum Postop Eval Completion status Anesthesia document: Postop Eval 1 completed: Yes Anesthesia Postop Eval I Summary Anesthesia Postop Eval I Summary: Anesthesia Postop Eval I: Assessment Summary Airway patent Yes 07/07/24 10:37 [email or web address] Spontaneous unlabored Yes 07/07/24 10:37 [email or web address] respirations Mental status Asleep 07/07/24 10:37 [email or web address] nausea No 07/07/24 10:37 [email or web address] Vomiting No 07/07/24 10:37 [email or web address] Anesthesia Postop Eval I: Fluid Summary Crystalloid volume administer 40 07/07/24 10:37 [email or web address] (ml) Colloids volume administered ( ml) Blood Product volume administered (ml) Total IV fluid infused 40 07/07/24 10:37 [email or web address] Anesthesia Postop Eval I: Summary Notes Anesthesia Complication No 07/07/24 10:37 [email or web address] Anesthesia Complication Comment: Post-operative progress note Anesthesia: Postop Eval II Evaluation Mental status: Awake Pain Level: 0 nausea: No Vomiting: No
== END 2024-07-07 12:00 | disposition home or self-care (01) ==
LOC: EN 08:53 → AC 08:54
PROVIDERS: PCP Internal Medicine; Referring Provider Internal Medicine; Visit Provider Internal Medicine Gastroenterology
PROC: 0DJ08ZZ Inspection of Upper Intestinal Tract, Via Natural or Artificial Opening Endoscopic (ICD-10-PCS; CPT 43235; principal; 2024-07-07 09:55)
DX: K29.51 Unspecified chronic gastritis with bleeding (principal); K75.81 Nonalcoholic steatohepatitis (NASH); K52.831 Collagenous colitis; K21.00 Gastro-esophageal reflux disease with esophagitis, without bleeding; Z79.899 Other long term (current) drug therapy; I25.10 Atherosclerotic heart disease of native coronary artery without angina pectoris; I10 Essential (primary) hypertension; E78.2 Mixed hyperlipidemia; K57.92 Diverticulitis of intestine, part unspecified, without perforation or abscess without bleeding; Z95.5 Presence of coronary angioplasty implant and graft
CPT/HCPCS: 43255; 43239; 88305; 88312; 88342; A4216; J2405

== ENCOUNTER → 2024-07-08 | Outpatient (CLI) | payer MEDICARE, BC, SELFPAY ==
[2024-07-08 14:38] LABS: Mucous, Urine 0 SEEN /hpf (<or=2+)
[2024-07-08 15:27] LABS: Color, Urine Yellow (Yellow); Glucose, Dipstick Normal (Normal); Ketone-Dipstick Negative (Negative); Leukocyte Esterase-Dipstick 25 /ul (Negative); Nitrite-Dipstick Negative (Negative); Occult Blood-Urine Negative /ul (Negative); Protein-Dipstick 15 mg/dl (Negative); Specific Gravity, Urine 1.015 (1.002-1.030); Urine Bilirubin Dipstick Negative (Negative); Urine Clarity Sl. Cloudy (Clear); Urine Urobilinogen Normal (Normal)
[2024-07-08 16:08] LABS: Bacteria 1+ /hpf (None Seen); Hyaline Cast 0-5 SEEN /lpf (0-5); Red Blood Cells-Urine 0-5 SEEN /hpf (0-5); Squamous Epithelial Cells - UA 5-10 SEEN /hpf (5-10); Transitional Epithelial - Ur 0-5 SEEN /hpf (0-5); White Blood Cells 5-10 SEEN /hpf (0-5)
== END | disposition home or self-care (01) ==
LOC: BIMLAB 13:18
PROVIDERS: PCP Internal Medicine; Referring Provider Internal Medicine; Visit Provider Internal Medicine
DX: R30.0 Dysuria (principal)
CPT/HCPCS: 81001; 87086; 87088; 87186

== ENCOUNTER → 2024-09-15 | Outpatient (CLI) | payer MEDICARE, BC, SELFPAY ==
--- NOTE | 2024-09-15 09:53 | US_ITS ---
PROCEDURE: ABD LIMITED W/ ELASTOGRAPHY REASON FOR EXAM: Abnormal liver function tests. Hepatic fibrosis. COMPARISON: None. Comparison is made with prior study dated November 19, 2023. TECHNIQUE: Right upper quadrant abdominal ultrasound. Rekha ElastQ Imaging shear wave elastography for non-invasive assessment of liver tissue stiffness. Rekha EPIQ Elite. FINDINGS: LIVER: Size: Enlarged (hepatomegaly) Length: 17.9 cm Echotexture: Diffusely echogenic suggesting fatty infiltration Contour: Normal Lesions: None identified Elastography: EQI Med: 9.83 kPa EQI Med Peter: 1.8 m/s IQR/Med: 26 %* GALLBLADDER: Normal COMMON BILE DUCT: Normal it measures 3.1 cm.. PANCREAS: Limited visualization of the pancreas. Visualized portions of the right kidney are unremarkable. 2 tiny nonobstructive intrarenal calculi are seen. No right upper quadrant ascites. The spleen measures 11.3 cm x 5.3 cm x 4.9 cm. US/ABD Limited w/ Elastography IMPRESSION: MODERATE TO SEVERE HEPATIC FIBROSIS Reference Values: SRU <1.37 m/s (5.7kPa): No to mild fibrosis 1.37 m/s - 2.2 m/s: Moderate to severe fibrosis >2.2 m/s (15kPa): Significant fibrosis / cirrhosis METAVIR Score F2 or higher: 1.34 m/s (5.7kPa) F3 or higher: 1.55 m/s (7.3kPa) F4: 1.80 m/s (10kPa) * If the IQR/Med is >30%, the variance in the measurements is a large and the a ccuracy of the measurement may be in question. Reading Location: [id number]
== END | disposition home or self-care (01) ==
LOC: US 09:51
PROVIDERS: PCP Internal Medicine; Referring Provider Internal Medicine; Visit Provider Internal Medicine
DX: K75.81 Nonalcoholic steatohepatitis (NASH) (principal); E66.9 Obesity, unspecified; K21.9 Gastro-esophageal reflux disease without esophagitis
CPT/HCPCS: 76705; 76981

== ENCOUNTER → 2024-09-17 | Outpatient (CLI) | payer MEDICARE, BC, SELFPAY | END | disposition home or self-care (01) | LOC: SL 11:20 | PROVIDERS: PCP Internal Medicine; Referring Provider Internal Medicine; Visit Provider Internal Medicine | DX: G47.10 Hypersomnia, unspecified (principal) | CPT/HCPCS: 95806 ==

== ENCOUNTER → 2024-11-10 | Outpatient (CLI) | payer MEDICARE, BC, SELFPAY ==
--- NOTE | 2024-11-10 13:47 | CDU_ITS ---
Reason For Study Reason For Study: S/P Right CEA Rt. Velocities/BP Lt. Velocities/BP Prox CCA 74/11.6 cm/sec. Prox CCA 75.1/11.3 cm/sec. Mid CCA 62.6/11.6 cm/sec. Mid CCA 55.3/6.9 cm/sec. Dist CCA 59.8/12.6 cm/sec. Dist CCA 53.1/14.6 cm/sec. Prox ICA 40.1/8.8 cm/sec. Prox ICA 70.2/19.5 cm/sec. Mid ICA 57/18.6 cm/sec. Mid ICA 77.2/18.7 cm/sec. Dist ICA 79/18.8 cm/sec. Dist ICA 62.1/17.9 cm/sec. Rt. ICA/CCA = 1.26. Lt. ICA/CCA = 1.40. Prox ECA 143/18.8 cm/sec. Prox ECA 89.4/5.8 cm/sec. Rt. Vert. 52/11.3 cm/sec. Lt. Vert. 47.4/10.7 cm/sec. Right Extracranial There is homogeneous, smooth atherosclerotic plaque noted in the right common carotid artery. There is homogeneous, smooth atherosclerotic plaque noted in the right internal carotid artery. There is homogeneous, smooth atherosclerotic plaque noted in the right external carotid artery. Antegrade flow is noted in the right vertebral artery. Left Extracranial There is homogeneous, smooth atherosclerotic plaque noted in the left common carotid artery. There is heterogeneous, irregular atherosclerotic plaque noted in the left internal carotid artery. There is intimal thickening but no significant atherosclerotic plaque noted in the left external carotid artery. Antegrade flow is noted in the left vertebral artery. Procedure Carotid Duplex 45043. This is a Carotid Duplex examination using B-mode, color flow and specral Doppler. The study was technically difficult. Exam performed in department. VL/Carotid Duplex Ultrasound Interpretation Summary Mild (<50%) stenosis right extracranial internal carotid. Mild (<50%) stenosis left extracranial internal carotid. Patent and antegrade vertebrals bilaterally. Ordering Physician: Cally Johnson Referring Physician: Janis Lehman Performed By: Jessa Richardson RVT
== END | disposition home or self-care (01) ==
LOC: CVS 13:47
PROVIDERS: PCP Internal Medicine; Referring Provider Physician Assistant; Visit Provider Physician Assistant
DX: Z48.812 Encounter for surgical aftercare following surgery on the circulatory system (principal)
CPT/HCPCS: 93880

== ENCOUNTER → 2024-11-14 | Outpatient (CLI) | payer MEDICARE, BC, SELFPAY | END | disposition home or self-care (01) | LOC: SL 19:58 | PROVIDERS: PCP Internal Medicine; Referring Provider Internal Medicine; Visit Provider Internal Medicine | DX: G47.33 Obstructive sleep apnea (adult) (pediatric) (principal) | CPT/HCPCS: 95811 ==

== ENCOUNTER → 2024-11-22 | Outpatient (CLI) | payer MEDICARE, BC, SELFPAY ==
--- NOTE | 2024-11-22 11:25 | US_ITS ---
EXAM: US Retroperitoneal Limited, Renal CLINICAL INDICATION: UTI TECHNIQUE: Real-time limited ultrasound of the retroperitoneum with image documentation. COMPARISON: No relevant prior studies available. FINDINGS: RIGHT KIDNEY: Unremarkable. No stones. No hydronephrosis. The right kidney measures 12.4 x 5.5 x 4.5 cm. LEFT KIDNEY: Unremarkable. No stones. No hydronephrosis. The left kidney measures 10.9 x 5.2 x 5.8 cm. BLADDER: Urinary bladder appears normal for size of the distension. Prevoid volume 78.8 cc. US/Kidney and Bladder IMPRESSION: No acute findings in the retroperitoneum. Reading Location: [id number]
== END | disposition home or self-care (01) ==
LOC: US 11:24
PROVIDERS: PCP Internal Medicine; Referring Provider Urology; Visit Provider Urology
DX: N39.0 Urinary tract infection, site not specified (principal)
CPT/HCPCS: 76770

== ENCOUNTER 2024-12-25 05:59 | Day surgery (SDC) | payer MEDICARE, BC, SELFPAY ==
--- NOTE | 2024-12-24 08:39 | EKG12_ITS ---
Test Reason : PREOP Blood Pressure : */* mmHG Vent. Rate : 70 BPM Atrial Rate : 70 BPM P-R Int : 164 ms QRS Dur : 68 ms QT Int : 400 ms P-R-T Axes : 47 14 28 degrees QTcB Int : 432 ms Sinus rhythm with occasional Premature ventricular complexes Otherwise normal ECG Confirmed by FRANCESCA CEDEÑO ([id number]), book editor RHETT GALVEZ ([id number]) on 12/25/2024 10:01:58 AM Referred By: Treva Dia Confirmed By: FRANCESCA CEDEÑO
[2024-12-24 09:30] LABS: Hematocrit 43.9 % (37-47); Hemoglobin 15.4 g/dL (12.0-15.0); Mean Corp Hgb Conc 35.1 g/dL (32-36); Mean Corpuscular Hgb 33.1 pg (27.0-32.0); Mean Corpuscular Volume 94.4 fL (81-99); Mean Platelet Vol. 8.6 fl (6.2-12.0); Platelet Count 184 K/mm3 (150-450); RBC Distribution Width CV 12.4 % (11.6-14.6); RBC Distribution Width SD 42.6 fl (35.1-43.9); Red Blood Count 4.65 M/mm3 (4.2-5.4); White Blood Count 7.9 K/mm3 (4.4-11.0)
[2024-12-24 09:38] LABS: Prothrombin Time (Protime)PT. 13.3 SECONDS (11.7-14.9)
[2024-12-24 09:39] LABS: Partial Thromboplast Time 29.4 Seconds (24.1-36.2)
[2024-12-24 11:00] LABS: Anion Gap 10 (5-15); BUN 15 mg/dL (4-19); BUN/Creat Ratio 27.4 RATIO (10-20); Calcium,Total 9.9 mg/dL (7.6-11.0); Carbon Dioxide 24.8 mmol/L (21.0-32.0); Chloride 103 mmol/L (98-108); Creatinine, Serum 0.56 mg/dL (0.70-1.20); EST Glomerular Filtration Rate 99 (>60); Glucose 120 mg/dL (70-99); Potassium 4.9 mmol/L (3.3-5.1); Sodium Level 138 mmol/L (133-145)
[2024-12-24 12:39] LABS: AST(SGOT) 83 U/L (<=31); Alanine Aminotransfer ALT/SGPT 120 U/L (<=34); Albumin, Serum 4.2 g/dL (3.4-4.8); Alkaline Phosphatase 104 U/L (35-104); Globulin 2.9 g/dL (2.2-4.2); Protein, Total 7.1 g/dL (5.9-8.4); Total Bilirubin 0.48 mg/dL (0.00-1.30)
--- NOTE | 2024-12-24 15:33 | PAT.ANE_ITS ---
Pre-Assessment Diagnosis/Proposed Procedure Planned Operative Procedure(s): CYSTO BLADDER BIOPSY FULGERATION Anesthesia History Anesthesia History - chronic disease epidemiologist: Anesthesia History - chronic disease epidemiologist Hx Hospitalization No 12/17/24 15:47 Any Problems With Anesthesia No 12/17/24 15:47 Cholinesterase deficiency No 12/17/24 15:47 You/Your Family Experience No 12/17/24 15:47 fever (hyperthermia) with Relationship Recent Exposure to Contagious No 07/07/24 09:05 Disease Does patient have nerve No 12/17/24 15:47 stimulator Patient instructed to have device shut off --Does patient have Pacemaker or ICD? When Was Last Pacemaker Check QUESTION #4 FULL TEXT: You/Your Family Experience fever (hyperthermia) with Anesthesia Last Oral Intake Last Oral intake: Last Oral Intake NPO since Meds taken in AM with sips of water? Meds patient instructed to take am of surgery PONV PONV - chronic disease epidemiologist: PONV - chronic disease epidemiologist Female Yes 12/17/24 15:47 HX of Motion Sickness No 12/17/24 15:47 HX of N/V After Surgery No 12/17/24 15:47 Non-Smoker Yes 12/17/24 15:47 Duration of Surgery greater Yes 12/17/24 15:47 than 60 minutes Number of Risk Factors 3 12/17/24 15:47 PONV Score Moderate Risk 12/17/24 15:47 Height & Weight Height & Weight: Anesthesia: Height & Weight Height 5 ft 6 in 11/26/24 13:04 Respiratory Assessment Respiratory Assessment - chronic disease epidemiologist: Respiratory Tract Infection Hx - chronic disease epidemiologist Hx Respiratory Tract Infection No 12/17/24 15:47 STOP Sleep Apnea STOP Sleep Apnea - chronic disease epidemiologist: STOP Sleep Apnea - chronic disease epidemiologist Hx Hypertension Yes: CONTROLLED WITH MEDS 12/17/24 15:47 Hx Sleep Apnea Yes 12/17/24 15:47 CPAP Yes 12/17/24 15:47 BIPAP No 12/17/24 15:47 Do you snore loudly (louder than talking or can be heard Do you often feel tired/ fatigued/ sleepy during daytime? Has anyone observed you stop breathing during sleep? STOP Results Positive 12/17/24 15:47 QUESTION #5 FULL TEXT : Do you snore loudly (louder than talking or can be heard through closed doors)? 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 Specify any problems Hx of Preganancy in last 3 No 12/17/24 15:47 Months Nurse Filling Out Transfusion DSCHRIBER 12/17/24 15:47 & Questions: Date: 12/17/24 12/17/24 15:47 Time: 15:48 12/17/24 15:47 Patient unable to answer at this time (ie. confused, unrespo /Reproduction History /Reproductive History - chronic disease epidemiologist: /Reproductive Hx- chronic disease epidemiologist Hx Now No 12/17/24 15:47 Gestational Age (in weeks): EDC: Hx Hx Para Hx Section SAB No 12/17/24 15:47 Active Medications Active Medications: Current Medications Generic Name Dose Route Start Last Admin Trade Name Freq PRN Reason Stop Dose Admin Cefazolin Sodium 2 gm/ Sodium 110 mls @ 150 mls/hr 12/25/24 07:30 Chloride IV 12/25/24 08:13 INTRAOP ONE PFSH Medical History (Updated 12/17/24 @ 15:52 by Lorena Bush) Bladder disease CPAP (continuous positive airway pressure) dependence Gastric reflux Hypersomnolence Obesity (BMI 30-39.9) Mixed incontinence urge and stress History of CVA (cerebrovascular accident) Depression Rheumatoid arthritis Fatty liver Easy bruising Restless legs Wears glasses Post-menopausal Alcohol use History of IBS Former smoker Chronic cough Hypertension History of echocardiogram History of stress test Cardiology follow-up encounter BMI 33.0-33.9,adult Right knee pain Preoperative evaluation to rule out surgical contraindication Osteoarthritis Flu vaccine need GERD (gastroesophageal reflux disease) Home Medications ?Medication ?Instructions ?Recorded ?Last Taken ?Type aspirin 81 mg chewable tablet 81 mg PO DAILY@0800 BLOO D THINNER 03/22/15 1 09/04/23 History lactobacillus combination no.8 3 3,000 mmu cells PO QD AY SUPPLEMENT 08/01/17 07/06/24 History billion cell capsule (Adult Probiotic) multivitamin (Daily Multi-Vitamin 1 tab PO QDAY SUPPLE MENT 08/01/17 07/06/24 History tablet) cholecalciferol (vitamin D3) 25 25 mcg PO DAILY SUPPLE MENT 06/15/21 07/06/24 History mcg (1,000 unit) tablet abatacept (with maltose) 250 mg 250 ml IV QMONTH RA 09/12/23 History intravenous solution (Orencia (with maltose)) calcium 315 mg (as 1 tab PO BID SUPPLEMENT 11/2707/06/24 History citrate)-vitamin D3 5 mcg (200 unit) tablet (Calcium Citrate + D) nitroglycerin 0.4 mg sublingual 0.4 mg sublingual Q5-1 5M PRN chest 03/23/22 Unknown Rx tablet (Nitrostat) pain #25 tabs blood pressure monitor #1 ea 04/27/23 Unknown Rx blood pressure monitor #1 ea 04/27/23 Unknown Rx metoprolol tartrate 25 mg tablet 25 mg PO BID BP #180 tabs 01/01/24 07/04/24 Rx atorvastatin 80 mg tablet 80 mg PO DAILY CHOLESTEROL # 90 tabs 09/05/24 Unknown Rx citalopram 20 mg tablet 20 mg PO DAILY ANTIDEPRESSAN T #90 11/18/24 Unknown Rx tabs tirzepatide (weight loss) 5 mg/0.5 5 mg subcut TU 11/2812/09/24 History mL subcutaneous pen injector vibegron 75 mg tablet (Gemtesa) 75 mg PO DAILY 5 Unknown History lisinopril 2.5 mg tablet 2.5 mg PO QHS BP #90 tabs Unknown Rx pantoprazole 40 mg tablet,delayed 40 mg PO DAILY #90 t abs 12/23/24 Unknown Rx release Allergy/AdvReac Type Severity Reaction Status Date / Time No Known Allergies Allergy Verified 12/17/24 15:44 Family History Father CAD (coronary artery disease) Hx of CABG Sister Hyperlipemia, mixed Surgical History (Updated 12/17/24 @ 15:52 by Lorena Bush) History of colonoscopy History of esophagogastroduodenoscopy (EGD) History of carotid endarterectomy History of coronary artery stent placement Hx of breast reduction, elective History of total right knee replacement (~2022) Status post trigger finger release History of percutaneous transluminal coronary angioplasty (~01/08/12) History of left heart catheterization Social History Smoking Status: Former smoker quit date: 07/30/05 Tobacco: How many years used: 20 alcohol intake: current alcohol intake frequency: holidays/special occasions only Alcohol type: wine substance use type: does not use caffeine: Yes Type: coffee and tea what type of physical activity do you participate in: walking frequency: daily duration: 15-30 minutes/day seatbelt use: always do you feel safe at home: Yes Audit: Pertinent Findings Pertinent Findings EKG Perinent findings: September 27, 2023. Normal sinus rhythm. Septal infarct, age undetermined. Stress test pertinent findings: April 23, 2023. EF is 79%. No ischemic changes seen. No infarct. Echo (EF%) pertinent findings: August 23, 2023. EF is 60%. PASP is 24 mmHg. No aortic stenosis noted. Consult pertinent findings: March 24, 2024. Dr. Lambert. 1. Atherosclerosis [place] coronary arteries without angina?chronic. Status post PTCA/REGGIE of the RCA. Patient denies any anginal symptoms. Blood pressure slightly high in the office today. Will monitor at home and report back. 2. 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 Sparrow. She currently presents with a right visual field deficit. 3. Nonalcoholic fatty liver disease?chronic-may be affected by statin therapy. Also rheumatologic infusions. LFTs are managed through the rheumatoid infusion center. Recommendation Anesthesia Recommendation Anesthesia recommendation: OPTIMIZED for anesthesia
[2024-12-25] VITALS (7 sets, daily range): BP systolic 102–120; BP diastolic 40–67; PULSE 66–73; RESP 16–20; TEMP 36.2; O2SAT 90–95; BMI 35.9
[2024-12-25] MEDS: Lactated Ringers 1,000 ML 15 ML IV (06:53)
--- NOTE | 2024-12-25 06:57 | PRE.ANES_ITS ---
ASA Classification* ASA Classification ASA Classification: 3 (BRANDO, CAD, s/p carotid endartectomy, right eye blindness due to retinal artery occlusion, NAFLD, HTN, GERD) Assessment & Plan Anesthesia* Anesthesia Assessment Anesthesia Assessment: Discussed sedation and/or anesthesia options, risks, benefits, and alternatives with patient/parents/legal guardian/POA. Questions invited. The patient/parents/legal guardian/POA seems to understand and agrees to proceed with anesthesia plan. Reviewed the physical assessment, medical history, allergy history and patient home medications list prior to surgery/procedure/anesthetic and documented any changes. Performed airway and anesthesia risk assessments. Zepbound stopped two weeks ago Anesthesia Type Anesthesia Type: General History Source History Obtained from:: Patient and Chart Anesthesia Focused Assessment* Temperature: 97.2 F Pulse Rate: 66 Blood Pressure: 120/67 Respiratory Rate: 17 Pulse Ox: 95 Oxygen Delivery Method: Room Air Airway Assessment Mouth opens: >3 cm Mallampati Score: II Focused Labs Anesthesia Preop lab: CBC WBC 7.9 K/mm3 (4.4-11.0) 12/24/24 08:57 12/24/24 RBC 4.65 M/mm3 (4.2-5.4) 12/24/24 08:57 12/24/24 Hgb 15.4 g/dL (12.0-15.0) H 12/24/24 08:57 5 Hct 43.9 % (37-47) 12/24/24 08:57 12/24/24 Plt Count 184 K/mm3 (150-450) 12/24/24 08:57 12/24/24 CHEMISTRY Potassium 4.9 mmol/L (3.3-5.1) 12/24/24 08:57 12/24/24 Sodium 138 mmol/L (133-145) 12/24/24 08:57 12/24/24 BUN 15 mg/dL (4-19) 12/24/24 08:57 12/24/24 Creatinine 0.56 mg/dL (0.70-1.20) L 12/24/24 08:57 Glucose 120 mg/dL (70-99) H 12/24/24 08:57 12/24/24 COAG PT 13.3 SECONDS (11.7-14.9) 12/24/24 08:57 Pre-Assessment Diagnosis/Proposed Procedure Planned Operative Procedure(s): CYSTO BLADDER BIOPSY FULGERATION Anesthesia History Anesthesia History - security consultant: Anesthesia History - security consultant Hx Hospitalization No 12/17/24 15:47 Any Problems With Anesthesia No 12/17/24 15:47 Cholinesterase deficiency No 12/17/24 15:47 You/Your Family Experience No 12/17/24 15:47 fever (hyperthermia) with Relationship Recent Exposure to Contagious No 12/25/24 06:50 Disease Does patient have nerve No 12/17/24 15:47 stimulator Patient instructed to have device shut off --Does patient have Pacemaker No 12/25/24 06:50 or ICD? When Was Last Pacemaker Check QUESTION #4 FULL TEXT: You/Your Family Experience fever (hyperthermia) with Anesthesia Last Oral Intake Last Oral intake: Last Oral Intake NPO since 05:30 12/25/24 06:50 Meds taken in AM with sips of Yes 12/25/24 06:50 water? Meds patient instructed to take am of surgery PONV PONV - security consultant: PONV - security consultant Female Yes 12/17/24 15:47 HX of Motion Sickness No 12/17/24 15:47 HX of N/V After Surgery No 12/17/24 15:47 Non-Smoker Yes 12/17/24 15:47 Duration of Surgery greater Yes 12/17/24 15:47 than 60 minutes Number of Risk Factors 3 12/17/24 15:47 PONV Score Moderate Risk 12/17/24 15:47 Height & Weight Height & Weight: Anesthesia: Height & Weight Height 5 ft 6 in 12/25/24 06:50 Weight: 101 kg 12/25/24 06:50 Body Mass Index (BMI) 35.9 12/25/24 06:50 Respiratory Assessment Respiratory Assessment - security consultant: Respiratory Tract Infection Hx - security consultant Hx Respiratory Tract Infection No 12/17/24 15:47 STOP Sleep Apnea STOP Sleep Apnea - security consultant: STOP Sleep Apnea - security consultant Hx Hypertension Yes: CONTROLLED WITH MEDS 12/17/24 15:47 Hx Sleep Apnea Yes 12/17/24 15:47 CPAP Yes 12/17/24 15:47 BIPAP No 12/17/24 15:47 Do you snore loudly (louder than talking or can be heard Do you often feel tired/ fatigued/ sleepy during daytime? Has anyone observed you stop breathing during sleep? STOP Results Positive 12/17/24 15:47 QUESTION #5 FULL TEXT : Do you snore loudly (louder than talking or can be heard through closed doors)? 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 Specify any problems Hx of Preganancy in last 3 No 12/17/24 15:47 Months Nurse Filling Out Transfusion DSCHRIBER 12/17/24 15:47 & Questions: Date: 12/17/24 12/17/24 15:47 Time: 15:48 12/17/24 15:47 Patient unable to answer at this time (ie. confused, unrespo /Reproduction History /Reproductive History - security consultant: /Reproductive Hx- security consultant Hx Now No 12/17/24 15:47 Gestational Age (in weeks): EDC: Hx Hx Para Hx Section SAB No 12/17/24 15:47 Active Medications Active Medications: Current Medications Generic Name Dose Route Start Last Admin Trade Name Freq PRN Reason Stop Dose Admin Cefazolin Sodium 2 gm/ Sodium 110 mls @ 150 mls/hr 12/25/24 07:30 Chloride IV 12/25/24 08:13 INTRAOP ONE Lactated Ringer's 1,000 mls @ 15 mls/hr 12/25/24 06:15 12/25/24 06:53 IV 15 mls/hr .Q48H RUBA Administration PFSH Medical History (Updated 12/17/24 @ 15:52 by Lorena Bush) Bladder disease CPAP (continuous positive airway pressure) dependence Gastric reflux Hypersomnolence Obesity (BMI 30-39.9) Mixed incontinence urge and stress History of CVA (cerebrovascular accident) Depression Rheumatoid arthritis Fatty liver Easy bruising Restless legs Wears glasses Post-menopausal Alcohol use History of IBS Former smoker Chronic cough Hypertension History of echocardiogram History of stress test Cardiology follow-up encounter BMI 33.0-33.9,adult Right knee pain Preoperative evaluation to rule out surgical contraindication Osteoarthritis Flu vaccine need GERD (gastroesophageal reflux disease) Home Medications ?Medication ?Instructions ?Recorded ?Last Taken ?Type aspirin 81 mg chewable tablet 81 mg PO DAILY@0800 BLOO D THINNER 03/22/15 12/19/24 History lactobacillus combination no.8 3 3,000 mmu cells PO QD AY SUPPLEMENT 08/01/17 12/24/24 History billion cell capsule (Adult Probiotic) multivitamin (Daily Multi-Vitamin 1 tab PO QDAY SUPPLE MENT 08/01/17 12/24/24 History tablet) cholecalciferol (vitamin D3) 25 25 mcg PO DAILY SUPPLE MENT 06/15/21 12/24/24 History mcg (1,000 unit) tablet abatacept (with maltose) 250 mg 250 ml IV QMONTH RA 12/04/24 History intravenous solution (Orencia (with maltose)) calcium 315 mg (as 1 tab PO BID SUPPLEMENT 11/2712/24/24 History citrate)-vitamin D3 5 mcg (200 unit) tablet (Calcium Citrate + D) nitroglycerin 0.4 mg sublingual 0.4 mg sublingual Q5-1 5M PRN chest 03/23/22 Unknown Rx tablet (Nitrostat) pain #25 tabs blood pressure monitor #1 ea 04/27/23 Unknown Rx blood pressure monitor #1 ea 04/27/23 Unknown Rx metoprolol tartrate 25 mg tablet 25 mg PO BID BP #180 tabs 01/01/24 12/25/24 Rx atorvastatin 80 mg tablet 80 mg PO DAILY CHOLESTEROL # 90 tabs 09/05/24 12/24/24 Rx citalopram 20 mg tablet 20 mg PO DAILY ANTIDEPRESSAN T #90 11/18/24 12/24/24 Rx tabs tirzepatide (weight loss) 5 mg/0.5 5 mg subcut TU 11/2812/09/24 History mL subcutaneous pen injector vibegron 75 mg tablet (Gemtesa) 75 mg PO DAILY 5 12/24/24 History lisinopril 2.5 mg tablet 2.5 mg PO QHS BP #90 tabs 12/24/24 Rx pantoprazole 40 mg tablet,delayed 40 mg PO DAILY #90 t abs 12/23/24 12/24/24 Rx release Allergy/AdvReac Type Severity Reaction Status Date / Time No Known Allergies Allergy Verified 12/25/24 06:48 Family History Father CAD (coronary artery disease) Hx of CABG Sister Hyperlipemia, mixed Surgical History (Updated 12/17/24 @ 15:52 by Lorena Bush) History of colonoscopy History of esophagogastroduodenoscopy (EGD) History of carotid endarterectomy History of coronary artery stent placement Hx of breast reduction, elective History of total right knee replacement (~2022) Status post trigger finger release History of percutaneous transluminal coronary angioplasty (~01/08/12) History of left heart catheterization Social History Smoking Status: Former smoker quit date: 07/30/05 Tobacco: How many years used: 20 alcohol intake: current alcohol intake frequency: holidays/special occasions only Alcohol type: wine substance use type: does not use caffeine: Yes Type: coffee and tea what type of physical activity do you participate in: walking frequency: daily duration: 15-30 minutes/day seatbelt use: always do you feel safe at home: Yes Review of Systems (Anesthesia) ROS Narrative System reviewed and no additional complaints, except as documented. Physical Exam Const alert, oriented x3 and average body habitus Resp normal respiratory effort, normal air movement and clear to auscultation bilaterally Cardio regular rate, regular rhythm, no murmurs and diaphoretic
--- NOTE | 2024-12-25 07:30 | BLA_PTH ---
PATIENT: SUNDAR DOWNEY LOC: [facility] [place] U#:[id number] AGE/SX: 69/F ROOM: RE12/25/[address]: Dr. Treva Dia MD : 1955 BED: DIS: 12/25/2024 SPEC #: [id number] RECD: 12/25/24 09:29 STATUS: ZAIRA RENadeem #: [id number] SARATH: 12/25/24 07:[address]: Treva Dia DEPT: SURGICAL PATHOLOGY RECD BY: Jorge Truong ENTERED: 12/25/24 10:28 SP TYPE: BLADDER BX OTHR DR: MD Dr. Janis Lagos MD Tissues: A - Urinary bladder, NOS Procedures: Surgery Specimen Level IV HEADER OPERATION: Bladder biopsy fulguration PRE-OP DIAGNOSIS: Chronic UTI, bladder lesions TISSUE SUBMITTED: A- Bladder biopsy MICROSCOPIC DIAGNOSIS A. Bladder, biopsy: * Benign urothelium. * Lamina propria with mild chronic inflammation, negative for neoplasia. * No muscularis propria observed. MICROSCOPIC DESCRIPTION Slides are reviewed. GROSS DESCRIPTION A. Received in formalin in a container labeled with the patient's name, date of , and bladder biopsy are 2 small almaraz-pink fragments of soft tissue each measuring 0.2 x 0.2 x 0.2 cm. Submitted in toto in A1. [facility] 12-25-2024 CPT:16701
--- NOTE | 2024-12-25 08:33 | PCM.POST.ANE ---
Anesthesia: Postop Eval I Current Vital Signs Temperature: 97.1 F Pulse Rate: 70 Blood Pressure: 102/40 Respiratory Rate: 20 Pulse Ox: 90 Oxygen Delivery Method: Room Air Assessment Airway patent: Yes Spontaneous unlabored respirations: Yes Mental status: Awake nausea: No Vomiting: No Anesthesia Complication: No Fluid Hydration Crystalloid volume administer (ml): 300 Total IV fluid infused: 300 Progress Note Anesthesia document: Postop Eval 1 completed: Yes
--- NOTE | 2024-12-25 08:44 | DCINST_ITS ---
Discharge Instructions Diet Discharge Diet: No restrictions Activity Discharge Activity: Return to Normal Activity May resume sexual activity in: No Restrictions Dressing / Incision Call your doctor if you observe: Fever of 101 or Higher, Inability to urinate and Inability to have a bowel movement Follow Up Care Please Follow Up With: Treva Dia MD When: In the office next week. Test Results: Test results from this visit will be discussed in further detail at your follow- up appointment, if applicable. Discharge Plan Admission Attending Provider: Treva Dia Primary Care Provider: Janis Lehman Consulting Providers: Mc Krishnamurthy Instructions Print Language: Upper Sorbian Discharge Orders/Prescriptions Prescriptions: New phenazopyridine 200 mg tablet 200 mg PO TID PRN (Reason: pain) Qty: 30 3RF tramadol 50 mg tablet 50 mg PO Q8H PRN (Reason: pain) 3 Days Qty: 10 0RF Continued multivitamin [Daily Multi-Vitamin] tablet 1 tab PO QDAY Adult Probiotic 3 billion cell capsule 3,000 mmu cells PO QDAY calcium citrate-vitamin D3 [Calcium Citrate + D] 315 mg-5 mcg (200 unit) tablet 1 tab PO BID cholecalciferol (vitamin D3) 25 mcg (1,000 unit) tablet 25 mcg PO DAILY Orencia (with maltose) 250 mg recon soln 250 ml IV QMONTH Rx Instructions: 250 mL intravenously; IV infusion monthly (DME) blood pressure monitor Kit See Rx Instructions .MEDSUPPLY Qty: 1 0RF Rx Instructions: Check blood pressure daily for hypertension I10 (DME) blood pressure monitor Kit See Rx Instructions .MEDSUPPLY Qty: 1 0RF Rx Instructions: Check blood pressure daily for hypertension I10 atorvastatin 80 mg tablet 80 mg PO DAILY Qty: 90 1RF aspirin 81 MG tablet,chewable 81 mg PO DAILY@0800 Gemtesa 75 mg tablet 75 mg PO DAILY tirzepatide (weight loss) 5 mg/0.5 mL pen injector 5 mg subcut TU nitroglycerin [Nitrostat] 0.4 mg tablet, sublingual 0.4 mg SUBLINGUAL Q5-15M PRN (Reason: chest pain) Qty: 25 3RF metoprolol tartrate 25 mg tablet 25 mg PO BID Qty: 180 3RF citalopram 20 mg tablet 20 mg PO DAILY Qty: 90 1RF lisinopril 2.5 mg tablet 2.5 mg PO QHS Qty: 90 3RF pantoprazole 40 mg tablet,delayed release (DR/EC) 40 mg PO DAILY Qty: 90 1RF Referrals / Follow Up: Janis Lehman MD [Primary Care Provider] - Disposition Disposition (needs filled in before D/C Order can be placed): Home, Self Care
--- NOTE | 2024-12-25 08:48 | PCM.OPRPT ---
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 Type of Anesthesia: MAC RN Documented Start/Stop Times: Operation Date: 12/25/24 07:30 Case Time Into Pre-Op 12/25/24 06:11 Out of Pre-Op 12/25/24 08:00 Anesthesia Start 12/25/24 08:02 Into Room 12/25/24 08:02 Procedure Start 12/25/24 08:17 Procedure End 12/25/24 08:21 Anesthesia End 12/25/24 08:27 Out of Room 12/25/24 08:27 Into Recovery 12/25/24 08:30 Into Phase II Recovery 12/25/24 08:44 Out of Recovery 12/25/24 08:44 Procedure Start Time: 08:17 Procedure Stop Time: 08:21 Select all DRAINS/GRAFTS/IMPLANTS that apply: None Estimated Blood Loss: <5cc Specimen collected: Yes Description of specimen(s) removed: Bladder biopsy Description of surgery: The patient is a 69-year-old female with recurrent infections who had a cystoscopy in the office revealing erythematous mucosa. She presents for bladder biopsy with fulguration. Informed consent was obtained. The patient was taken to the operating room and placed on the operating room table. Anesthesia monitored the head, neck, airway, IV access and vital signs throughout the case. Once anesthesia was appropriate ministered she was placed into dorsal lithotomy position and was prepped and draped in usual sterile fashion. The cystoscope was inserted through the urethra under direct visualization into the urinary bladder. The bladder mucosa was visualized in its entirety. There was significant improvement in her bladder mucosa. The area of concern was reduced to 2 separate 5 mm erythematous spots that were biopsied with flexible biopsy forceps. These areas were fulgurated for hemostatic control and tissue treatment. Her bladder was then emptied and the cystoscope was removed. She was awakened and taken to the recovery room in good condition. There were no complications during this procedure. Surgical Findings: Significant improvement in the appearance of her bladder mucosa. Mild inflammation remaining was biopsied. Complications Complications: No Admit VTE Documentation VTE Present on Admission: Yes VTE Mechan Device Prophylaxis: SCD's VTE Pharm Prophylaxis ordered?: No Reason prophylaxis not ordered: Treatment Not Indicated
--- NOTE | 2024-12-25 11:27 | POSTOPAN2_ITS ---
Anesthesia Postop Eval I Sum Postop Eval Completion status Anesthesia document: Postop Eval 1 completed: Yes Anesthesia Postop Eval I Summary Anesthesia Postop Eval I Summary: Anesthesia Postop Eval I: Assessment Summary Airway patent Yes 12/25/24 08:34 ADULT LIVE IN CAREGIVER.JDEF Spontaneous unlabored Yes 12/25/24 08:34 ADULT LIVE IN CAREGIVER.JDEF respirations Mental status Awake 12/25/24 08:34 ADULT LIVE IN CAREGIVER.JDEF nausea No 12/25/24 08:34 ADULT LIVE IN CAREGIVER.JDEF Vomiting No 12/25/24 08:34 ADULT LIVE IN CAREGIVER.JDEF Anesthesia Postop Eval I: Fluid Summary Crystalloid volume administer 300 12/25/24 08:34 ADULT LIVE IN CAREGIVER.JDEF (ml) Colloids volume administered ( ml) Blood Product volume administered (ml) Total IV fluid infused 300 12/25/24 08:34 ADULT LIVE IN CAREGIVER.JDEF Anesthesia Postop Eval I: Summary Notes Anesthesia Complication No 12/25/24 08:34 ADULT LIVE IN CAREGIVER.JDEF Anesthesia Complication Comment: Post-operative progress note Anesthesia: Postop Eval II Evaluation Mental status: Awake Pain Level: 0 nausea: No Vomiting: No Complications Anesthesia Complication: No
--- NOTE | 2024-12-25 11:27 | PCM.POSTANE2 ---
Anesthesia Postop Eval I Sum Postop Eval Completion status Anesthesia document: Postop Eval 1 completed: Yes Anesthesia Postop Eval I Summary Anesthesia Postop Eval I Summary: Anesthesia Postop Eval I: Assessment Summary Airway patent Yes 12/25/24 08:34 [employer]USTRIAL [email or web address] Spontaneous unlabored Yes 12/25/24 08:34 INDUSTRIAL [email or web address] respirations Mental status Awake 12/25/24 08:34 INDUSTRIAL [email or web address] nausea No 12/25/24 08:34 INDUSTRIAL [email or web address].[email or web address] Vomiting No 12/25/24 08:34 INDUSTRIAL [email or web address] Anesthesia Postop Eval I: Fluid Summary Crystalloid volume administer 300 12/25/24 08:34 [employer]USTRI[employer] [email or web address] (ml) Colloids volume administered ( ml) Blood Product volume administered (ml) Total IV fluid infused 300 12/25/24 08:34 INDUSTRIAL [email or web address] Anesthesia Postop Eval I: Summary Notes Anesthesia Complication No 12/25/24 08:34 INDUSTRIAL [email or web address] Anesthesia Complication Comment: Post-operative progress note Anesthesia: Postop Eval II Evaluation Mental status: Awake Pain Level: 0 nausea: No Vomiting: No Complications Anesthesia Complication: No
== END 2024-12-25 09:18 | disposition home or self-care (01) ==
LOC: SDC 05:59 → AC 06:00
PROVIDERS: Anesthesiology; PCP Internal Medicine; Referring Provider Urology; Visit Provider Urology
PROC: 0TBB8ZX Excision of Bladder, Via Natural or Artificial Opening Endoscopic, Diagnostic (ICD-10-PCS; CPT 52234; principal; 2024-12-25 07:20)
DX: N30.20 Other chronic cystitis without hematuria (principal); M06.9 Rheumatoid arthritis, unspecified; N32.81 Overactive bladder; R35.1 Nocturia; N39.46 Mixed incontinence; N95.2 Postmenopausal atrophic vaginitis; N32.89 Other specified disorders of bladder; I10 Essential (primary) hypertension; G25.81 Restless legs syndrome; K76.0 Fatty (change of) liver, not elsewhere classified; K21.9 Gastro-esophageal reflux disease without esophagitis; F32.A Depression, unspecified; Z79.899 Other long term (current) drug therapy; Z87.891 Personal history of nicotine dependence; Z86.73 Personal history of transient ischemic attack (TIA), and cerebral infarction without residual deficits; Z95.5 Presence of coronary angioplasty implant and graft
CPT/HCPCS: 52234; 00912; 36415; 80048; 80076; 85027; 85610; 85730; 88305; 93005; J2405

== ENCOUNTER → 2025-02-13 | Outpatient (CLI) | payer MEDICARE, BC, SELFPAY ==
[2025-02-13 10:39] LABS: Hematocrit 42.7 % (37-47); Hemoglobin 15.2 g/dL (12.0-15.0); Immature Granulocytes Count 0.050 X10^3/uL (0.0-0.0); Mean Corp Hgb Conc 35.6 g/dL (32-36); Mean Corpuscular Volume 93.2 fL (81-99); Mean Platelet Vol. 8.6 fl (6.2-12.0); NRBC Flagged by Analyzer 0 % (0-5); Platelet Count 198 K/mm3 (150-450); RBC Distribution Width CV 12.1 % (11.6-14.6); RBC Distribution Width SD 41.6 fl (35.1-43.9); Red Blood Count 4.58 M/mm3 (4.2-5.4); White Blood Count 8.3 K/mm3 (4.4-11.0)
[2025-02-13 12:18] LABS: AST(SGOT) 79 U/L (<=31); Alanine Aminotransfer ALT/SGPT 125 U/L (<=34); Albumin, Serum 4.2 g/dL (3.4-4.8); Alkaline Phosphatase 123 U/L (35-104); Anion Gap 13 (5-15); BUN 13 mg/dL (4-19); BUN/Creat Ratio 24.6 RATIO (10-20); Bilirubin, Direct 0.22 mg/dL (0.00-0.30); Calcium,Total 9.7 mg/dL (7.6-11.0); Carbon Dioxide 24.9 mmol/L (21.0-32.0); Chloride 103 mmol/L (98-108); Cholesterol 164 mg/dL (<=200); Globulin 3.0 g/dL (2.2-4.2); Glucose 110 mg/dL (70-99); Low Density Lipoprotein Calc. 81 mg/dL; Potassium 4.5 mmol/L (3.3-5.1); Triglycerides 121 mg/dL; Very Low Density Lipoprotein 24 mg/dL (5-40); cholesterol:hdl ratio screen 2.77
== END | disposition home or self-care (01) ==
PROVIDERS: PCP Internal Medicine; Referring Provider Internal Medicine; Visit Provider Internal Medicine Rheumatology
DX: K75.81 Nonalcoholic steatohepatitis (NASH) (principal); D64.9 Anemia, unspecified; R74.8 Abnormal levels of other serum enzymes; E66.9 Obesity, unspecified; K21.9 Gastro-esophageal reflux disease without esophagitis
CPT/HCPCS: 36415; 80053; 80061; 82248; 85025